=== PATIENT | male | born 1965 | race Caucasian/White ===

== ENCOUNTER 2017-03-22 14:29 | Emergency (ER) | payer BC ==
[2017-03-22 14:53] VITALS: RESP 20
[2017-03-22] MEDS ORDERED: MORPHINE SULFATE 4 MG/ML SYRINGE IV STA (15:51)
[2017-03-22] MEDS ORDERED: SODIUM CHLORIDE 0.9% 1,000 ML IV STA (15:51)
[2017-03-22] MEDS ORDERED: KETOROLAC 30 MG/ML 1 ML VIAL IVP STA (15:52)
--- NOTE | 2017-03-22 15:52 | ED ---
General Adult HPI - General Chief complaint: Extremity Injury, Lower Stated complaint: Fall/sent by [employer] Time Seen by Provider: 03/22/17 15:42 Source: patient, RN notes reviewed, old records reviewed Mode of arrival: ambulatory Limitations: no limitations - History of Present Illness Initial comments: This is a 51-year-old male is presented here today for evaluation of right leg pain and swelling. Patient denies any significant medical history, takes no medications. Patient recently seen in urgent care earlier today for evaluation of her lower extremity edema and pain, severe x-ray pain swallowing, swelling worse and he wakes up in the morning better through the day, symptoms all started after a fall off a ladder 3 days 4 days ago. Patient sustained some abrasions to his anterior germain which now have erythema and pain. As well as increased swelling and bruising of his right leg more so than his left but also some bruising on his left leg as well. Patient bilateral lower extremity edema much worse on the right with no prior history of leg edema - Related Data Home Medications Medication Instructions Recorded Confirmed Omeprazole [PriLOSEC] 20 mg PO BID 06/30/15 03/22/17 Naproxen [Naprosyn] 500 mg PO BID 03/22/17 03/22/17 Testosterone [Androgel 1.62% Gel 2 applic TOPICAL DAILY 03/22/17 03/22/17 Pump] Previous Rx's Medication Instructions Recorded Cephalexin [Keflex] 500 mg PO Q6HR #28 cap 03/22/17 HYDROcodone/APAP 5-325MG [[place] 1 tab PO Q6HR PRN #30 tab 03/22/17 5-325] Allergies Allergy/AdvReac Type Severity Reaction Status Date / Time Iodinated Contrast Media - Allergy Anaphylaxis Verified 03/22/17 14:53 Oral and [Iodinated Contrast Media - IV Dye] General Anesthesia AdvReac Severe Malignant Uncoded 03/22/17 16:06 Hyperthermia Review of Systems ROS Statement: Those systems with pertinent positive or pertinent negative responses have been documented in the HPI. ROS Other: All systems not noted in ROS Statement are negative. Past Medical History Past Medical History: No Reported History History of Any Multi-Drug Resistant Organisms: None Reported Past Surgical History: Appendectomy, Joint Replacement, Orthopedic Surgery Past Psychological History: No Psychological Hx Reported Smoking Status: Former smoker Past Alcohol Use History: Occasional Past Drug Use History: None Reported General Exam Limitations: no limitations General appearance: alert, in no apparent distress Head exam: Present: atraumatic, normocephalic, normal inspection Eye exam: Present: normal appearance, PERRL, EOMI. Absent: scleral icterus, conjunctival injection, periorbital swelling ENT exam: Present: normal exam, mucous membranes moist Neck exam: Present: normal inspection. Absent: tenderness, meningismus, lymphadenopathy Respiratory exam: Present: normal lung sounds bilaterally. Absent: respiratory distress, wheezes, rales, rhonchi, stridor Cardiovascular Exam: Present: regular rate, normal rhythm, normal heart sounds. Absent: systolic murmur, diastolic murmur, rubs, gallop, clicks GI/Abdominal exam: Present: soft, normal bowel sounds. Absent: distended, tenderness, guarding, rebound, rigid Extremities exam: Present: normal inspection, full ROM, normal capillary refill , other (Right LE edema, ecchymosis through thigs, 2 abrasions with ulceration and healing w surrounding edema, erythema and warmth, mild decrease in sensation ). Absent: tenderness, pedal edema, joint swelling, calf tenderness Back exam: Present: normal inspection Neurological exam: Present: alert, oriented X3, CN II-XII intact Psychiatric exam: Present: normal affect, normal mood Skin exam: Present: warm, dry, intact, normal color. Absent: rash Course Vital Signs 03/22/17 03/22/17 14:51 18:53 Temperature 98.1 F 98.2 F Pulse Rate 78 66 Respiratory 20 20 Rate Blood Pressure 133/74 122/57 O2 Sat by Pulse 99 99 Oximetry - Reevaluation(s) Reevaluation #1: 03/22/17 19:53 Patient still complaining of severe pain, Dr. Verdugo was called to evaluate patient regarding possible compartment syndrome versus cause of pain. Patient will be given pain control Medical Decision Making - Medical Decision Making 54 male to the ER for evaluation of right lower extremity pain. Patient has severe pain in the hematoma right leg. Patient was given pain control, and - Lab Data Result diagrams: 03/22/17 16:20 03/22/17 16:20 Lab Results 03/22/17 03/22/17 03/22/17 Range/Units 16:20 16:20 16:20 WBC 7.4 (3.8-10.6) k/uL RBC 4.39 (4.30-5.90) m/uL Hgb 15.1 (13.0-17.5) gm/dL Hct 41.5 (39.0-53.0) % MCV 94.7 (80.0-100.0) fL MCH 34.5 (25.0-35.0) pg MCHC 36.4 (31.0-37.0) g/dL RDW 13.0 (11.5-15.5) % Plt Count 224 (150-450) k/uL Neutrophils % 68 % Lymphocytes % 20 % Monocytes % 6 % Eosinophils % 3 % Basophils % 0 % Neutrophils # 5.0 (1.3-7.7) k/uL Lymphocytes # 1.5 (1.0-4.8) k/uL Monocytes # 0.4 (0-1.0) k/uL Eosinophils # 0.2 (0-0.7) k/uL Basophils # 0.0 (0-0.2) k/uL PT (9.0-12.0) sec INR (<1.1) APTT (22.0-30.0) sec D-Dimer (<0.60) mg/L FEU Sodium 141 (137-145) mmol/L Potassium 4.4 (3.5-5.1) mmol/L Chloride 105 (98-107) mmol/L Carbon Dioxide 25 (22-30) mmol/L Anion Gap 11 mmol/L BUN 22 H (9-20) mg/dL Creatinine 0.80 (0.66-1.25) mg/dL Est GFR (MDRD) Af Amer >60 (>60 ml/min/1.73 sqM) Est GFR (MDRD) Non-Af >60 (>60 ml/min/1.73 sqM) Glucose 110 H (74-99) mg/dL Calcium 9.1 (8.4-10.2) mg/dL Phosphorus 3.0 (2.5-4.5) mg/dL Magnesium 1.9 (1.6-2.3) mg/dL Total Bilirubin 0.6 (0.2-1.3) mg/dL AST 35 (17-59) U/L ALT 44 (21-72) U/L Alkaline Phosphatase 66 (38-126) U/L Total Creatine Kinase 351 H (55-170) U/L CK-MB (CK-2) 1.7 (0.0-2.4) ng/mL CK-MB (CK-2) Rel Index 0.5 C-Reactive Protein 9.3 (<10.0) mg/L Total Protein 6.8 (6.3-8.2) g/dL Albumin 3.9 (3.5-5.0) g/dL 03/22/17 Range/Units 16:20 WBC (3.8-10.6) k/uL RBC (4.30-5.90) m/uL Hgb (13.0-17.5) gm/dL Hct (39.0-53.0) % MCV (80.0-100.0) fL MCH (25.0-35.0) pg MCHC (31.0-37.0) g/dL RDW (11.5-15.5) % Plt Count (150-450) k/uL Neutrophils % % Lymphocytes % % Monocytes % % Eosinophils % % Basophils % % Neutrophils # (1.3-7.7) k/uL Lymphocytes # (1.0-4.8) k/uL Monocytes # (0-1.0) k/uL Eosinophils # (0-0.7) k/uL Basophils # (0-0.2) k/uL PT 9.9 (9.0-12.0) sec INR 1.0 (<1.1) APTT 23.2 (22.0-30.0) sec D-Dimer 0.42 (<0.60) mg/L FEU Sodium (137-145) mmol/L Potassium (3.5-5.1) mmol/L Chloride (98-107) mmol/L Carbon Dioxide (22-30) mmol/L Anion Gap mmol/L BUN (9-20) mg/dL Creatinine (0.66-1.25) mg/dL Est GFR (MDRD) Af Amer (>60 ml/min/1.73 sqM) Est GFR (MDRD) Non-Af (>60 ml/min/1.73 sqM) Glucose (74-99) mg/dL Calcium (8.4-10.2) mg/dL Phosphorus (2.5-4.5) mg/dL Magnesium (1.6-2.3) mg/dL Total Bilirubin (0.2-1.3) mg/dL AST (17-59) U/L ALT (21-72) U/L Alkaline Phosphatase (38-126) U/L Total Creatine Kinase (55-170) U/L CK-MB (CK-2) (0.0-2.4) ng/mL CK-MB (CK-2) Rel Index C-Reactive Protein (<10.0) mg/L Total Protein (6.3-8.2) g/dL Albumin (3.5-5.0) g/dL - Radiology Data Radiology results: report reviewed (US negative for DVT, XR tib fib,/ femur negative for fracture), image reviewed Disposition Clinical Impression: Leg edema, right, Cellulitis, leg Disposition: HOME SELF-CARE Condition: Good Instructions: Cellulitis (ED), Leg Edema (ED), Hematoma (ED) Prescriptions: Cephalexin [Keflex] 500 mg PO Q6HR #28 cap HYDROcodone/APAP 5-325MG [[place] 5-325] 1 tab PO Q6HR PRN #30 tab PRN Reason: Pain Referrals: Juwan Verdugo DO [Doctor of Osteopathic Medicine] - 1-2 days
[2017-03-22] MEDS ORDERED: ACETAMINOPHEN IV (For NPO) 1,000 MG in EMPTY BAG 1 BAG IVPB STA (15:54)
[2017-03-22 16:50] LABS: Basophils % (A) 0 %; CH 33.8; CHCM 35.9; Eosinophils # (A) 0.2 k/uL (0-0.7); Eosinophils % (A) 3 %; HCT 41.5 % (39.0-53.0); HDW 2.79; HGB 15.1 gm/dL (13.0-17.5); Luc # (Auto) 0.23; Luc % (Auto) 3; Lymphocytes # (A) 1.5 k/uL (1.0-4.8); Lymphocytes % (A) 20 %; MCH 34.5 pg (25.0-35.0); MCHC 36.4 g/dL (31.0-37.0); MCV 94.7 fL (80.0-100.0); Mean Platelet Volume 6.8; Monocytes # (A) 0.4 k/uL (0-1.0); Monocytes % (A) 6 %; Neutrophils % (A) 68 %; RBC 4.39 m/uL (4.30-5.90); WBC 7.4 k/uL (3.8-10.6); WBC (Perox) 7.47
[2017-03-22 16:55] LABS: ALT 44 U/L (21-72); AST 35 U/L (17-59); Alkaline Phosphatase 66 U/L (38-126); Anion Gap 11 mmol/L; Blood Urea Nitrogen 22 mg/dL (9-20); C Reactive Protein 9.3 mg/L (<10.0); Calcium 9.1 mg/dL (8.4-10.2); Carbon Dioxide 25 mmol/L (22-30); Chloride 105 mmol/L (98-107); Glucose 110 mg/dL (74-99); Magnesium 1.9 mg/dL (1.6-2.3); Non-African American GFR(MDRD) >60 (>60 ml/min/1.73 sqM); Potassium 4.4 mmol/L (3.5-5.1); Sodium 141 mmol/L (137-145); Total Bilirubin 0.6 mg/dL (0.2-1.3); Total Protein 6.8 g/dL (6.3-8.2)
[2017-03-22 16:59] LABS: Partial Thromboplastin Time 23.2 sec (22.0-30.0); Prothrombin Time 9.9 sec (9.0-12.0)
[2017-03-22 17:18] LABS: Creatine Kinase MB 1.7 ng/mL (0.0-2.4)
--- NOTE | 2017-03-22 17:38 | US ---
EXAMINATION TYPE: US venous doppler duplex LE RT DATE OF EXAM: 03/22/2017 3:52 PM COMPARISON: NONE CLINICAL HISTORY: Pain, injury. SIDE PERFORMED: Right TECHNIQUE: The lower extremity deep venous system is examined utilizing real time linear array sonog jonathan with graded compression, doppler sonography and color-flow sonography. VESSELS IMAGED: External Iliac Vein (EIV) Common Femoral Vein Deep Femoral Vein Greater Saphenous Vein * Femoral Vein Popliteal Vein Small Saphenous Vein * Proximal Calf Veins (* superficial vessels) Right Leg: Negative for DVT IMPRESSION: Normal exam. No evidence of deep venous thrombosis in the right leg.
--- NOTE | 2017-03-22 20:06 | P.HPOR ---
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 He had significant pain in his right leg he thought that he broke his leg at the time of the injury. He was able to get up and starts moving around with significant pain over his thigh. He decided that point that he would wait and see how things went with the injury and chose not to present to the hospital at that point. The patient says her significant swelling over his thigh which is traveling down his leg into his lower leg and calf. He was able to bear weight he is able to bend his knee but his ankle and toes and try to work this week. He says he has been up and down at work doing stairs and has not been able to elevate his leg at work. He has significant swelling through the day which resolved to some degree overnight and into the morning when he has his leg elevated. He says the pain has been persistent but is worse with the swelling. The pain is mainly over his right inner thigh towards the medial aspect of his knee and now is down and his anterior lower leg and calf. He says he is feeling numbness over his anterior leg over his tibia and is not having pain in his foot and toes. He denies other injury. He denies any chest pain shortness of breath. He denies any history of injury similar to this at his leg before. He says he has had knee surgeries on his right knee in the past but has not been having problems with his right knee. He denies any pain in the left lower extremity. Denies pain in his neck or upper extremity. Denies any chest pain or shortness of breath. Review of Systems As stated in HPI. He admits to some numbness in his anterior tibia. He says is worse with swelling. He says he has been having significant swelling in his right lower leg. He has no numbness tingling in his toes and foot. No back pain. Past Medical History Past Medical History: No Reported History, Musculoskeletal Disorder (History of prior arthroscopic surgeries in his knee on the right. Some history of left lateral epicondylitis) History of Any Multi-Drug Resistant Organisms: None Reported Past Surgical History: Appendectomy, Joint Replacement, Orthopedic Surgery Past Psychological History: No Psychological Hx Reported Smoking Status: Former smoker Past Alcohol Use History: Occasional Past Drug Use History: None Reported Medications and Allergies Home Medications Medication Instructions Recorded Confirmed Type Omeprazole [PriLOSEC] 20 mg PO BID 06/30/15 03/22/17 History Naproxen [Naprosyn] 500 mg PO BID 03/22/17 03/22/17 History Testosterone [Androgel 1.62% Gel 2 applic TOPICAL DAILY 03/22/17 03/22/17 History Pump] Allergies Allergy/AdvReac Type Severity Reaction Status Date / Time Iodinated Contrast Media - Allergy Anaphylaxis Verified 03/22/17 14:53 Oral and [Iodinated Contrast Media - IV Dye] General Anesthesia AdvReac Severe Malignant Uncoded 03/22/17 16:06 Hyperthermia Physical Examination Osteopathic Statement: *. No significant issues noted on an osteopathic structural exam other than those noted in the History and Physical/Consult. - Knee left Appearance: ecchymosis (At the patient's right lower extremity there is significant ecchymosis over his right inner thigh. His thigh is tender but has some swelling. He has some point tenderness over his medial proximal tibia. There is no specific effusion in his knee but he has diffuse swelling in his knee. There is some superficial abrasion 2 had his anterior tibia there is no purulence there is no erythema. He has diffuse swelling at his right lower leg. His calf has some diffuse tenderness as does his anterior tibialis. He is able to flex and extend his knee he flexes knee to approximately 110 and extends it fully. He is able to lift his leg up off the bed he has no pain with internal or external rotation at his hip. He has sustained dorsal flexion plantarflexion and EHL intact. Pulses are 2 out of 4 capillary refill less than 2 seconds he does not have pain with passive range of motion at his ankle foot and toes. His compartments have some swelling but they're still relatively soft.) Results - Labs Labs: Abnormal Lab Results - Last 24 Hours (Table) 03/22/17 03/22/17 Range/Units 16:20 16:20 BUN 22 H (9-20) mg/dL Glucose 110 H (74-99) mg/dL Total Creatine Kinase 351 H (55-170) U/L H & H 03/22/17 Range/Units 16:20 Hgb 15.1 (13.0-17.5) gm/dL Hct 41.5 (39.0-53.0) % Coagulation 03/22/17 Range/Units 16:20 INR 1.0 (<1.1) Result Diagrams: 03/22/17 16:20 03/22/17 16:20 - Diagnostic results Hip x-ray: report reviewed, image reviewed (X-rays of his right femur do not show evidence of any fracture. There is no evidence of dislocation or bony erosion.) Assessment and Plan Plan: Status post fall from approximately 4 feet approximately 4 days ago Right lower extremity pain and swelling with ecchymosis Significant soft tissue injury right lower extremity Possible soft tissue shearing at his right medial thigh with hematoma accumulation The patient has significant soft tissue injury to his right leg. I think that the primary issue is the shearing type hematoma that is developed his right proximal thigh which is acute due to his fall. He seems to have had some bleeding which traveled down around his knee and right lower leg causing severe pain and swelling in his right lower leg. His compartments remain soft and he is not having pain with passive range of motion. He still has active in intact range of motion at his knee ankle foot and toes I do not think that he has an acute compartment syndrome. 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 He is remain off work tomorrow and should follow up with me as an outpatient on March 24. He may weight-bear but should avoid any significant upright position and should try to remain horizontal with his leg elevated.. He should ice over his right proximal thigh. He has been taking regular anti-inflammatories chronically and this may have caused some thinning of his blood. I think that he may do well with some acute pain medication to help control his pain in the short-term. I discussed this with him and his . They're agreeable. If he has worsening she returned back to the emergency room but she is maintaining or improving I think I can follow him up on an outpatient basis in the next 2 days. He should remain off work at least until he is seen in the office. I answered his questions best my ability G understand he is agreeable. I discussed case with Dr. Soares In the emergency room and he is agreeable as well. They'll plan for his discharge from the emergency room for follow-up in just 2 days. Time with Patient: Greater than 30
[2017-03-22 20:31] VITALS: BP 124/60; PULSE 85; TEMP 98.5
== END 2017-03-22 20:31 | disposition home or self-care (01) ==
LOC: EC 14:29
DX: L03.115 Cellulitis of right lower limb (principal); S80.11XA Contusion of right lower leg, initial encounter; S80.12XA Contusion of left lower leg, initial encounter; W11.XXXA Fall on and from ladder, initial encounter; Z91.041 Radiographic dye allergy status; Z87.891 Personal history of nicotine dependence; Z88.4 Allergy status to anesthetic agent; Z79.899 Other long term (current) drug therapy
CPT/HCPCS: 99284; 96374; 96361; 36415; 85379; 80053; 82550; 82553; 83735; 84100; 85025; 85610; 85730; 86140; 87040; 93971; J1885; J0131

== ENCOUNTER 2017-03-27 19:25 | Inpatient (IN) | payer BC ==
--- NOTE | 2017-03-27 20:05 | ED ---
Lower Extremity Injury HPI - General Chief Complaint: Extremity Injury, Lower Stated Complaint: Leg Infection Time Seen by Provider: 03/27/17 19:43 Source: patient Mode of arrival: ambulatory Limitations: no limitations - History of Present Illness Initial Comments: Patient is a 51-year-old male who presents with a chief complaint of cellulitis of the right lower extremity. The patient states that this has been going on for 3 days secondary to an injury he sustained. Patient fell onto his right leg , in a freshwater environment. Patient states that it was a contaminated area as there was animal (duck) fecal material present where he fell. Patient was seen at urgent care, and by orthopedic surgery. Orthopedics is concerned that there may be a stress fracture, urgent care diagnosed him with cellulitis, placed him on Keflex, and discharged him. Over the last day, the affected area has been getting larger. There are 2 areas of abrasion, both of which are weeping purulent material. Patient describes his pain as sharp and aching, mostly throbbing. His pain is aggravated by bearing weight, and flexing and extending the ankle. MD Complaint: leg injury Onset/Timin -: days(s) Injury: Leg: Right (Right lower extremity between the knee and ankle. Affected area is not circumferential however it is rapidly growing.) Type of Injury: blunt Place: street/outdoors Severity: moderate Improves With: NSAID Worsens With: weight bearing, movement Context: fall Associated Symptoms: swelling Treatments Prior to Arrival: other (Keflex) - Related Data Home Medications Medication Instructions Recorded Confirmed Omeprazole [PriLOSEC] 20 mg PO BID 06/30/15 03/27/17 Testosterone [Androgel 1.62% Gel 2 applic TOPICAL DAILY 03/22/17 03/27/17 Pump] Ibuprofen [Motrin] 800 mg PO TID PRN 03/27/17 03/27/17 Previous Rx's Medication Instructions Recorded Cephalexin [Keflex] 500 mg PO Q6HR #28 cap 03/22/17 Allergies Allergy/AdvReac Type Severity Reaction Status Date / Time Iodinated Contrast Media - Allergy Anaphylaxis Verified 03/27/17 21:57 Oral and [Iodinated Contrast Media - IV Dye] General Anesthesia AdvReac Severe Malignant Uncoded 03/27/17 19:37 Hyperthermia Review of Systems ROS Statement: Those systems with pertinent positive or pertinent negative responses have been documented in the HPI. ROS Other: All systems not noted in ROS Statement are negative. Skin: Reports: lesions Past Medical History Past Medical History: No Reported History History of Any Multi-Drug Resistant Organisms: None Reported Past Surgical History: Appendectomy, Joint Replacement, Orthopedic Surgery Additional Past Surgical History / Comment(s): bilat knee x 6, c5-6 fusion 1999 , right rotator cup, deviated septum rx Past Psychological History: No Psychological Hx Reported Smoking Status: Former smoker Past Alcohol Use History: Occasional Past Drug Use History: None Reported General Exam Limitations: no limitations General appearance: alert, in no apparent distress Head exam: Present: atraumatic, normocephalic Eye exam: Present: normal appearance, PERRL ENT exam: Present: mucous membranes moist Neck exam: Present: normal inspection Respiratory exam: Present: normal lung sounds bilaterally Cardiovascular Exam: Present: regular rate, normal rhythm GI/Abdominal exam: Present: soft Extremities exam: Present: tenderness (He has tenderness to palpation of the right lower extremity. The skin is erythematous, with 2 areas of abrasion there is purulent drainage from both sites anteriorly.) Neurological exam: Present: alert, oriented X3 Psychiatric exam: Present: normal affect, normal mood Skin exam: Present: erythema, abrasion, other (Abrasions and erythema as described in the musculoskeletal exam) Course Vital Signs 03/27/17 03/27/17 03/27/17 19:30 21:26 22:01 Temperature 97.8 F 97.9 F Pulse Rate 85 71 63 Respiratory 18 18 16 Rate Blood Pressure 138/72 140/62 141/74 O2 Sat by Pulse 97 98 98 Oximetry Medical Decision Making - Medical Decision Making 8:07 PM Patient presents with cellulitis of the right lower extremity, refractory to outpatient antibiotic therapy. Given the duration, and rapid spreading of the erythematous area, it would be best to admit the patient for IV antibiotics. The patient was started on vancomycin and cefepime for broad coverage given the patient was in a freshwater, contaminated environment. Patient has seen Dr. Verdugo on an outpatient basis and he will be consult at this time. Wound cultures will be sent. 10:05 PM Lab evaluation of this patient is unremarkable except for an elevated CRP of 14.5. X-ray of the right tib-fib does not show any acute process, or air within the subcu tissue. Patient was started on vancomycin, and cefepime. This case was discussed with Dr. Knox's nurse practitioner, Swathi Vicente who accepts admission of this patient for IV antibiotics. Dr. Verdugo has been consult as the patient was supposed to see him in his office tomorrow. Patient remained stable in the emergency department. He is stable for transfer to the floor. - Lab Data Result diagrams: 03/27/17 20:15 03/27/17 19:55 Lab Results 03/27/17 03/27/17 Range/Units 19:55 20:15 WBC 7.6 (3.8-10.6) k/uL RBC 4.43 (4.30-5.90) m/uL Hgb 15.0 (13.0-17.5) gm/dL Hct 41.5 (39.0-53.0) % MCV 93.6 (80.0-100.0) fL MCH 33.9 (25.0-35.0) pg MCHC 36.2 (31.0-37.0) g/dL RDW 12.8 (11.5-15.5) % Plt Count 241 (150-450) k/uL Neutrophils % 62 % Lymphocytes % 23 % Monocytes % 7 % Eosinophils % 4 % Basophils % 1 % Neutrophils # 4.7 (1.3-7.7) k/uL Lymphocytes # 1.7 (1.0-4.8) k/uL Monocytes # 0.6 (0-1.0) k/uL Eosinophils # 0.3 (0-0.7) k/uL Basophils # 0.1 (0-0.2) k/uL ESR 13 (0-15) mm/hr Sodium 142 (137-145) mmol/L Potassium 4.1 (3.5-5.1) mmol/L Chloride 107 (98-107) mmol/L Carbon Dioxide 25 (22-30) mmol/L Anion Gap 10 mmol/L BUN 21 H (9-20) mg/dL Creatinine 0.90 (0.66-1.25) mg/dL Est GFR (MDRD) Af Amer >60 (>60 ml/min/1.73 sqM) Est GFR (MDRD) Non-Af >60 (>60 ml/min/1.73 sqM) Glucose 96 (74-99) mg/dL Calcium 9.7 (8.4-10.2) mg/dL C-Reactive Protein 14.5 H (<10.0) mg/L Disposition Clinical Impression: Cellulitis, Failure of outpatient treatment, Cellulitis, leg Disposition: ADMITTED IP TO THIS HOSP Referrals: Jewell August MD [Primary Care Provider] - 1-2 days Decision to Admit Reason: Admit from [facility] - Out of Hospital Transfer - Req. Specs Out of Hospital Transfer - Requested Specifics: Other Non-Acute
[2017-03-27] MEDS ORDERED: CEFEPIME 1 GM in SODIUM CHLORIDE 0.9% 50 ML IVPB STA (20:06)
[2017-03-27] MEDS ORDERED: IV VANCOMYCIN PER PHARMACY 1 EACH MISC MISCELLANE PRN (20:12)
[2017-03-27] MEDS ORDERED: VANCOMYCIN 2,250 MG in SODIUM CHLORIDE 0.9% 500 ML IVPB STA (20:13)
[2017-03-27 20:38] LABS: Basophils # (A) 0.1 k/uL (0-0.2); Basophils % (A) 1 %; CH 33.7; CHCM 36.1; Eosinophils # (A) 0.3 k/uL (0-0.7); Eosinophils % (A) 4 %; HCT 41.5 % (39.0-53.0); HDW 2.92; Luc # (Auto) 0.22; Luc % (Auto) 3; Lymphocytes # (A) 1.7 k/uL (1.0-4.8); Lymphocytes % (A) 23 %; MCH 33.9 pg (25.0-35.0); MCHC 36.2 g/dL (31.0-37.0); MCV 93.6 fL (80.0-100.0); Mean Platelet Volume 6.8; Monocytes # (A) 0.6 k/uL (0-1.0); Monocytes % (A) 7 %; Neutrophils # (A) 4.7 k/uL (1.3-7.7); Neutrophils % (A) 62 %; RBC 4.43 m/uL (4.30-5.90); RDW 12.8 % (11.5-15.5); WBC 7.6 k/uL (3.8-10.6); WBC (Perox) 7.93
[2017-03-27 20:50] LABS: Anion Gap 10 mmol/L; Blood Urea Nitrogen 21 mg/dL (9-20); C Reactive Protein 14.5 mg/L (<10.0); Calcium 9.7 mg/dL (8.4-10.2); Carbon Dioxide 25 mmol/L (22-30); Chloride 107 mmol/L (98-107); Glucose 96 mg/dL (74-99); Non-African American GFR(MDRD) >60 (>60 ml/min/1.73 sqM); Potassium 4.1 mmol/L (3.5-5.1); Sodium 142 mmol/L (137-145)
--- NOTE | 2017-03-27 21:16 | XR ---
EXAMINATION TYPE: XR tibia fibula RT DATE OF EXAM: 03/27/2017 COMPARISON: NONE HISTORY: Pain after trauma TECHNIQUE: 4 orthogonal views from the knee to the ankle FINDINGS: Bones and joints and soft tissues are unremarkable. No radiopaque foreign bodies. No soft t issue emphysema. IMPRESSION: Negative examination.
[2017-03-27 21:54] LABS: Erythrocyte Sedimentation Rate 13 mm/hr (0-15)
[2017-03-27] MEDS ORDERED: ACETAMINOPHEN TAB 325 MG TAB PO PRN (21:59)
[2017-03-27] MEDS ORDERED: NALOXONE 0.4 MG/ML 1 ML VIAL IV PRN (21:59)
[2017-03-27] MEDS ORDERED: ONDANSETRON 4 MG/2 ML VIAL IVP STA (22:28)
[2017-03-27] MEDS ORDERED: MORPHINE SULFATE 4 MG/ML SYRINGE IVP STA (22:28)
[2017-03-27] MEDS ORDERED: MORPHINE SULFATE 4 MG/ML SYRINGE IVP PRN (22:29)
[2017-03-27] MEDS ORDERED: ONDANSETRON 4 MG/2 ML VIAL IVP PRN (22:29)
[2017-03-28] MEDS: oxyCODONE-APAP 5-325MG 1 EACH TAB PO PRN ×2 (02:28→08:49)
[2017-03-28] MEDS: VANCOMYCIN 2,000 MG in SODIUM CHLORIDE 0.9% 500 ML IVPB SCH ×3 (03:36→19:42)
[2017-03-28 05:51] VITALS: BMI 34.3
[2017-03-28 08:45] LABS: Anion Gap 7 mmol/L; Blood Urea Nitrogen 19 mg/dL (9-20); Calcium 8.5 mg/dL (8.4-10.2); Carbon Dioxide 28 mmol/L (22-30); Chloride 106 mmol/L (98-107); Glucose 94 mg/dL (74-99); Non-African American GFR(MDRD) >60 (>60 ml/min/1.73 sqM); Potassium 4.5 mmol/L (3.5-5.1); Sodium 141 mmol/L (137-145)
[2017-03-28] MEDS ORDERED: IBUPROFEN 200 MG TAB PO PRN (11:21)
[2017-03-28] MEDS ORDERED: HYDROmorphone 1 MG/ML 1 ML SYRINGE IVP PRN (11:22)
[2017-03-28] MEDS: HEPARIN SODIUM,PORCINE 5,000 UNIT/ML 1 ML VIAL SQ SCH ×2 (12:42→20:17)
[2017-03-28] MEDS: PANTOPRAZOLE 40 MG TABLET PO SCH ×2 (12:45→18:18)
--- NOTE | 2017-03-28 14:00 | P.CNOR ---
History of Present Illness - HPI Consult date: 03/28/17 History of present illness: This is a pleasant 51-year-old male who is admitted for failure of outpatient treatment of right lower extremity cellulitis. Patient states on March 18 he was washing his boat and slipped hitting his right leg on the wooden stairs of a dock. Patient states the mooney water surrounding the dock appeared contaminated. Patient states he had significant pain to the right lower extremity at this time and noticed two small open wounds on the right germain that were white. Patient states he was unable to put a lot of weight on the right lower extremity the first day of injury but has since been able to ambulate. Patient states he also had pain and bruising to the right thigh but this has improved. Two days after this incident patient noticed redness around the open wounds of the right lower extremity. Patient also noticed increased swelling and redness. Patient was treated at an urgent care and the emergency room with 2 doses of Rocephin and oral Keflex. Patient reports at this time a Doppler was done and was negative for DVT and compartment syndrome. Patient was also seen at [facility] for follow up as an outpatient and had an MRI done. Patient is unsure of the results of the MRI at this time. X-rays have been taken of the right lower extremity and patient states they were negative for any fracture. Patient reports that the erythema continued to worsen so he presented to the on 03/27/17 and was admitted for IV antibiotics. Today the patient states the erythema and swelling have started to improve after antibiotic therapy. Patient still has significant pain to the right lower extremity from the knee down. Patient states he has been able to ambulate. Patient denies any numbness, tingling or weakness today but states on the first day of injury his right lower extremity was numb. Patient denies any fever/ chills. Review of Systems See HPI. Past Medical History Past Medical History: No Reported History History of Any Multi-Drug Resistant Organisms: None Reported Past Surgical History: Appendectomy, Joint Replacement, Orthopedic Surgery Additional Past Surgical History / Comment(s): bilat knee x 6, c5-6 fusion 1999 , right rotator cup, deviated septum rx Past Anesthesia/Blood Transfusion Reactions: Family Hisory of Malignant Hyperthermia Past Psychological History: No Psychological Hx Reported Smoking Status: Former smoker Past Alcohol Use History: Occasional Past Drug Use History: None Reported - Past Family History Mother Family Medical History: No Reported History Father Family Medical History: No Reported History Medications and Allergies Home Medications Medication Instructions Recorded Confirmed Type Omeprazole [PriLOSEC] 20 mg PO BID 06/30/15 03/27/17 History Testosterone [Androgel 1.62% Gel 2 applic TOPICAL DAILY 03/22/17 03/27/17 History Pump] Ibuprofen [Motrin] 800 mg PO TID PRN 03/27/17 03/27/17 History Allergies Allergy/AdvReac Type Severity Reaction Status Date / Time Iodinated Contrast Media - Allergy Anaphylaxis Verified 03/27/17 21:57 Oral and [Iodinated Contrast Media - IV Dye] General Anesthesia AdvReac Severe Malignant Uncoded 03/27/17 19:37 Hyperthermia Physical Examination An exam of the right lower extremity there is generalized tenderness to palpation from the knee down. Patient has swelling of the right lower extremity especially in the area from the knee to the foot. There are 2 wounds located on the right germain with surrounding erythema. This area is warm to touch. No active drainage. Dorsalis pedis pulses are 2+. Patient has full foot and ankle motion. Patient has good range of motion of the knee. Patient has some ecchymosis to the medial aspect of the right thigh but the patient states this is improving. Neurovascular status is intact. Results X-rays of the right tibia/fibula were reviewed showing no acute fracture or dislocation. An MRI of the right lower extremity was done on March 24, 2017 at [facility] showing #1 subcutaneous hematoma within the anteromedial aspect of the proximal right calf. #2 diffuse right calf edema. Report by Dr. Yolanda BELTRAN - Labs Labs: Abnormal Lab Results - Last 24 Hours (Table) 03/27/17 Range/Units 19:55 BUN 21 H (9-20) mg/dL C-Reactive Protein 14.5 H (<10.0) mg/L Microbiology - Last 24 Hours (Table) 03/27/17 20:50 Gram Stain - Preliminary Leg - Right Wound Culture - Preliminary 03/27/17 20:50 Anaerobic Culture - Preliminary Leg - Right H & H 03/27/17 Range/Units 20:15 Hgb 15.0 (13.0-17.5) gm/dL Hct 41.5 (39.0-53.0) % Result Diagrams: 03/27/17 20:15 03/28/17 07:11 Assessment and Plan (1) Hematoma Status: Acute (2) Right leg pain Status: Acute (3) Cellulitis Status: Acute (4) Leg edema, right Status: Acute Plan: #1. Continue pain control #2. Continue IV antibiotics per infectious disease #3. Continue elevation of right lower extremity #4. Will follow the patient closely.
[2017-03-29] MEDS: oxyCODONE-APAP 5-325MG 1 EACH TAB PO PRN ×2 (01:42→23:33)
[2017-03-29] MEDS: VANCOMYCIN 2,000 MG in SODIUM CHLORIDE 0.9% 500 ML IVPB SCH ×2 (03:31→12:48)
[2017-03-29] MEDS: PANTOPRAZOLE 40 MG TABLET PO SCH ×2 (07:28→20:06)
[2017-03-29] MEDS: HEPARIN SODIUM,PORCINE 5,000 UNIT/ML 1 ML VIAL SQ SCH ×2 (07:28→20:09)
--- NOTE | 2017-03-29 09:18 | HP ---
The chief complaints are pain and swelling of the right leg. HISTORY OF PRESENT ILLNESS: This is a 51-year-old gentleman with the past medical history of appendectomy, DJD, otherwise, no other past medical history, being followed by Dr. August in the outpatient setting, apparently fell on the dog previously about on March 18. The patient had some erythema. Patient took some Keflex and the patient also noticed some increasing erythema and swelling and pain in the right leg and because of concern, the patient came to [facility] for further evaluation and treatment. The patient also has seen Dr. Verdugo for evaluation to rule out hairline fracture also. There is no history of any fever, chills or rigors. PAST MEDICAL HISTORY: History of DJD, history of appendectomy. Medications prior to admission: 1. Testosterone gel daily. 2. Prilosec 20 b.i.d. 3. Motrin 800 mg t.i.d. p.r.n. 4. Keflex 500 mg q.6. Allergies are IODINATED CONTRAST DYE and GENERAL ANESTHESIA. FAMILY HISTORY: No history of heart disease or strokes in the family. SOCIAL HISTORY: Previous history of smoking. No history of current smoke, alcohol intake. REVIEW OF SYSTEMS: HEENT: No diminished hearing or vision. CARDIOVASCULAR SYSTEM: No angina or palpitations. RESPIRATORY: No cough. GI: No nausea. : No dysuria. NERVOUS SYSTEM: No numbness or weakness. ALLERGY/IMMUNOLOGY: No asthma or hayfever. MUSCULOSKELETAL: As mentioned earlier. HEMATOLOGY: No history of anemia. ENDOCRINE: No history of diabetes or hypothyroidism. CONSTITUTIONAL: As mentioned earlier. DERMATOLOGY: Negative. RHEUMATOLOGY: As mentioned earlier. PHYSICAL EXAM: Patient is alert and oriented x3. Pulse is 60, blood pressure 100/60, respirations 18, temperature is 97.4, pulse ox 99% on room air. HEENT: Conjunctivae normal. NECK: No jugular venous distension. CARDIOVASCULAR SYSTEM: S1, S2, muffled. RESPIRATORY: Breath sounds diminished at the bases, a few rhonchi, no crackles. ABDOMEN: Soft, nontender. LEGS: Right leg significant cellulitis and erythema present. Pain also present. NERVOUS SYSTEM: No focal deficits. The lab investigations are CBC and BMP within normal limits. ASSESSMENT: 1. Acute cellulitis of the right leg with failure of outpatient treatment. 2. Recent trauma. 3. Degenerative joint disease. 4. History of C5-6 fusion. 5. History of leg edema, right. RECOMMENDATION: Recommend to continue with the current medication. Continue with the symptomatic treatment. Otherwise, Orthopedic Surgery evaluation noted. On broad spectrum IV antibiotics, Infectious Disease evaluation. X- rays are negative at this time. Patient also had venous Doppler done last week which showed no evidence of DVT. Will continue to monitor. Prognosis guarded. DVT prophylaxis. Further recommendations to follow. A copy of this will be forwarded to Dr. August who is the primary physician. SARA
--- NOTE | 2017-03-29 10:53 | P.CONS ---
History of Present Illness - Reason for Consult Consult date: 03/28/17 Right electrolytes Requesting physician: Marcy Knox - Chief Complaint Right leg pain and swelling redness - History of Present Illness Patient is a 51 year old male who did sustain an injury while cleaning his boat slipped hitting his right leg to the wooden stairs of the dock the patient did mention that he did have a abrasion 2 to the right leg area over the next 2 days the right leg become more swollen and red and painful for which the patient was evaluated at urgent care patient did received a dose of Rocephin in each of his gluteal area and he was started on oral Keflex 500 mg every 6 hours pending the patient did have right leg Doppler that was negative for DVT or compartment syndrome subsequent the [facility] with the patient did have x-rays which were negative for any fracture the patient also have an MRI of the right leg done with report showing hematoma and edema of the right leg but no fracture with worsening swelling and redness and pain to the right area pain described to be throbbing almost 7-8/10 and no radiation worse on walking , pt denies any high-grade fever patient to presented to the emergency room with the patient has been evaluated by the ER physician the patient was started on vancomycin and admitted hospital and ID was consulted for further recommendation regarding antibiotic therapy. As of this morning the patient is afebrile he did mention that the redness is slightly improved compared to yesterday after the patient was started on vancomycin patient denies any chest pain shortness of breath or cough no abdominal pain and there is no significant drainage from those 2 laceration that the patient has Review of Systems Review of system Constitutional: The patient denies any fever or rigors or chills, the patient does complain of weakness. Eyes: No complaint ENT: No complaint Respiratory: No complaint Cardiovascular: No complaint Gastrointestinal: No complaint Genitourinary: No complaint Musculoskeletal: As per history of present illness Integumentary: As per history of present illness Endocrine : No complaint Psycologial : No complaint Neurological: No complaint. Past Medical History Past Medical History: No Reported History History of Any Multi-Drug Resistant Organisms: None Reported Past Surgical History: Appendectomy, Joint Replacement, Orthopedic Surgery Additional Past Surgical History / Comment(s): bilat knee x 6, c5-6 fusion 1999 , right rotator cup, deviated septum rx Past Anesthesia/Blood Transfusion Reactions: Family Hisory of Malignant Hyperthermia Past Psychological History: No Psychological Hx Reported Smoking Status: Former smoker Past Alcohol Use History: Occasional Past Drug Use History: None Reported - Past Family History Mother Family Medical History: No Reported History Father Family Medical History: No Reported History Medications and Allergies Home Medications Medication Instructions Recorded Confirmed Type Omeprazole [PriLOSEC] 20 mg PO BID 06/30/15 03/27/17 History Testosterone [Androgel 1.62% Gel 2 applic TOPICAL DAILY 03/22/17 03/27/17 History Pump] Ibuprofen [Motrin] 800 mg PO TID PRN 03/27/17 03/27/17 History Allergies Allergy/AdvReac Type Severity Reaction Status Date / Time Iodinated Contrast Media - Allergy Anaphylaxis Verified 03/27/17 21:57 Oral and [Iodinated Contrast Media - IV Dye] General Anesthesia AdvReac Severe Malignant Uncoded 03/27/17 19:37 Hyperthermia Physical Exam Vitals: Vital Signs Temp Pulse Pulse Resp BP BP Pulse Ox 03/28/17 08:00 68 16 03/28/17 07:00 97.5 F L 60 18 100/63 99 03/28/17 00:00 68 16 03/27/17 23:00 97.7 F 68 16 141/79 96 03/27/17 22:01 63 16 141/74 98 03/27/17 21:26 97.9 F 71 18 140/62 98 03/27/17 19:30 97.8 F 85 18 138/72 97 Intake and Output 03/27/17 03/28/17 03/28/17 22:59 06:59 14:59 Intake Total 1240 Balance 1240 Intake: Intake, IV Titration 1000 Amount Vancomycin 2,000 mg In 1000 Sodium Chloride 0.9% 500 ml @ 167 mls/hr IVPB Q8H [facility] Rx#:[id number] Oral 240 Other: # Voids 1 Weight 124.738 kg General: The patient is awake and alert, in no distress. Skin: no rashes or lesions are noted no masses palpable. Eye: Pupils are equal, round and reactive to light, there is normal conjunctiva bilaterally. Ears, nose, mouth and throat: There are moist mucous membranes and no oral lesions. Neck: The neck is supple, there is no thyromegaly. Cardiovascular: S1-S2 regular rate and rhythm. No murmur. Respiratory: Unlabored breathing clear to auscultation bilaterally Gastrointestinal: Soft, non-distended, non-tender abdomen without masses or organomegaly noted. Musculoskeletal: Right leg with significant swelling and redness with 2 wounds/ laceration with overlying dry scab slightly warm to touch and tender no drainage was noticed. Psychiatric: Patient is awake and alert and oriented 3, appropriate mood & affect, normal judgment. Results CBC & Chem 7: 03/27/17 20:15 03/28/17 07:11 Labs: Abnormal Lab Results - Last 24 Hours (Table) 03/27/17 Range/Units 19:55 BUN 21 H (9-20) mg/dL C-Reactive Protein 14.5 H (<10.0) mg/L Microbiology - Last 24 Hours (Table) 03/27/17 20:50 Gram Stain - Preliminary Leg - Right Wound Culture - Preliminary 03/27/17 20:50 Anaerobic Culture - Preliminary Leg - Right Assessment and Plan (1) Cellulitis of right leg Status: Acute (2) Failure of outpatient treatment Status: Acute Plan: 1-patient with right leg cellulitis sustained as a result of abrasion to the right leg from the wooden deck failing outpatient Rocephin and Keflex therapy with some improvement on the vancomycin likely pointing towards an MRSA infection 2-patient did have an outpatient MRI that was negative for any fracture or compartment syndrome or abscess 3-patient will continue vancomycin pharmacy to dose with target trough of 15 4-we will follow-up on his clinical condition and culture to further adjust his medication if needed thank you for this consultation will follow this patient along with you Time with Patient: Greater than 30
[2017-03-29] MEDS ORDERED: VANCOMYCIN TROUGH DUE 1 EACH MISC MISCELLANE ONE (11:00)
[2017-03-29 11:53] LABS: Basophils % (A) 0 %; CH 33.7; CHCM 35.3; Eosinophils # (A) 0.2 k/uL (0-0.7); Eosinophils % (A) 3 %; HCT 45.2 % (39.0-53.0); HDW 2.89; HGB 15.6 gm/dL (13.0-17.5); Luc # (Auto) 0.22; Luc % (Auto) 3; Lymphocytes # (A) 1.3 k/uL (1.0-4.8); Lymphocytes % (A) 18 %; MCH 33.1 pg (25.0-35.0); MCHC 34.6 g/dL (31.0-37.0); MCV 95.8 fL (80.0-100.0); Mean Platelet Volume 6.5; Monocytes # (A) 0.6 k/uL (0-1.0); Monocytes % (A) 8 %; Neutrophils % (A) 68 %; RBC 4.71 m/uL (4.30-5.90); RDW 12.8 % (11.5-15.5); WBC 7.4 k/uL (3.8-10.6); WBC (Perox) 7.62
--- NOTE | 2017-03-29 12:05 | P.PN ---
<Maria De Jesus Prabhakar - Last Filed: 03/29/17 12:04> Subjective Principal diagnosis: Cellulitis, Hematoma This is a well-appearing 51 year old male admitted for cellulitis of the right lower extremity. Patient continues to report improvement in pain and erythema of the right lower extremity. Patient states he is able to bear weight to the right lower extremity with some pain. Patient denies any numbness, weakness, tingling, fever/chills. Patient has no new complaints today. Objective - Vital Signs Vital signs: Vital Signs Temp 97.2 F L 03/29/17 07:00 Pulse 72 03/29/17 07:33 Resp 16 03/29/17 07:33 BP 115/66 03/29/17 07:00 Pulse Ox 96 03/29/17 07:00 Intake & Output 03/28/17 03/29/17 03/29/17 18:59 06:59 18:59 Intake Total 480 500 440 Balance 480 500 440 Weight 124.738 kg Intake: Intake, IV Titration 500 Amount Vancomycin 2,000 mg In 500 Sodium Chloride 0.9% 500 ml @ 167 mls/hr IVPB Q8H [facility] Rx#:[id number] Oral 480 440 Other: # Voids 4 1 - Exam Patient is in no acute distress and is alert and oriented x3. There is surrounding erythema and swelling to the wounds of the right lower extremity. This has not increased. There is still generalized tenderness to palpation of the right lower extremity. Calf is soft. Neurovascular status intact. Patient has full foot and ankle motion. - Labs CBC & Chem 7: 03/29/17 11:06 03/28/17 07:11 Labs: Microbiology - Last 24 Hours (Table) 03/27/17 20:50 Gram Stain - Preliminary Leg - Right Wound Culture - Preliminary Assessment and Plan (1) Hematoma Status: Acute (2) Right leg pain Status: Acute (3) Cellulitis Status: Acute (4) Leg edema, right Status: Acute Plan: #1. Continue pain control #2. Continue IV antibiotics per infectious disease #3. Continue rest, ice, elevation of right lower extremity #4. Will follow the patient closely. <Juwan Verdugo - Last Filed: 03/29/17 15:04> Objective - Vital Signs Vital signs: Vital Signs Temp 97.2 F L 03/29/17 07:00 Pulse 72 03/29/17 07:33 Resp 16 03/29/17 07:33 BP 115/66 03/29/17 07:00 Pulse Ox 96 03/29/17 07:00 Intake & Output 03/28/17 03/29/17 03/29/17 18:59 06:59 18:59 Intake Total 480 500 440 Balance 480 500 440 Weight 124.738 kg Intake: Intake, IV Titration 500 Amount Vancomycin 2,000 mg In 500 Sodium Chloride 0.9% 500 ml @ 167 mls/hr IVPB Q8H [facility] Rx#:[id number] Oral 480 440 Other: # Voids 4 1 - Labs CBC & Chem 7: 03/29/17 11:06 03/29/17 11:06 Labs: Abnormal Lab Results - Last 24 Hours (Table) 03/29/17 Range/Units 11:06 Carbon Dioxide 31 H (22-30) mmol/L Microbiology - Last 24 Hours (Table) 03/27/17 20:50 Gram Stain - Preliminary Leg - Right Wound Culture - Preliminary Assessment and Plan Plan: Patient is seen and examined at bedside today. He is well known to me. He feels that his leg is improving. His swelling is decreasing and the erythema is improving as well. He denies any fevers chills night sweats. He has been mobile and is doing well with his mobility. He has not lost strength in his leg. On exam he has sustained dorsal flexion bladder flexion and EHL. Casting thighs soft nontender. Compartments soft. The abrasions at his anterior tibia are improving appropriately but the erythema is still present inferiorly. It seems to be improving and it is not as irritated in appearance. It seems be settling and proceeding. His antibiotics are still running with IV vancomycin as per Dr. Salter. Assessment and plan Status post significant soft tissue injury status post fall. Cellulitis right lower extremity, acute and improving The patient has some soft tissue injuries and has developed cellulitis at his right lower leg. He does not appear to have any compartment issues. He still needs to continue his antibiotics. He was on oral antibiotics as an outpatient but was feeling oral antibiotic treatment and seems to be improving well with IV antibiotic treatment. We will continue advance as per Dr. Salter. Hopefully he'll be able to convert oral medications and be able to be discharged home tomorrow. He may weight-bear as tolerated but should essentially rest and keep his leg elevated as much as possible.
[2017-03-29 12:20] LABS: Anion Gap 8 mmol/L; Blood Urea Nitrogen 17 mg/dL (9-20); Calcium 9.2 mg/dL (8.4-10.2); Carbon Dioxide 31 mmol/L (22-30); Chloride 102 mmol/L (98-107); Glucose 85 mg/dL (74-99); Non-African American GFR(MDRD) >60 (>60 ml/min/1.73 sqM); Potassium 4.2 mmol/L (3.5-5.1); Sodium 141 mmol/L (137-145)
--- NOTE | 2017-03-29 15:46 | P.PN ---
Subjective Principal diagnosis: Right lower extremity cellulitis failing outpatient oral Keflex Patient is afebrile this morning, he is breathing comfortably denies significant chest pain shortness of breath or cough pain swelling redness to the right leg has improved there is no skin breakdown is no drainage, patient has been complaining of did not get any sleep last night and wanted to be checked out Objective - Vital Signs Vital signs: Vital Signs Temp 97.2 F L 03/29/17 07:00 Pulse 72 03/29/17 07:33 Resp 16 03/29/17 07:33 BP 115/66 03/29/17 07:00 Pulse Ox 96 03/29/17 07:00 Intake & Output 03/28/17 03/29/17 03/29/17 18:59 06:59 18:59 Intake Total 480 500 440 Balance 480 500 440 Weight 124.738 kg Intake: Intake, IV Titration 500 Amount Vancomycin 2,000 mg In 500 Sodium Chloride 0.9% 500 ml @ 167 mls/hr IVPB Q8H [facility] Rx#:[id number] Oral 480 440 Other: # Voids 4 1 - Exam GENERAL DESCRIPTION:[ Patient is awake and alert in no distress] HEENT: [Oral mucosa is dry and no pharyngeal erythema] EYES : [No pallor or scleral icterus] RESPIRATORY SYSTEM: [Unlabored breathing clear to auscultation] CARDIA VASCULAR SYSTEM: [S1-S2 regular rate and rhythm no murmur] GI: [Abdominal soft there's no tenderness no organomegaly] EXTREMITIES: [Right leg swelling redness has improved no skin breakdown or drainage] - Labs CBC & Chem 7: 03/29/17 11:06 03/29/17 11:06 Labs: Microbiology - Last 24 Hours (Table) 03/27/17 20:50 Gram Stain - Preliminary Leg - Right Wound Culture - Preliminary Assessment and Plan (1) Cellulitis of right leg Status: Acute (2) Failure of outpatient treatment Status: Acute Plan: 1-patient with right leg cellulitis sustained as a result of abrasion to the right leg from the wooden deck failing outpatient Rocephin and Keflex therapy with some improvement on the vancomycin likely pointing towards an MRSA infection, patient has been advised to stay in the hospital for at least another 24 hour as he still has significant cellulitis of the leg and risk of failure of oral antibiotic if by tomorrow the patient did have overall improvement he may be able to go home on oral Bactrim DS one twice a day for another 2 weeks
--- NOTE | 2017-03-29 19:31 | P.PN ---
Subjective Date of service 03/29/2017. Progress note being dictated for Dr. Ann. Interval history: This a 51-year-old gentleman admitted with acute cellulitis of the right leg secondary to recent trauma, failure of outpatient treatment and multiple other medical issues. Maintained on IV antibiotics as per infectious disease. Afebrile. Pain controlled. Denies chest pain, palpitations or increasing shortness of breath. Objective - Vital Signs Vital signs: Vital Signs Temp 97.9 F 03/29/17 15:00 Pulse 72 03/29/17 16:00 Resp 16 03/29/17 16:00 BP 132/69 03/29/17 15:00 Pulse Ox 96 03/29/17 15:00 Intake & Output 03/29/17 03/29/17 03/30/17 06:59 18:59 06:59 Intake Total 500 1380 Balance 500 1380 Weight 124.738 kg Intake: Intake, IV Titration 500 500 Amount Vancomycin 2,000 mg In 500 500 Sodium Chloride 0.9% 500 ml @ 167 mls/hr IVPB Q8H [facility] Rx#:[id number] Oral 880 Other: # Voids 1 1 - Exam PHYSICAL EXAM: VITAL SIGNS: [As above] GENERAL: [Sitting up in bed, no acute distress] HEENT: [Pupils equal conjunctiva normal.] NECK: [Supple, no JVD] RESPIRATORY EFFORT:[ Normal] LUNGS: [Clear to auscultation, no wheezes rhonchi or crackles] CARDIOVASCULAR[ regular S1 and S2] GI: [Abdomen soft, nontender, positive bowel sounds.] PSYCH: [Alert and oriented -3, mood and affect normal.] SKIN: Right lower leg with significant cellulitis,erythema, dry scabs NEURO: No focal deficits Microbiology 03/27/17 20:50 Leg - Right Gram Stain - Preliminary 03/27/17 20:50 Leg - Right Wound Culture - Preliminary 03/27/17 20:50 Leg - Right Anaerobic Culture - Preliminary - Labs CBC & Chem 7: 03/29/17 11:06 03/29/17 11:06 Labs: Abnormal Lab Results - Last 24 Hours (Table) 03/29/17 Range/Units 11:06 Carbon Dioxide 31 H (22-30) mmol/L Microbiology - Last 24 Hours (Table) 03/27/17 20:50 Gram Stain - Preliminary Leg - Right Wound Culture - Preliminary Assessment and Plan Plan: 1. Acute cellulitis of the right leg secondary to recent trauma with failure of outpatient treatment. 2. [ Degenerative joint disease]. Plan: Continue on current medication regime ,monitoring and symptomatic treatment. Continue on vancomycin for another 24 hours as recommended per infectious disease. Cultures pending. Further recommendations to follow. The impression and plan of care has been dictated as directed. : I performed a H&P examination of this patient and discussed the same with the dictator. I agree with the dictator's note. Any additional findings/opinions/ etc. will be noted.
[2017-03-30] MEDS: VANCOMYCIN 1,750 MG in SODIUM CHLORIDE 0.9% 250 ML IVPB SCH ×3 (00:26→16:51)
[2017-03-30 08:00] LABS: Basophils % (A) 0 %; CH 33.7; CHCM 36.1; Eosinophils # (A) 0.3 k/uL (0-0.7); Eosinophils % (A) 4 %; HCT 43.3 % (39.0-53.0); HDW 2.92; HGB 15.4 gm/dL (13.0-17.5); Luc # (Auto) 0.25; Luc % (Auto) 3; Lymphocytes # (A) 1.7 k/uL (1.0-4.8); Lymphocytes % (A) 22 %; MCH 33.4 pg (25.0-35.0); MCHC 35.6 g/dL (31.0-37.0); MCV 93.8 fL (80.0-100.0); Monocytes # (A) 0.6 k/uL (0-1.0); Monocytes % (A) 8 %; Neutrophils # (A) 4.8 k/uL (1.3-7.7); Neutrophils % (A) 63 %; RBC 4.62 m/uL (4.30-5.90); RDW 13.1 % (11.5-15.5); WBC 7.6 k/uL (3.8-10.6); WBC (Perox) 7.53
[2017-03-30 08:19] LABS: Anion Gap 8 mmol/L; Blood Urea Nitrogen 19 mg/dL (9-20); Calcium 8.9 mg/dL (8.4-10.2); Carbon Dioxide 28 mmol/L (22-30); Chloride 104 mmol/L (98-107); Glucose 92 mg/dL (74-99); Non-African American GFR(MDRD) >60 (>60 ml/min/1.73 sqM); Potassium 4.2 mmol/L (3.5-5.1); Sodium 140 mmol/L (137-145)
[2017-03-30] MEDS: PANTOPRAZOLE 40 MG TABLET PO SCH ×2 (08:21→16:51)
[2017-03-30] MEDS: HEPARIN SODIUM,PORCINE 5,000 UNIT/ML 1 ML VIAL SQ SCH ×2 (08:21→20:40)
--- NOTE | 2017-03-30 08:55 | P.PN ---
<Maria De Jesus Prabhakar Estela - Last Filed: 03/30/17 08:49> Subjective Principal diagnosis: Cellulitis, Hematoma This is a well-appearing 51 year old male admitted for cellulitis of the right lower extremity. Patient states overnight his pain became worse and he has noticed some mild increasing erythema. Patient states he also has noticed some increase in right knee and ankle pain. Patient states he has been getting up to walk several times throughout the day. Patient denies any numbness, weakness , tingling, fever/chills. Objective - Vital Signs Vital signs: Vital Signs Temp 98.0 F 03/30/17 07:00 Pulse 58 L 03/30/17 07:00 Resp 16 03/30/17 07:00 BP 110/69 03/30/17 07:00 Pulse Ox 96 03/30/17 07:00 Intake & Output 03/29/17 03/30/17 03/30/17 18:59 06:59 18:59 Intake Total 1380 250 Balance 1380 250 Weight 124.738 kg Intake: IV 250 Vancomycin 1,750 mg In 250 Sodium Chloride 0.9% 250 ml @ 125 mls/hr IVPB Q8HR MONICA Rx#:[id number] Intake, IV Titration 500 Amount Vancomycin 2,000 mg In 500 Sodium Chloride 0.9% 500 ml @ 167 mls/hr IVPB Q8H MONICA Rx#:[id number] Oral 880 Other: # Voids 1 2 - Exam Patient is in no acute distress and is alert and oriented x3. There is surrounding erythema and swelling to the wounds of the right lower extremity. Erythema does not extend beyond the original borders drawn on the patient's skin. There is still generalized tenderness to palpation of the right lower extremity especially at the right knee, right ankle and around the patient's leg wounds. Patient is able to flex the right knee but has limited range of motion due to pain in the lower leg. Patient has full foot and ankle motion with mild pain. Calf is soft and nontender. Sensation intact. Dorsalis pedis pulses 2+. - Labs CBC & Chem 7: 03/30/17 07:40 03/30/17 07:40 Labs: Abnormal Lab Results - Last 24 Hours (Table) 03/29/17 Range/Units 11:06 Carbon Dioxide 31 H (22-30) mmol/L Microbiology - Last 24 Hours (Table) 03/27/17 20:50 Gram Stain - Final Leg - Right Wound Culture - Final Assessment and Plan (1) Hematoma Status: Acute (2) Right leg pain Status: Acute (3) Cellulitis Status: Acute (4) Leg edema, right Status: Acute Plan: #1. Continue pain control #2. Continue antibiotics per infectious disease #3. Continue rest, ice, elevation of right lower extremity #4. Will follow the patient closely. Patient is to follow up in one week in the office after discharge. <Juwan Verdugo - Last Filed: 03/30/17 09:19> Objective - Vital Signs Vital signs: Vital Signs Temp 98.0 F 03/30/17 07:00 Pulse 58 L 03/30/17 07:00 Resp 16 03/30/17 07:00 BP 110/69 03/30/17 07:00 Pulse Ox 96 03/30/17 07:00 Intake & Output 03/29/17 03/30/17 03/30/17 18:59 06:59 18:59 Intake Total 1380 250 Balance 1380 250 Weight 124.738 kg Intake: IV 250 Vancomycin 1,750 mg In 250 Sodium Chloride 0.9% 250 ml @ 125 mls/hr IVPB Q8HR MONICA Rx#:[id number] Intake, IV Titration 500 Amount Vancomycin 2,000 mg In 500 Sodium Chloride 0.9% 500 ml @ 167 mls/hr IVPB Q8H MONICA Rx#:[id number] Oral 880 Other: # Voids 1 2 - Labs CBC & Chem 7: 03/30/17 07:40 03/30/17 07:40 Labs: Abnormal Lab Results - Last 24 Hours (Table) 03/29/17 Range/Units 11:06 Carbon Dioxide 31 H (22-30) mmol/L Microbiology - Last 24 Hours (Table) 03/27/17 20:50 Gram Stain - Final Leg - Right Wound Culture - Final Assessment and Plan Plan: I was able to see the patient this morning is well. He says that overnight it seemed to get worse and but it seems to be resending again this morning. We will await to see what infectious disease with Dr. Salter determines is the best course in terms of continuing IV antibiotics or converting him over to orals. From an orthopedic standpoint it'll be okay for him to be discharged when he has his antibiotic regimen established.
[2017-03-30] MEDS ORDERED: RX INFO: IV CONTRAST WAS GIVEN 1 EACH MISC MISCELLANE PRN (09:27)
--- NOTE | 2017-03-30 11:40 | CT ---
EXAMINATION TYPE: CT lower extremity RT wo con DATE OF EXAM: 03/30/2017 COMPARISON: Radiographs 03/27/2017 HISTORY: 51-year-old male Rt lower leg cellulitis. Patient with fall and redness along the anterior a spect of the upper and mid leg. TECHNIQUE: Contiguous axial scanning of the right tibia/fibula without IV contrast. Coronal and sagit rika reconstructions performed. CT DLP: 815.5 mGycm Automated exposure control for dose reduction was used. FINDINGS: No acute fracture. No periostitis or osteolysis. Mild diffuse soft tissue swelling of the leg especially anteriorly. Along the upper leg located anteromedially, there are soft tissue density nodules located within the subcutaneous fat measuring 1.8, 1.3, and 0.8 cm. The more patchy areas of soft tissue density is also present just adjacent. Confluent edema tracking along the superficial fascia at this level. No obvio us low-density well formed fluid collection to suggest abscess. There is no edema seen along the deeper fascial planes or soft tissue gas. IMPRESSION: 1. MULTIPLE SOFT TISSUE DENSITY NODULES MEASURING UP TO 1.8 CM WITHIN THE SUBCUTANEOUS FAT OF THE ANT EROMEDIAL UPPER LEG WITH SURROUNDING CONFLUENT SOFT TISSUE EDEMA. FINDINGS SUSPECTED TO REPRESENT COM BINATION OF CONTUSIONS AND SUBCUTANEOUS HEMATOMAS. THESE NODULES CAN BE FOLLOWED CLINICALLY TO ENSURE GRADUAL INVOLUTION. IF ANY GROWTH IS NOTED, THE AREA CAN BE REIMAGED. 2. ADDITIONAL EXTENSIVE SOFT TISSUE SWELLING OF THE SUPERFICIAL TISSUES OF THE ANTERIOR LEG. NONSPECI FIC EDEMA THAT COULD REPRESENT CELLULITIS. 3. NO SUSPICIOUS CHANGES WITHIN THE DEEPER SOFT TISSUES OR THE UNDERLYING BONE.
--- NOTE | 2017-03-30 13:04 | P.PN ---
Subjective Date of service 03/30/2017. Progress note being dictated for Dr. Ann. Interval history: This a 51-year-old gentleman admitted with acute cellulitis of the right leg secondary to recent trauma, failure of outpatient treatment and multiple other medical issues. Maintained on IV vancomycin as per infectious disease. Patient reports during the night developed significantly increased right leg pain, specifically in the ankle and knee as well as increased edema. Afebrile. Denies chest pain, palpitations or increasing shortness of breath Objective - Vital Signs Vital signs: Vital Signs Temp 98.0 F 03/30/17 07:00 Pulse 58 L 03/30/17 07:00 Resp 16 03/30/17 07:00 BP 110/69 03/30/17 07:00 Pulse Ox 96 03/30/17 07:00 Intake & Output 03/29/17 03/30/17 03/30/17 18:59 06:59 18:59 Intake Total 1380 250 Balance 1380 250 Weight 124.738 kg Intake: IV 250 Vancomycin 1,750 mg In 250 Sodium Chloride 0.9% 250 ml @ 125 mls/hr IVPB Q8HR [facility] Rx#:[id number] Intake, IV Titration 500 Amount Vancomycin 2,000 mg In 500 Sodium Chloride 0.9% 500 ml @ 167 mls/hr IVPB Q8H [facility] Rx#:[id number] Oral 880 Other: # Voids 1 2 - Exam PHYSICAL EXAM: VITAL SIGNS: [As above] GENERAL: [Sitting up in bed, tired appearing, no acute distress HEENT: [Pupils equal conjunctiva normal.] NECK: [Supple, no JVD] RESPIRATORY EFFORT:[ Normal] LUNGS: [Clear to auscultation, no wheezes rhonchi or crackles] CARDIOVASCULAR[ regular S1 and S2] GI: [Abdomen soft, nontender, positive bowel sounds.] PSYCH: [Alert and oriented -3, mood and affect normal.] SKIN: Right lower leg with significant cellulitis,erythema, dry scabs, increased tenderness NEURO: No focal deficits 0 Microbiology 03/27/17 20:50 Leg - Right Gram Stain - Final 03/27/17 20:50 Leg - Right Wound Culture - Final 03/27/17 20:50 Leg - Right Anaerobic Culture - Preliminary - Labs CBC & Chem 7: 03/30/17 07:40 03/30/17 07:40 Labs: Microbiology - Last 24 Hours (Table) 03/27/17 20:50 Gram Stain - Final Leg - Right Wound Culture - Final Assessment and Plan Plan: 1. Acute cellulitis of the right leg secondary to recent trauma with failure of outpatient treatment. 2. [ Degenerative joint disease]. 3. Acute hematoma Plan: Continue on current medication regime ,monitoring and symptomatic treatment. CT ordered. Follow cultures closely, antibiotics as per infectious disease. Further recommendations to follow. The impression and plan of care has been dictated as directed. : I performed a H&P examination of this patient and discussed the same with the dictator. I agree with the dictator's note. Any additional findings/opinions/ etc. will be noted.
--- NOTE | 2017-03-30 23:18 | P.PN ---
Subjective Principal diagnosis: Right lower extremity cellulitis failing outpatient oral Keflex Patient is afebrile this morning, he is breathing comfortably denies significant chest pain shortness of breath or cough pain , pt was c/o more swelling and redness to right leg for which a CT was done , there is no skin breakdown is no drainage, Objective - Vital Signs Vital signs: Vital Signs Temp 98.2 F 03/30/17 22:29 Pulse 69 03/30/17 22:29 Resp 16 03/30/17 22:29 BP 120/66 03/30/17 22:29 Pulse Ox 96 03/30/17 22:29 Intake & Output 03/30/17 03/30/17 03/31/17 06:59 18:59 06:59 Intake Total 250 250 850 Balance 250 250 850 Intake: IV 250 250 250 Vancomycin 1,750 mg In 250 250 250 Sodium Chloride 0.9% 250 ml @ 125 mls/hr IVPB Q8HR [facility] Rx#:[id number] Oral 600 Other: # Voids 2 3 2 - Exam GENERAL DESCRIPTION:[ Patient is awake and alert in no distress] HEENT: [Oral mucosa is dry and no pharyngeal erythema] EYES : [No pallor or scleral icterus] RESPIRATORY SYSTEM: [Unlabored breathing clear to auscultation] CARDIA VASCULAR SYSTEM: [S1-S2 regular rate and rhythm no murmur] GI: [Abdominal soft there's no tenderness no organomegaly] EXTREMITIES: [Right leg swelling redness has improved from yesterday with no skin breakdown or drainage] - Labs CBC & Chem 7: 03/30/17 07:40 03/30/17 07:40 Labs: Microbiology - Last 24 Hours (Table) 03/27/17 20:50 Gram Stain - Final Leg - Right Wound Culture - Final Assessment and Plan (1) Cellulitis of right leg Status: Acute (2) Failure of outpatient treatment Status: Acute Plan: 1-patient with right leg cellulitis sustained as a result of abrasion to the right leg from the wooden deck failing outpatient Rocephin and Keflex therapy , pt seems to have clinical improvment and i didnot see any worsening clinically , pt was reassued , will continue with vancomycin , apply RICHARDSON wrap and if by tomorrow the patient continue to improve , he may be able to go home on oral Bactrim DS one twice a day for another 2 weeks Time with Patient: Less than 30
[2017-03-30] MEDS: oxyCODONE-APAP 5-325MG 1 EACH TAB PO PRN (23:52)
[2017-03-31] MEDS: VANCOMYCIN 1,750 MG in SODIUM CHLORIDE 0.9% 250 ML IVPB SCH (00:43)
[2017-03-31] MEDS ORDERED: VANCOMYCIN TROUGH DUE 1 EACH MISC MISCELLANE ONE (07:00)
[2017-03-31 07:35] LABS: Basophils % (A) 1 %; CH 33.8; CHCM 35.8; Eosinophils # (A) 0.3 k/uL (0-0.7); Eosinophils % (A) 3 %; HCT 43.7 % (39.0-53.0); HDW 2.85; HGB 15.5 gm/dL (13.0-17.5); Luc # (Auto) 0.26; Luc % (Auto) 3; Lymphocytes # (A) 2.1 k/uL (1.0-4.8); Lymphocytes % (A) 23 %; MCH 33.6 pg (25.0-35.0); MCHC 35.4 g/dL (31.0-37.0); MCV 94.8 fL (80.0-100.0); Monocytes # (A) 0.7 k/uL (0-1.0); Monocytes % (A) 8 %; Neutrophils # (A) 5.8 k/uL (1.3-7.7); Neutrophils % (A) 63 %; RDW 13.1 % (11.5-15.5); WBC 9.2 k/uL (3.8-10.6); WBC (Perox) 8.66
[2017-03-31 07:45] VITALS: BP 107/69; PULSE 65; RESP 18; TEMP 97.6
[2017-03-31 07:49] LABS: Anion Gap 6 mmol/L; Blood Urea Nitrogen 18 mg/dL (9-20); Calcium 8.9 mg/dL (8.4-10.2); Carbon Dioxide 29 mmol/L (22-30); Chloride 105 mmol/L (98-107); Glucose 101 mg/dL (74-99); Non-African American GFR(MDRD) >60 (>60 ml/min/1.73 sqM); Potassium 4.3 mmol/L (3.5-5.1); Sodium 140 mmol/L (137-145)
[2017-03-31] MEDS: PANTOPRAZOLE 40 MG TABLET PO SCH (07:56)
[2017-03-31] MEDS: HEPARIN SODIUM,PORCINE 5,000 UNIT/ML 1 ML VIAL SQ SCH (07:57)
--- NOTE | 2017-03-31 08:48 | P.PN ---
Subjective Principal diagnosis: Cellulitis, Hematoma This is a well-appearing 51 year old male admitted for cellulitis of the right lower extremity. Patient reports improvement in symptoms today. 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 Patient states he is ready for discharge today. Patient denies any numbness, weakness, tingling, fever/chills. Objective - Vital Signs Vital signs: Vital Signs Temp 97.6 F 03/31/17 07:00 Pulse 65 03/31/17 07:00 Resp 18 03/31/17 07:00 BP 107/69 03/31/17 07:00 Pulse Ox 97 03/31/17 07:00 Intake & Output 03/30/17 03/31/17 03/31/17 18:59 06:59 18:59 Intake Total 250 1390 Balance 250 1390 Intake: IV 250 250 Vancomycin 1,750 mg In 250 250 Sodium Chloride 0.9% 250 ml @ 125 mls/hr IVPB Q8HR [facility] Rx#:[id number] Oral 1140 Other: # Voids 3 3 - Exam Patient is in no acute distress and is alert and oriented x3. There is surrounding erythema and swelling to the wounds of the right lower extremity that appears improved since yesterday. There is continued tenderness to palpation around the anteromedial lower right leg. Patient is able to flex at the right knee with some mild pain. Patient has full extension of the knee. Patient has full foot and ankle motion. Calf is soft and nontender. Sensation intact. Circulatory status intact. - Labs CBC & Chem 7: 03/31/17 07:00 03/31/17 07:00 Labs: Abnormal Lab Results - Last 24 Hours (Table) 03/31/17 Range/Units 07:00 Glucose 101 H (74-99) mg/dL Assessment and Plan (1) Hematoma Status: Acute (2) Right leg pain Status: Acute (3) Cellulitis Status: Acute (4) Leg edema, right Status: Acute Plan: #1. Continue pain control #2. Continue antibiotics per infectious disease #3. Continue rest, ice, elevation and jillian wrap of right lower extremity #4. Patient is to follow up in one week in the office after discharge.
[2017-03-31] MEDS: oxyCODONE-APAP 5-325MG 1 EACH TAB PO PRN (11:32)
[2017-03-31] MEDS ORDERED: VANCOMYCIN 2,000 MG in SODIUM CHLORIDE 0.9% 500 ML IVPB SCH (12:00)
--- NOTE | 2017-03-31 16:54 | P.DS ---
Providers Date of admission: 03/27/17 22:04 Expected date of discharge: 03/31/17 Attending physician: Marcy Ann Consults: 03/27/17 22:01 Consult Physician Routine Consulting Provider: Juwan Verdugo Consult Reason/Comments: possible stress fracture Do you want consulting provider notified?: Yes 03/28/17 11:20 Consult Physician Routine Consulting Provider: Tonia Salter Consult Reason/Comments: cellulitis Do you want consulting provider notified?: Yes Primary care physician: Jewell August Hospital Course: Final Diagnoses: 1. Acute cellulitis of the right leg secondary to recent trauma with failure of outpatient treatment. 2. [ Degenerative joint disease]. 3. Acute hematoma Hospital course: This is a 51-year-old gentleman admitted with acute cellulitis of the right leg secondary to recent trauma, failure of outpatient treatment and multiple other medical issues. Evaluated by infectious disease. Maintained on IV vancomycin as per infectious disease. Gram stain and aerobic cultures no organisms seen at 48 hours. Preliminary anaerobic pending .Significant clinical improvement. Patient has been cleared by infectious disease for discharge. Recent is being discharged home in a stable condition with guarded prognosis. Microbiology 03/27/17 20:50 Leg - Right Gram Stain - Final 03/27/17 20:50 Leg - Right Wound Culture - Final 03/27/17 20:50 Leg - Right Anaerobic Culture - Preliminary The impression and plan of care has been dictated as directed as a scribe. : I performed a H&P examination of this patient and discussed the same with the dictator. I agree with the dictator's note. Any additional findings/opinions/ etc. will be noted. Patient Condition at Discharge: Stable Plan - Discharge Summary New Discharge Prescriptions: New Sulfamethox-Tmp 800-160Mg [Bactrim DS 800-160 mg] 1 tab PO Q12HR #28 tab Ibuprofen [Advil] 200 mg PO TID PRN tab PRN Reason: Inflammation/Pain oxyCODONE-APAP 5-325MG [Percocet 5-325 mg] 1 each PO Q4HR PRN #30 tab PRN Reason: Pain Continue Omeprazole [PriLOSEC] 20 mg PO BID Discontinued Cephalexin [Keflex] 500 mg PO Q6HR #28 cap Ibuprofen [Motrin] 800 mg PO TID PRN PRN Reason: Inflammation/Pain No Action Testosterone [Androgel 1.62% Gel Pump] 2 applic TOPICAL DAILY Discharge Medication List Omeprazole [PriLOSEC] 20 mg PO BID 06/30/15 [History] Testosterone [Androgel 1.62% Gel Pump] 2 applic TOPICAL DAILY 03/22/17 [History] Ibuprofen [Advil] 200 mg PO TID PRN tab 03/31/17 [Rx] Sulfamethox-Tmp 800-160Mg [Bactrim DS 800-160 mg] 1 tab PO Q12HR #28 tab [Rx] oxyCODONE-APAP 5-325MG [Percocet 5-325 mg] 1 each PO Q4HR PRN #30 tab 03/31/17 [ Rx] Follow up Appointment(s)/Referral(s): Juwan Verdugo DO [Doctor of Osteopathic Medicine] - 04/18/17 8:45 am () Jewell August MD [Primary Care Provider] - 3 Days (Patient to call Dr. August's office Monday morning to schedule follow up appointment. The office is closed at time of discharge. ) Tonia Salter MD [STAFF PHYSICIAN] - 1 Week (April 06, 2017 at 11:15 at [facility] location) Ambulatory/Diagnostic Orders: Complete Blood Count w/diff [LAB.AMB] Time Frame: 3 Days, Location: Determined By Patient Patient Instructions/Handouts: Sulfamethoxazole/Trimethoprim (By mouth), Oxycodone/Acetaminophen (By mouth), Cellulitis (DC) Activity/Diet/Wound Care/Special Instructions: Continue rest, ice, elevation and jillian wrap to right lower extremity. 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 Discharge/Stand Alone Forms: Work/School Release / Restrict Discharge Disposition: HOME SELF-CARE
--- NOTE | 2017-04-03 20:00 | P.PN ---
Subjective Principal diagnosis: Right lower extremity cellulitis failing outpatient oral Keflex Patient is afebrile this morning, he is breathing comfortably, the pt denies significant chest pain shortness of breath or cough pain , pt swelling and redness to right leg has improved comparing to yesterday, there is no skin breakdown is no drainage, Objective - Vital Signs Vital signs: Vital Signs Temp 97.6 F 03/31/17 07:00 Pulse 65 03/31/17 08:00 Resp 18 03/31/17 08:00 BP 107/69 03/31/17 07:00 Pulse Ox 97 03/31/17 07:00 Intake & Output 03/30/17 03/31/17 03/31/17 18:59 06:59 18:59 Intake Total 250 1390 Balance 250 1390 Weight 124.738 kg Intake: IV 250 250 Vancomycin 1,750 mg In 250 250 Sodium Chloride 0.9% 250 ml @ 125 mls/hr IVPB Q8HR [facility] Rx#:[id number] Oral 1140 Other: # Voids 3 3 1 - Exam GENERAL DESCRIPTION:[ Patient is awake and alert in no distress] HEENT: [Oral mucosa is dry and no pharyngeal erythema] EYES : [No pallor or scleral icterus] RESPIRATORY SYSTEM: [Unlabored breathing clear to auscultation] CARDIA VASCULAR SYSTEM: [S1-S2 regular rate and rhythm no murmur] GI: [Abdominal soft there's no tenderness no organomegaly] EXTREMITIES: [Right leg swelling redness has improved with no skin breakdown or drainage] - Labs CBC & Chem 7: 03/31/17 07:00 03/31/17 07:00 Labs: Abnormal Lab Results - Last 24 Hours (Table) 03/31/17 Range/Units 07:00 Glucose 101 H (74-99) mg/dL Assessment and Plan (1) Cellulitis of right leg Status: Acute (2) Failure of outpatient treatment Status: Acute Plan: 1-patient with right leg cellulitis sustained as a result of abrasion to the right leg from the wooden deck failing outpatient Rocephin and Keflex therapy , pt seems to have clinical improvment with vancomycin , the pt will be able to go home on Bactrim DS one twice a day for another 2 weeks Time with Patient: Less than 30
== END 2017-03-31 14:15 | disposition home or self-care (01) | DRG 603 ==
LOC: EC 19:25 → 5MS5E 22:04
PROVIDERS: ADMIT Hospitalist; ATTEND Hospitalist
DX: L03.115 Cellulitis of right lower limb (principal); M19.90 Unspecified osteoarthritis, unspecified site; R60.0 Localized edema; S80.11XA Contusion of right lower leg, initial encounter; Z87.891 Personal history of nicotine dependence; Z98.1 Arthrodesis status; Z96.60 Presence of unspecified orthopedic joint implant; Z88.8 Allergy status to other drugs, medicaments and biological substances; Z91.041 Radiographic dye allergy status; W19.XXXA Unspecified fall, initial encounter; Y92.9 Unspecified place or not applicable
CPT/HCPCS: 36415; 80048; 80202; 85025; 85652; 86140; 87070; 87075; 87077; 87186; 87205

== ENCOUNTER → 2020-01-15 | Outpatient (CLI) | payer BC ==
--- NOTE | 2020-01-15 12:29 | XR ---
EXAMINATION TYPE: XR chest 2V DATE OF EXAM: 01/15/2020 COMPARISON: 10/02/2013 HISTORY: 54-year-old male with cough TECHNIQUE: Frontal and lateral views FINDINGS: The cardiomediastinal silhouette, aorta, and pulmonary vasculature are within normal limits. Lungs an d pleural spaces are clear. IMPRESSION: No acute cardiopulmonary process.
== END | disposition home or self-care (01) ==
LOC: RADXRYALE 11:59
PROVIDERS: ATTEND Internal Medicine
DX: R05 Cough (principal)
CPT/HCPCS: 71046

== ENCOUNTER 2021-12-02 06:46 | Day surgery (SDC) | payer BC ==
[2021-11-29 15:24] VITALS: BMI 35.6
[~2021-12-02 06:46] MED LIST: Pre Op ABX Message 1 EACH MISC MISCELLANE ONE
[2021-12-02] MEDS ORDERED: LACTATED RINGERS 1,000 ML IV SCH (06:58)
[2021-12-02] MEDS ORDERED: DEXAMETHASONE SOD PHOSPHATE 4 MG/ML 1 ML VIAL IV ONE (06:58)
[2021-12-02] MEDS ORDERED: LIDOCAINE 1% (10MG/ML) FOR IV START INTRADERMA PRN (06:58)
[2021-12-02] MEDS ORDERED: ONDANSETRON 4 MG/2 ML VIAL IVP ONE (06:58)
[2021-12-02] MEDS ORDERED: HYDROmorphone 0.5 MG/0.5 ML SYRINGE IVP PRN (07:00)
[2021-12-02] MEDS ORDERED: CHLOROPROCAINE 3% 30 MG/ML 20 ML VIAL ONE (08:04)
[2021-12-02] MEDS ORDERED: KETAMINE 10 MG/ML 20 ML VIAL ONE (08:04)
[2021-12-02] MEDS ORDERED: MIDAZOLAM 2 MG/2 ML VIAL ONE (08:04)
[2021-12-02] MEDS ORDERED: GLYCOPYRROLATE 0.2 MG/ML 2 ML VIAL ONE (08:04)
[2021-12-02] MEDS ORDERED: PROPOFOL 10 MG/ML 20 ML VIAL IV ONE (08:04)
[2021-12-02] MEDS ORDERED: BUPIVACAIN-EPI 0.25%-1:200,000 30 ML VIAL INTRAARTIC ONE (08:06)
[2021-12-02 09:09] VITALS: TEMP 97.1
[2021-12-02] MEDS ORDERED: HYDROcodone/APAP 7.5-325MG 1 EACH TAB PO PRN (10:04)
[2021-12-02 10:15] VITALS: RESP 20
[2021-12-02] MEDS ORDERED: HYDROcodone/APAP 7.5-325MG 1 EACH TAB ONE (10:17)
[2021-12-02] MEDS ORDERED: HYDROcodone/APAP 7.5-325MG 1 EACH TAB PO ONE (10:20)
--- NOTE | 2021-12-02 10:37 | OP ---
OPERATIVE REPORT DATE OF PROCEDURE: 12/02/2021 PREOPERATIVE DIAGNOSIS: Right knee medial meniscus tear. POSTOPERATIVE DIAGNOSIS: 1. Right knee medial meniscus tear. 2. Right knee thickened infrapatellar and medial shelf plica. 3. Right knee multiple intra-articular cartilaginous loose bodies. PROCEDURES PERFORMED: 1. Right knee arthroscopic partial medial meniscectomy. 2. Right knee arthroscopic lysis of adhesions. 3. Right knee arthroscopic removal of loose bodies. SURGEON: Ahsan Parks M.D. ANESTHESIA: Spinal with sedation. ESTIMATED BLOOD LOSS: Minimal. TOURNIQUET: None. DRAINS: None. COMPLICATIONS: None apparent. DISPOSITION: Post-Anesthesia Care Unit. INDICATIONS: Jorden is a 56-year-old male with left knee pain. Physical examination and MRI are consistent with tearing of the posterior horn of the medial meniscus. He also has early chondromalacia. I had a long discussion with him with regard to treatment options. At this point he does wish to proceed with operative intervention. The risks were explained to the patient, which include but are not limited to risk of infection, nerve damage, bleeding, pain, and a small risk of deep vein thrombosis which could lead to fatal pulmonary embolism. The patient understands these risks and wishes to proceed with the surgical procedure. EXAMINATION UNDER ANESTHESIA: Range of motion right full, left full. Effusion right moderate, left none. Carlene right normal with good end point, left normal with good end point. Pivot shift right grade 0, left grade 0. Posterior drawer right normal with good end point, left normal with good end point. Varus laxity right none, left none. Valgus laxity right none, left none. External rotation right normal, left normal. ARTHROSCOPIC FINDINGS: Suprapatellar pouch was normal. Medial gutter thickened medial shelf plica. Lateral gutter small cartilaginous loose bodies. Patella grade 2 change. Trochlea grade 2 change. Patellar tracking normal. Medial femoral condyle diffuse grade 3 change with punctate areas of grade 4 change on the most medial aspect of the weightbearing surface of the medial femoral condyle. Medial tibial plateau grade 1 change. Medial meniscus complex tear at the white-white zone of the junction of the posterior horn and middle body of the medial meniscus. Lateral femoral condyle normal chondral surfaces. Lateral tibial plateau mild grade 1 change. Lateral meniscus normal. Anterior cruciate ligament normal. Posterior cruciate ligament normal. Infrapatellar notch thickened inferior plica and multiple small cartilaginous loose bodies. DETAILS OF THE PROCEDURE: The patient was identified in the preoperative holding area. Surgical site was marked by both the patient and myself. He was given 2 grams of Ancef IV for prophylactic purposes. He was then transported to the operative suite. He was placed supine on the operating room table. A spinal anesthetic was then administered and dosed per the anesthesia department without apparent complication. Examination under anesthesia was then performed of both knees. The findings are noted above. Tourniquet was then placed high on the right upper thigh, well padded in preparation for surgery. The tourniquet was not inflated throughout the entire procedure. The patient's right lower extremity was then prepped and draped in the usual sterile fashion. A standard surgical pause was undertaken to ensure that we were operating on the correct site and that appropriate preoperative antibiotics had been given. All staff in the room were in agreement and we proceeded. The knee was then inflated with approximately 90 mL of sterile saline solution. This was done to gradually distend the joint. A standard inferolateral portal was then made. A 30-degree arthroscope was introduced into the suprapatellar pouch. The arthroscopic pump pressure was set at 60 mmHg and maintained at that level throughout the entire case. Next, utilizing an 18-gauge spinal needle to topically localize the placement, an inferomedial portal was made under direct visualization. A standard diagnostic arthroscopy of the knee was then performed. The findings are noted as above. Attention then drawn to the infrapatellar notch. There was very thickened infrapatellar plica as well as thickened medial shelf plica. These were released with a biter and debrided back to stable tissue using a synovial shaver. He also had multiple cartilaginous loose bodies in the anterior compartment. These were removed with both the shaver and with a pituitary grasper. The largest of these was approximately 5 mm in diameter. Attention was then drawn to the medial compartment. There was a complex tear at the junction of the posterior horn and the middle body of the medial meniscus. It was a radial type tear, but it was quite macerated. This tear was deemed irreparable. The meniscus tear was then debrided with a combination of biter and synovial shaver back to stable tissue. Approximately 75% of the posterior horn and the middle body of the medial meniscus remained intact after debridement. The arthroscope was then placed medial to the posterior cruciate ligament through the notch in the posteromedial compartment of the knee. There were no residual flap tears or loose bodies noted. The posterior root attachment was carefully inspected and found to be intact. At this point in time no further work was deemed necessary. The knee was thoroughly irrigated and then drained with an outflow cannula. The arthroscopic equipment was removed from the knee. The arthroscopic portals were then closed with 3-0 nylon interrupted suture. Sterile compressive dressing was then applied. All sponge and needle counts were deemed correct prior to closure. The patient tolerated the procedure without apparent complication. The tourniquet was not inflated throughout the entire procedure. He was transferred to the recovery room in stable condition. MMODL / IJN: [id number] /
[2021-12-02 10:56] VITALS: BP 142/69; PULSE 50
== END 2021-12-02 11:15 | disposition home or self-care (01) ==
LOC: OR 06:46
PROVIDERS: ATTEND Orthopaedic Surgery Sports Medicine
DX: S83.242A Other tear of medial meniscus, current injury, left knee, initial encounter (principal); M67.51 Plica syndrome, right knee
CPT/HCPCS: 29881; 29884; J2400; J2250; J1100; J2405; J2704

== ENCOUNTER → 2022-10-13 | Outpatient (CLI) | payer BC ==
--- NOTE | 2022-10-13 16:22 | US ---
EXAMINATION TYPE: US scrotum with doppler. DATE OF EXAM: 10/13/2022 COMPARISON: NONE CLINICAL HISTORY: 56-year-old male N50.89 SCROTAL SWELLING. Patient states left scrotal swelling that comes and goes since July. Patient states having small right testicle since he was a little boy with hx of undescended testicle with surgery. TECHNIQUE: Grayscale and color Doppler Duplex imaging performed of the scrotum. FINDINGS: EXAM MEASUREMENTS: TESTICLES: Right Testicle: 3.5 x 2.7 x 1.8 cm, smaller in size, slightly heterogeneous. Left Testicle: 4.5 x 4.3 x 2.8 cm, normal homogeneous appearance. Doppler performed to assess for testicular vascularity; good bilateral color flow and waveforms are s een. There is no evidence of testicular torsion. EPIDIDYMIS HEAD: Right Epididymis: 0.7 x 0.8 x 0.6 cm epididymal head cyst. The remainder of the epididymal tissue is not well seen. Left Epididymis: 0.9 x 0.8 x 0.8 cm Presence of hydroceles: Small on the left. Presence of varicoceles: Prominent vessels superior to the right testicle that augment with Valsalva . Additionally, on the left, varicoceles are seen throughout. IMPRESSION: 1. Small, slightly heterogeneous right testicle compatible with patient's reported history above. 2. No sonographic evidence for testicular torsion on either side. 3. Small left-sided hydrocele. 4. Prominent varicoceles in the left hemiscrotum. Smaller varicoceles on the right.
== END | disposition home or self-care (01) ==
LOC: RADUSWWP 12:45
PROVIDERS: ATTEND Urology
DX: N43.3 Hydrocele, unspecified (principal); I86.1 Scrotal varices; N50.89 Other specified disorders of the male genital organs
CPT/HCPCS: 76870; 93975

== ENCOUNTER → 2022-12-12 | Outpatient (CLI) | payer OTHER ==
--- NOTE | 2022-12-12 22:10 | US ---
EXAMINATION TYPE: US kidneys/renal and bladder DATE OF EXAM: 12/12/2022 COMPARISON: CT abdomen and pelvis 2010 CLINICAL HISTORY: N39.9 disord of urinary sys unsp. UTI, urinary frequency EXAM MEASUREMENTS: Right Kidney: 12.1 x 6.2 x 5.1 cm Left Kidney: 12.9 x 6.7 x 5.1 cm Right Kidney: no evidence of hydronephrosis Left Kidney: prominent collecting system Bladder: wnl Bilateral Jets seen: yes Cortical medullary differentiation is maintained. No right-sided hydronephrosis. Mild to minimal left -sided pyelocaliectasis. No nephrolithiasis is seen. No masses are identified. The urinary bladder is adequately distended. Bilateral ureteral jets are seen. IMPRESSION: Mild to minimal left-sided hydronephrosis.
== END | disposition home or self-care (01) ==
LOC: RADUSWWP 16:03
PROVIDERS: ATTEND Urology
DX: N39.0 Urinary tract infection, site not specified (principal); N13.30 Unspecified hydronephrosis
CPT/HCPCS: 76770

== ENCOUNTER 2023-06-26 12:17 | Emergency (ER) | payer OTHER ==
--- NOTE | 2023-06-26 13:06 | ED ---
Wound/Laceration HPI - General Source: patient, RN notes reviewed Mode of arrival: ambulatory Limitations: no limitations <Kirti Kraft - Last Filed: 06/26/23 13:07> <Frankie Allen - Last Filed: 06/26/23 14:52> - General Chief Complaint: Wound/Laceration Stated Complaint: Left Finger Lac Time Seen by Provider: 06/26/23 13:02 - History of Present Illness Initial Comments: This is a 57 year old male who presents to the emergency department for a left hand injury. States that he got his fingers caught in the hydraulic press of a wood splitter, and sustained a laceration to the left index finger. He has pain in the middle three fingers and to the hand. Not taking any blood thinners. Unsure when his last tetanus vaccine was. (Kirti Kraft) 57-year-old male presents to the ED with a chief complaint of left hand injury. Patient states that he got his left hand caught in the hydraulic press portion of a wood splitter. States that he was able to free his left hand but now notes a laceration to his left second finger and pain of the hand. No other injuries at this time. Tetanus status unknown. No other complaints. (Frankie Allen) - Related Data Home Medications Medication Instructions Recorded Confirmed Omeprazole [PriLOSEC] 20 mg PO DAILY 06/30/15 12/02/21 Testosterone [Androgel 1.62% Gel 2 applic TOPICAL DAILY 03/22/17 12/02/21 Pump] Cetirizine HCl 10 mg PO DAILY 11/29/21 12/02/21 Echinacea-Dose [facility] 11/29/21 Elderberry Dose [facility] 11/29/21 Fluticasone Nasal [place] [Flonase 2 spray EA NOSTRIL BID 11/29/21 12/02/21 Nasal [place]] Multivitamins, Thera [Multivitamin 1 tab PO DAILY 11/29/21 12/02/21 (formulary)] Simvastatin [Zocor] 20 mg PO DAILY 11/29/21 12/02/21 Vit C-Dose Unk 11/29/21 11/29/21 Vit D3-Dose Unknown 11/29/21 Zinc-Dose [facility] 11/29/21 Previous Rx's Medication Instructions Recorded Docusate [Colace] 100 mg PO BID #60 capsule 12/02/21 HYDROcodone/APAP 7.5-325MG [[place] 1 - 2 each PO Q6HR PRN #24 tab 12/02/21 7.5-325] HYDROcodone/APAP 7.5-325MG [[place] 1 tab PO Q6HR PRN 3 Days #12 tab 06/26/23 7.5-325] Allergies Allergy/AdvReac Type Severity Reaction Status Date / Time Iodinated Contrast Media Allergy Anaphylaxis Verified 12/02/21 07:16 [Iodinated Contrast Media - IV Dye] codeine AdvReac Nausea & Verified 06/26/23 13:10 Vomiting FAMILY HX MALIGNANT AdvReac Unknown Uncoded 12/02/21 07:16 HYPERTHERMIA Review of Systems ROS Other: All systems not noted in ROS Statement are negative. <Kirti Kraft - Last Filed: 06/26/23 13:07> ROS Other: All systems not noted in ROS Statement are negative. <Frankie Allen - Last Filed: 06/26/23 14:52> ROS Statement: Those systems with pertinent positive or pertinent negative responses have been documented in the HPI. Past Medical History Past Medical History: No Reported History Additional Past Medical History / Comment(s): SEASONAL ALLERGIES. PT HAD RLE INJURY WITH STAPH INFECTION (SUSPECTED MRSA) IN 2017-WAS ON VANCOMYCIN FOR 5 DAYS. History of Any Multi-Drug Resistant Organisms: None Reported Past Surgical History: Appendectomy, Back Surgery, Orthopedic Surgery Additional Past Surgical History / Comment(s): bilat knee x 6, c5-6 fusion 2000, right rotator cup, deviated septum rx, Past Anesthesia/Blood Transfusion Reactions: Family Hisory of Malignant Hyperthermia, Postoperative Nausea & Vomiting (PONV) Additional Past Anesthesia/Blood Transfusion Reaction / Comment(s): PT HAS HAD ANESTHESIA WITH NO PROBLEMS Smoking Status: Former smoker - Past Family History Mother Family Medical History: No Reported History Father Family Medical History: Cancer <Kirti Kraft - Last Filed: 06/26/23 13:07> General Exam <Kirti Kraft - Last Filed: 06/26/23 13:07> Limitations: no limitations General appearance: alert, in no apparent distress Eye exam: Present: normal appearance Neck exam: Present: normal inspection Respiratory exam: Present: normal lung sounds bilaterally Cardiovascular Exam: Present: regular rate, normal rhythm GI/Abdominal exam: Present: soft Extremities exam: Present: other (AG motion of the fingers of left hand limited secondary to pain. Patient does have diffuse bony tenderness of the hand however most tender at the second phalanx with overlying laceration.) Neurological exam: Present: alert, oriented X3 Skin exam: Present: warm, dry <Frankie Allen - Last Filed: 06/26/23 14:52> - General Exam Comments Initial Comments: Visual Physical Exam Vital signs reviewed General: Well-appearing, nontoxic, no acute distress. Head: Normocephalic, atraumatic Eyes: PERRLA, EOMI ENT: Airway patent Chest: Nonlabored breathing Skin: No visual rash, normal skin tone Neuro: Alert and oriented 3 Musculoskeletal: No gross abnormalities I performed the QuickNote portion of this chart. Signed Kirti Kraft PA-C. (Kirti Kraft) Course Vital Signs 06/26/23 13:03 Temperature 98.2 F Pulse Rate 70 Respiratory 18 Rate Blood Pressure 143/87 O2 Sat by Pulse 97 Oximetry Procedures - Orthopedic Splinting/Casting Injury #1 Upper Extremity Immobilizer: kostas tape, finger (other) <Frankie Allen - Last Filed: 06/26/23 14:52> Medical Decision Making <Frankie Allen - Last Filed: 06/26/23 14:52> - Medical Decision Making Was pt. sent in by a medical professional or institution (MARIANNA Judge, TANNING SOLUTION [employer]KER, urgent ca re, hospital, or halfway...) When possible be specific @ -No Did you speak to anyone other than the patient for history (EMS, parent, family, police, friend...)? What history was obtained from this source @ -No Did you review nursing and triage notes (agree or disagree)? Why? @ -I reviewed and agree with nursing and triage notes Were old charts reviewed (outside hosp., previous admission, EMS record, old EKG, old radiological studies, urgent care reports/EKG's, halfway records)? Report findings @ -No old charts were reviewed Differential Diagnosis (chest pain, altered mental status, abdominal pain women, abdominal pain men, vaginal bleeding, weakness, fever, dyspnea, syncope, headache, dizziness, GI bleed, back pain, seizure, CVA, palpatations, mental health, musculoskeletal)? @ -Differential Musculoskeletal Muscular strain, contusion, ligament sprain, fracture, arthritis, septic arthritis, bursitis, cellulitis, muscle spasm, nerve compression, DVT, arterial occlusion, herpes zoster, electrolyte abnormality, tumor.... This is not meant to be in all inclusive list EKG interpreted by me (3pts min.). @ -As above X-rays interpreted by me (1pt min.). @ -X-ray of the left hand interpreted by me showing nondisplaced midshaft fracture of the second proximal phalanx. CT interpreted by me (1pt min.). @ -None done U/S interpreted by me (1pt. min.). @ -None done What testing was considered but not performed or refused? (CT, X-rays, U/S, labs)? Why? @ -None What meds were considered but not given or refused? Why? @ -None Did you discuss the management of the patient with other professionals (professionals i.e. , PA, T[employer]ING [employer]UTION [employer]KER, lab, RT, psych nurse, high school social studies teacher, stock counter, teacher, chief customer officer, case consultant)? Give summary @ -Spoke to Carlie of orthopedics. After speaking to attending, recommend no IV antibiotics and outpatient follow up. Was smoking cessation discussed for >3mins.? @ -No Was critical care preformed (if so, how long)? @ -No Were there social determinants of health that impacted care today? How? (Homelessness, low income, unemployed, alcoholism, drug addiction, transportation, low edu. Level, literacy, decrease access to med. care, shelter, rehab)? @ -No Was there de-escalation of care discussed even if they declined (Discuss DNR or withdrawal of care, Hospice)? DNR status @ -No What co-morbidities impacted this encounter? (DM, HTN, Smoking, COPD, CAD, Cancer, CVA, ARF, Chemo, Hep., AIDS, mental health diagnosis, sleep apnea, morbid obesity)? @ -None Was patient admitted / discharged? Hospital course, mention meds given and route, prescriptions, significant lab abnormalities, going to OR and other pertinent info. @ -Discharge 57-year-old male presenting to the ED with a chief complaint of left hand injury occurring at approximately 11 PM today. X-ray did show nondisplaced midshaft fracture of the second proximal phalanx. Patient did have overlying skin tear. Did contact or so due to concerns of open fracture. At this time admitted no IV antibiotics and recommended outpatient follow-up. Patient had wound cleansed and covered with bacitracin and bandaged. Finger splint applied and kostas taped to third finger. Discharged home in stable condition. Provided prescription for [place]. Discussed return precautions with patient who verbalizes agreement. Undiagnosed new problem with uncertain prognosis? @ -No Drug Therapy requiring intensive monitoring for toxicity (Heparin, Nitro, Insulin, Cardizem)? @ -No Were any procedures done? @ -Yes Diagnosis/symptom? @ -2nd proximal midshaft phalanx fracture Acute, or Chronic, or Acute on Chronic? @ -Acute Uncomplicated (without systemic symptoms) or Complicated (systemic symptoms)? @ -Uncomplicated Side effects of treatment? @ -No Exacerbation, Progression, or Severe Exacerbation? @ -No Poses a threat to life or bodily function? How? (Chest pain, [place], [place], pneumonia, PE, COPD, DKA, ARF, appy, cholecystitis, CVA, Diverticulitis, Homicidal, Suicidal, threat to staff... and all critical care pts) @ -No (Frankie Allen) Disposition <Kirti Kraft - Last Filed: 06/26/23 13:07> Is patient prescribed a controlled substance at d/c from ED?: Yes When asked, does pt state using other controlled substances?: No If prescribed controlled substance>3 days was MAPS reviewed?: Prescribed <3 Days If opioid is for acute pain is fill amount 7 days or less?: Yes If Rx opioid, was Start Talking consent form obtained?: Yes Time of Disposition: 14:48 <Frankie Allen - Last Filed: 06/26/23 14:52> Clinical Impression: Finger fracture, left Disposition: HOME SELF-CARE Condition: Good Additional Instructions: Please return to the Emergency Department if symptoms worsen or any other concerns. Please follow-up with orthopedics. Monitor for signs of infection. Prescriptions: HYDROcodone/APAP 7.5-325MG [[place] 7.5-325] 1 tab PO Q6HR PRN 3 Days #12 tab PRN Reason: Pain Referrals: Jewell August MD [Primary Care Provider] - 1-2 days Richard Delong DO [Doctor of Osteopathic Medicine] - 1-2 days
[2023-06-26] MEDS ORDERED: DIPH,PERTUS(ACELL)TETVAC-LF 0.5 ML VIAL IM ONE (13:07)
[2023-06-26 13:23] VITALS: BP 143/87; PULSE 70; RESP 18; TEMP 98.2
[2023-06-26] MEDS ORDERED: KETOROLAC 15 MG/ML 1 ML VIAL IM STA (13:38)
--- NOTE | 2023-06-26 14:11 | XR ---
EXAMINATION TYPE: XR hand complete LT DATE OF EXAM: 06/26/2023 2:06 PM INDICATION: Patient age:Male; 57 years old; Reason for study: Injury; PHH. COMPARISON: None TECHNIQUE: Frontal, lateral and oblique views of the left hand were obtained. FINDINGS: Acute nondisplaced transverse fracture of the midshaft of the second proximal phalanx. Ther e is surrounding soft tissue edema. No radiopaque foreign body. IMPRESSION: Acute nondisplaced fracture of the midshaft of the second proximal phalanx.
[2023-06-26] MEDS ORDERED: BACITRACIN OINT 1 EACH PACKET TOPICAL ONE (14:28)
== END 2023-06-26 15:02 | disposition home or self-care (01) ==
LOC: EC 12:17
DX: S62.617A Displaced fracture of proximal phalanx of left little finger, initial encounter for closed fracture (principal); Z87.891 Personal history of nicotine dependence; Z88.5 Allergy status to narcotic agent; Z91.041 Radiographic dye allergy status; Z88.8 Allergy status to other drugs, medicaments and biological substances; Z23 Encounter for immunization; W23.1XXA Caught, crushed, jammed, or pinched between stationary objects, initial encounter
CPT/HCPCS: 73130; 90715; 99283; 90471; 96372; J1885

== ENCOUNTER 2023-11-29 20:48 | Observation (INO) | payer OTHER ==
--- NOTE | 2023-11-29 21:07 | ED ---
Chest Pain HPI - General Chief Complaint: Chest Pain Stated Complaint: AFib, Chest Pressure Time Seen by Provider: 11/29/23 21:05 Source: patient, family, RN notes reviewed, old records reviewed Mode of arrival: ambulatory Limitations: no limitations - History of Present Illness Initial Comments: This is a 58-year-old male to ER for evaluation today. [facility] of chest pain and shortness of breath significant chest pain or shortness of breath on arrival to the ER with severely elevated heart rate which she was able to capture at home into the 160s as well as persistently here in the ER. He has no recent travel history or sick contacts he had a clean heart catheterization within the last 2 years and was a smoker quit years ago. Patient denies any current drugs or alcohol MD Complaint: chest pain -: days(s) Onset: during rest, during exertion Pain Location: substernal Pain Radiation: none Severity: moderate, severe Severity scale (1-10): 10 Quality: tightness Consistency: constant Improves With: nothing Worsens With: nothing Context: recent illness Anginal Symptoms: nausea, dyspnea, sense of impending doom Other Symptoms: palpitations Treatments Prior to Arrival: none - Related Data Home Medications Medication Instructions Recorded Confirmed Cetirizine HCl 10 mg PO DAILY PRN 11/29/21 11/29/23 Azelastine HCl [Astelin Nasal 1 spray EA NOSTRIL DAILY 11/29/23 11/29/23 [place]] Pantoprazole [Protonix] 40 mg PO BID 11/29/23 11/29/23 Pravastatin Sodium [Pravachol] 20 mg PO DAILY 11/29/23 11/29/23 Tamsulosin [Flomax] 0.4 mg PO DAILY 11/29/23 11/29/23 Testosterone [Androgel 1.62%] 2 pump TRANSDERM DAILY 11/29/23 11/29/23 Previous Rx's Medication Instructions Recorded Rivaroxaban [Xarelto] 20 mg PO W/SUPPER #30 tab 12/01/23 Allergies Allergy/AdvReac Type Severity Reaction Status Date / Time Iodinated Contrast Media Allergy Anaphylaxis Verified 12/05/23 19:31 [Iodinated Contrast Media - IV Dye] codeine AdvReac Nausea & Verified 12/05/23 19:31 Vomiting FAMILY HX MALIGNANT AdvReac Unknown Uncoded 12/05/23 19:31 HYPERTHERMIA Review of Systems ROS Statement: Those systems with pertinent positive or pertinent negative responses have been documented in the HPI. ROS Other: All systems not noted in ROS Statement are negative. EKG Findings - EKG Comments: EKG Findings:: EKG is A-fib 90 QRS 81 QTc 385 - EKG Results: EKG: interpreted by MARÍA ELENA Past Medical History Past Medical History: No Reported History Additional Past Medical History / Comment(s): SEASONAL ALLERGIES. PT HAD RLE INJURY WITH STAPH INFECTION (SUSPECTED MRSA) IN 2017-WAS ON VANCOMYCIN FOR 5 DAYS. History of Any Multi-Drug Resistant Organisms: None Reported Past Surgical History: Appendectomy, Back Surgery, Orthopedic Surgery Additional Past Surgical History / Comment(s): bilat knee x 6, c5-6 fusion 1999, right rotator cup, deviated septum rx, Past Anesthesia/Blood Transfusion Reactions: Family Hisory of Malignant Hyperthermia, Postoperative Nausea & Vomiting (PONV) Additional Past Anesthesia/Blood Transfusion Reaction / Comment(s): PT HAS HAD ANESTHESIA WITH NO PROBLEMS Past Psychological History: No Psychological Hx Reported Smoking Status: Former smoker - Past Family History Mother Family Medical History: No Reported History Father Family Medical History: Cancer General Exam Limitations: no limitations General appearance: alert, anxious, in distress Head exam: Present: atraumatic, normocephalic, normal inspection Eye exam: Present: normal appearance, PERRL, EOMI. Absent: scleral icterus, conjunctival injection, periorbital swelling ENT exam: Present: normal exam, mucous membranes moist Neck exam: Present: normal inspection. Absent: tenderness, meningismus, lymphadenopathy Respiratory exam: Present: normal lung sounds bilaterally. Absent: respiratory distress, wheezes, rales, rhonchi, stridor Cardiovascular Exam: Present: tachycardia, irregular rhythm, normal heart sounds. Absent: systolic murmur, diastolic murmur, rubs, gallop, clicks GI/Abdominal exam: Present: soft, normal bowel sounds. Absent: distended, tenderness, guarding, rebound, rigid Extremities exam: Present: normal inspection, full ROM, normal capillary refill. Absent: tenderness, pedal edema, joint swelling, calf tenderness Back exam: Present: normal inspection Neurological exam: Present: alert, oriented X3, CN II-XII intact Psychiatric exam: Present: normal affect, normal mood Skin exam: Present: warm, dry, intact, normal color. Absent: rash Course Vital Signs 11/29/23 11/29/23 11/29/23 20:51 21:09 22:51 Temperature 97.3 F L Pulse Rate 70 110 H 68 Respiratory 20 16 18 Rate Blood Pressure 116/81 143/93 149/82 O2 Sat by Pulse 96 96 98 Oximetry 11/29/23 23:26 Temperature Pulse Rate 75 Respiratory 18 Rate Blood Pressure 140/88 O2 Sat by Pulse 98 Oximetry - Reevaluation(s) Reevaluation #1: 11/29/23 22:09 Records reviewed Reevaluation #2: 11/29/23 22:09 Patient symptoms unchanged Reevaluation #3: 11/29/23 22:09 Patient informed of results and questions answered Reevaluation #4: Was pt. sent in by a medical professional or institution (MARIANNA Judge, EQUINE INTERN, urgent care, hospital, or residential...) When possible be specific @ -no Did you speak to anyone other than the patient for history (EMS, parent, family, police, friend...)? What history was obtained from this source @ -no Did you review nursing and triage notes (agree or disagree)? Why? @ -agree Are old charts reviewed (outside hosp., previous admission, EMS record, old EKG, old radiological studies, urgent care reports/EKG's, residential records)? Report findings @ -yes Differential Diagnosis (chest pain, altered mental status, abdominal pain women, abdominal pain men, vaginal bleeding, weakness, fever, dyspnea, syncope, headache, dizziness, GI bleed, back pain, seizure, CVA, palpatations, mental health, musculoskeletal)? @ -prior EKG interpreted by me (3pts min.). @ -yes X-rays interpreted by me (1pt min.). @ -yes negative for acute disease CT interpreted by me (1pt min.). @ -no U/S interpreted by me (1pt. min.). @ -no What testing was considered but not performed or refused? (CT, X-rays, U/S, labs)? Why? @ -none What meds were considered but not given or refused? Why? @ -none Did you discuss the management of the patient with other professionals (professionals i.e. MARIANNA Judge, EQUINE INTERN, lab, RT, psych nurse, vp digital marketing social media and crm, sensory scientist, teacher, safety instruction police officer, keycase assembler)? Give summary @ -no Was smoking cessation discussed for >3mins.? @ -no Was critical care preformed (if so, how long)? @ -yes31 Were there social determinants of health that impacted care today? How? (Homelessness, low income, unemployed, alcoholism, drug addiction, transportation, low edu. Level, literacy, decrease access to med. care, nursing home, rehab)? @ -none Was there de-escalation of care discussed even if they declined (Discuss DNR or withdrawal of care, Hospice)? DNR status @ -no What co-morbidities impacted this encounter? (DM, HTN, Smoking, COPD, CAD, Cancer, CVA, ARF, Chemo, Hep., AIDS, mental health diagnosis, sleep apnea, morbid obesity)? @ -none Was patient admitted / discharged? Hospital course, mention meds given and route, prescriptions, significant lab abnormalities, going to OR and other pertinent info. @ - 58-year-old male to the ER for evaluation today. Patient returns today for evaluation regards to atrial fibrillation with RVR. Patient will be admitted for cardiology evaluation and management with persistent shortness of breath and chest pain Admitted Undiagnosed new problem with uncertain prognosis? @ -no Drug Therapy requiring intensive monitoring for toxicity (Heparin, Nitro, Insulin, Cardizem)? @ -no Were any procedures done? @ -no Diagnosis/symptom? @ -Atrial fibrillation with RVR Acute, or Chronic, or Acute on Chronic? @ -Acute Uncomplicated (without systemic symptoms) or Complicated (systemic symptoms)? @ -Complicated Side effects of treatment? @ -no Exacerbation, Progression, or Severe Exacerbation? @ -exacerbation Poses a threat to life or bodily function? How? (Chest pain, [place], [place], pneumonia, PE, COPD, DKA, ARF, appy, cholecystitis, CVA, Diverticulitis, Homicidal, Suicidal, threat to staff... and all critical care pts) @ -yes with significant arrhythmia Reevaluation #5: Differential Chest Pain: Stable Angina, Unstable Angina, STEMI, NSTEMI Aortic Dissection, Pneumothorax, Musculoskeletal, Esophageal Spasm GERD, Cholecystitis, Pancreatitis, Zoster, this is not meant to be an all-inclusive list. - Consultations Consultation #1: Spoke with [facility] who agrees to admit this patient Chest Pain MDM - [facility] 58-year-old male to the ER for evaluation today. Patient returns today for evaluation regards to atrial fibrillation with RVR. Patient will be admitted for cardiology evaluation and management with persistent shortness of breath and chest pain Critical Care Time Critical Care Time: Yes Total Critical Care Time: 31 Disposition Clinical Impression: Chest pain, Atrial fibrillation with rapid ventricular response Disposition: ADMITTED IP TO THIS HOSP Condition: Good Is patient prescribed a controlled substance at d/c from ED?: No Time of Disposition: 22:00
[2023-11-29 21:43] LABS: Basophils # (A) 0.1 k/uL (0-0.2); Basophils % (A) 1 %; Eosinophils # (A) 0.3 k/uL (0-0.7); Eosinophils % (A) 3 %; HCT 48.8 % (39.0-53.0); HGB 16.8 gm/dL (13.0-17.5); Lymphocytes # (A) 2.1 k/uL (1.0-4.8); Lymphocytes % (A) 20 %; MCH 33.1 pg (25.0-35.0); MCHC 34.4 g/dL (31.0-37.0); Monocytes # (A) 0.7 k/uL (0-1.0); Monocytes % (A) 6 %; Neutrophils % (A) 68 %; Platelet Count 252 k/uL (150-450); RBC 5.08 m/uL (4.30-5.90); RDW 12.8 % (11.5-15.5); WBC 10.4 k/uL (3.8-10.6)
[2023-11-29 21:51] LABS: INR 0.9 (<1.2); Prothrombin Time 9.7 sec (10.0-12.5)
[2023-11-29 21:52] LABS: Partial Thromboplastin Time 24.1 sec (22.0-30.0)
[2023-11-29 21:58] LABS: ALT 39 U/L (4-49); AST 37 U/L (17-59); African American GFR (CKD) 86 (>60 ml/min/1.73 sqM); Albumin 4.2 g/dL (3.5-5.0); Alkaline Phosphatase 79 U/L (38-126); Anion Gap 10 mmol/L; Blood Urea Nitrogen 21 mg/dL (9-20); Calcium 9.5 mg/dL (8.4-10.2); Carbon Dioxide 24 mmol/L (22-30); Chloride 108 mmol/L (98-107); Glucose 107 mg/dL (74-99); Lipase 159 U/L (23-300); Magnesium 2.2 mg/dL (1.6-2.3); Non-African American GFR(CKD) 74 (>60 ml/min/1.73 sqM); Potassium 3.9 mmol/L (3.5-5.1); Sodium 142 mmol/L (137-145); Total Bilirubin 0.5 mg/dL (0.2-1.3); Total Protein 7.5 g/dL (6.3-8.2)
[2023-11-29 22:06] LABS: NT-Pro-B-Type Natriuretic Pept 78 pg/mL
[2023-11-29] MEDS ORDERED: ONDANSETRON 4 MG/2 ML VIAL IVP PRN (22:06)
[2023-11-29] MEDS ORDERED: NALOXONE 0.4 MG/ML 1 ML VIAL IV PRN (22:06)
[2023-11-29] MEDS: DILTIAZEM 125 MG in SODIUM CHLORIDE 0.9% 100 ML IV SCH (22:24)
[2023-11-29] MEDS: DILTIAZEM DRIP BOLUS FROM BAG 1 MG SOLN IV ONE (22:29)
[2023-11-29] MEDS: HEPARIN SOD,PORK IN 0.45% NACL 25,000 UNIT in 0.45% NACL 1 250ML.BAG IV SCH (22:42)
[2023-11-29] MEDS: HEPARIN SODIUM 1,000 UN/ML (10ML VL) IV ONE (22:43)
[2023-11-29] MEDS: SODIUM CHLORIDE 0.9% 1,000 ML IV SCH (22:48)
[2023-11-29] MEDS: MORPHINE SULFATE 4 MG/ML SYRINGE IV PRN (22:51)
--- NOTE | 2023-11-29 22:57 | XR ---
EXAMINATION TYPE: XR chest 2V DATE OF EXAM: 11/29/2023 9:32 PM CLINICAL INDICATION:Male, 58 years old with history of Chest Pain; [facility] COMPARISON: 01/15/2020 TECHNIQUE: XR chest 2V. Frontal and lateral views of the chest.. FINDINGS: Lines/Tubes/Devices: EKG leads overlie the chest. No indwelling lines are seen. Heart/mediastinum: Stable cardiomediastinal silhouette. Heart size appears within normal limits with mildly prominent pericardial fat. Unremarkable mediastinum. Pulmonary vascularity: Not increased, Lungs/Pleura: There is no evidence of pleural effusion, focal consolidation, or pneumothorax. Musculoskeletal: No acute osseous abnormality demonstrated in the limits of the exam. Mild degenerat nazario changes of the shoulders and spine with mild apex right curvature in the thoracic region and slig htly exaggerated kyphosis. Partially seen ACDF hardware over the lower cervical spine. Other findings: None. IMPRESSION: No acute cardiopulmonary abnormality.
[2023-11-30 04:29] LABS: Basophils # (A) 0.1 k/uL (0-0.2); Basophils % (A) 1 %; Eosinophils # (A) 0.3 k/uL (0-0.7); Eosinophils % (A) 4 %; HCT 46.9 % (39.0-53.0); HGB 15.8 gm/dL (13.0-17.5); Lymphocytes # (A) 2.3 k/uL (1.0-4.8); Lymphocytes % (A) 27 %; MCH 32.5 pg (25.0-35.0); MCHC 33.8 g/dL (31.0-37.0); MCV 96.3 fL (80.0-100.0); Mean Platelet Volume 7.3; Monocytes # (A) 0.6 k/uL (0-1.0); Monocytes % (A) 7 %; Neutrophils % (A) 59 %; Platelet Count 244 k/uL (150-450); RBC 4.87 m/uL (4.30-5.90); RDW 13.2 % (11.5-15.5); WBC 8.4 k/uL (3.8-10.6)
[2023-11-30 04:45] LABS: INR 0.9 (<1.2); Partial Thromboplastin Time 30.9 sec (22.0-30.0); Prothrombin Time 10.1 sec (10.0-12.5)
[2023-11-30 04:52] LABS: ALT 33 U/L (4-49); African American GFR (CKD) >90 (>60 ml/min/1.73 sqM); Albumin 3.5 g/dL (3.5-5.0); Anion Gap 8 mmol/L; Blood Urea Nitrogen 22 mg/dL (9-20); Calcium 8.5 mg/dL (8.4-10.2); Carbon Dioxide 22 mmol/L (22-30); Chloride 109 mmol/L (98-107); Glucose 125 mg/dL (74-99); Non-African American GFR(CKD) >90 (>60 ml/min/1.73 sqM); Sodium 139 mmol/L (137-145); Total Bilirubin 0.7 mg/dL (0.2-1.3); Total Protein 6.4 g/dL (6.3-8.2)
[2023-11-30] MEDS: HEPARIN SODIUM 1,000 UN/ML (10ML VL) IV PRN (05:16)
[2023-11-30 05:27] LABS: AST 36 U/L (17-59); Alkaline Phosphatase 66 U/L (38-126); Magnesium 2.1 mg/dL (1.6-2.3); Phosphorus 3.9 mg/dL (2.5-4.5); Potassium 4.3 mmol/L (3.5-5.1)
[2023-11-30] MEDS: PRAVASTATIN SODIUM 20 MG TAB PO SCH (08:56)
[2023-11-30] MEDS: TAMSULOSIN 0.4 MG CAP.ER.24H PO SCH (08:56)
[2023-11-30] MEDS: RIVAROXABAN 20 MG TAB PO SCH (08:56)
[2023-11-30] MEDS: AZELASTINE 137MCG/SPRAY EA NOSTRIL SCH (08:57)
[2023-11-30] MEDS: PANTOPRAZOLE 40 MG TABLET PO SCH (08:57)
[2023-11-30] MEDS ORDERED: NAPROXEN 250 MG TAB PO PRN (09:00)
[2023-11-30] MEDS ORDERED: APIXABAN 5 MG TAB PO SCH (09:00)
[2023-11-30] MEDS ORDERED: LORATADINE 10 MG TAB PO PRN (09:00)
--- NOTE | 2023-11-30 09:31 | P.CRDCN ---
History of Present Illness Consult date: 11/30/23 Reason for Consult (text): "known" History of present illness: History of present illness: This is a 58-year-old male with past medical history of seasonal allergies, KALIA on CPAP, remote history of tobacco use and dependence. Patient states that yesterday in the afternoon he was not feeling very well had some pressure in his chest and his heart felt like it was fast and irregular. He had some dizziness felt tired and sweaty and then he developed some indigestion. He had some nausea without vomiting. No syncopal episode. He contacted a friend who is a mental health assistant and he checked his blood pressure which was a systolic of 164 and the mental health assistant thought he was in atrial fibrillation. He has never had this in the past. He came in to [facility] to be evaluated and was found to be in A-fib and started on heparin drip and Cardizem drip. Cardizem drip has been placed on hold due to bradycardia. He subsequently converted to sinus rhythm after our evaluation. He states he still has some shortness of breath. He complains of sinus problems. Patient was a smoker and quit 10 years ago. He drinks 2 cups of coffee per day. Rare alcohol use. EKG atrial fibrillation with ventricular rate of 90 bpm Chest x-ray: No acute process CBC INR normal. Sodium 139, potassium 4.3, chloride 109, CO2 22, BUN 22 creatinine 0.8. Blood sugar 125. Calcium phosphorus normal. Magnesium 2.1. Liver function tests are within normal limits. Troponin negative x 3. Lipase 159. Home cardiac medications: Pravastatin 20 mg daily. Cardiac catheterization performed by Dr. Masterson on 06/25/2019 at [facility] revealed normal coronary arteries, elevated LVEDP. Echocardiogram performed in the office on 09/22/2020 revealed EF 55%, mild left ventricular hypertrophy, mild mitral digitation, mild tricuspid regurgitation. Review Of Systems: At the time of my exam: CONSTITUTIONAL: Denies fever or chills. HEENT: Denies blurred vision, vision changes, or eye pain. Denies hemoptysis CARDIOVASCULAR: Denies chest pain. Denies orthopnea. Denies PND. Denies palpitations RESPIRATORY: Reports mild shortness of breath. GASTROINTESTINAL: Denies abdominal pain. Denies nausea or vomiting. HEMATOLOGIC: Denies bleeding disorders. GENITOURINARY: Denies any blood in urine. SKIN: Denies pruitis. Denies rash. Physical examination: Gen: This is a 58-year-old male in no acute distress. VS: reviewed blood pressure 118/71, heart rate 54, pulse ox 98% on CPAP. HEENT: Head is atraumatic, normocephalic. Pupils equal, round. Sclerae is anicteric. NECK: Supple. No JVD. LUNGS: Clear to auscultation. No wheezes or rhonchi. No intercostal retractions. HEART: Irregular rate and rhythm. No murmur. ABDOMEN: Soft No tenderness. EXTREMITIES: No pedal edema. No calf tenderness. NEUROLOGICAL: Patient is awake, alert and oriented x3. Assessment: Chest pain, acute coronary syndrome ruled out New onset paroxysmal atrial fibrillation Obstructive sleep apnea on CPAP Seasonal allergies Remote history of tobacco use and dependence Plan: Resume patient's home cardiac medications Discontinue heparin drip and start patient on Xarelto 20 mg daily Obtain TSH Obtain 2-D echocardiogram and Doppler study to assess cardiac structure and f unction If echocardiogram is unremarkable, patient is cleared for discharge from cardiology and may follow-up in the office with Dr. Masterson in 1 to 2 weeks. Thank you kindly for this consultation. Nurse practitioner note has been reviewed, I agree with documented findings and plan of care. Patient was seen and examined. Past Medical History Past Medical History: No Reported History Additional Past Medical History / Comment(s): SEASONAL ALLERGIES. PT HAD RLE INJURY WITH STAPH INFECTION (SUSPECTED MRSA) IN 2017-WAS ON VANCOMYCIN FOR 5 DAYS. History of Any Multi-Drug Resistant Organisms: None Reported Past Surgical History: Appendectomy, Back Surgery, Orthopedic Surgery Additional Past Surgical History / Comment(s): bilat knee x 6, c5-6 fusion 1999, right rotator cup, deviated septum rx, Past Anesthesia/Blood Transfusion Reactions: Family Hisory of Malignant Hyperthermia, Postoperative Nausea & Vomiting (PONV) Additional Past Anesthesia/Blood Transfusion Reaction / Comment(s): PT HAS HAD ANESTHESIA WITH NO PROBLEMS Past Psychological History: No Psychological Hx Reported Smoking Status: Former smoker Past Alcohol Use History: Rare Additional Past Alcohol Use History / Comment(s): QUIT SMOKING 17 YEARS AGO Past Drug Use History: None Reported - Past Family History Mother Family Medical History: No Reported History Father Family Medical History: Cancer Medications and Allergies Home Medications Medication Instructions Recorded Confirmed Type Cetirizine HCl 10 mg PO DAILY PRN 11/29/21 11/29/23 History Azelastine HCl [Astelin Nasal 1 spray EA NOSTRIL DAILY 11/29/23 11/29/23 History [place]] Naproxen [EC-Naprosyn] 500 mg PO BID PRN 11/29/23 11/29/23 History Pantoprazole [Protonix] 40 mg PO BID 11/29/23 11/29/23 History Pravastatin Sodium [Pravachol] 20 mg PO DAILY 11/29/23 11/29/23 History Tamsulosin [Flomax] 0.4 mg PO DAILY 11/29/23 11/29/23 History Testosterone [Androgel 1.62%] 2 pump TRANSDERM DAILY 11/29/23 11/29/23 History Allergies Allergy/AdvReac Type Severity Reaction Status Date / Time Iodinated Contrast Media Allergy Anaphylaxis Verified 11/29/23 22:48 [Iodinated Contrast Media - IV Dye] codeine AdvReac Nausea & Verified 11/29/23 22:48 Vomiting FAMILY HX MALIGNANT AdvReac Unknown Uncoded 11/29/23 20:53 HYPERTHERMIA Physical Exam Vitals: Vital Signs Temp Pulse Pulse Resp BP BP Pulse Ox 11/30/23 04:00 54 L 18 118/71 98 11/29/23 23:49 98 F 70 18 131/81 98 11/29/23 23:26 75 18 140/88 98 11/29/23 22:51 68 18 149/82 98 11/29/23 21:09 110 H 16 143/93 96 11/29/23 20:51 97.3 F L 70 20 116/81 96 Intake and Output 11/29/23 11/30/23 11/30/23 22:59 06:59 14:59 Intake Total 90.526 Balance 90.526 Intake: Intake, IV Titration 90.526 Amount Diltiazem 125 mg In 25.5 Sodium Chloride 0.9% 100 ml @ 5 MG/HR 5 mls/hr IV .Q24H MONICA Rx#:[id number] Heparin Sod,Pork in 0.45% 65.026 NaCl 25,000 unit In 0.45 % NaCl 1 250ml.bag @ 8.02 UNITS/KG/HR 10.004 mls/ hr IV .Q24H MONICA Rx#: [id number] Other: # Voids 1 Weight 124.738 kg 124.738 kg Results 11/30/23 04:17 11/30/23 04:17 Cardiac Enzymes 11/29/23 11/29/23 11/29/23 Range/Units 21:09 21:09 23:47 AST 37 (17-59) U/L Troponin I 0.017 0.016 (0.000-0.034) ng/mL 11/30/23 11/30/23 Range/Units 04:17 04:17 AST 36 (17-59) U/L Troponin I 0.014 (0.000-0.034) ng/mL Coagulation 11/29/23 11/30/23 Range/Units 21:09 04:17 PT 9.7 L 10.1 (10.0-12.5) sec APTT 24.1 30.9 H (22.0-30.0) sec CBC 11/29/23 11/30/23 Range/Units 21:09 04:17 WBC 10.4 8.4 (3.8-10.6) k/uL RBC 5.08 4.87 (4.30-5.90) m/uL Hgb 16.8 15.8 (13.0-17.5) gm/dL Hct 48.8 46.9 (39.0-53.0) % Plt Count 252 244 (150-450) k/uL Comprehensive Metabolic Panel 11/29/23 11/30/23 Range/Units 21:09 04:17 Sodium 142 139 (137-145) mmol/L Potassium 3.9 4.3 (3.5-5.1) mmol/L Chloride 108 H 109 H (98-107) mmol/L Carbon Dioxide 24 22 (22-30) mmol/L BUN 21 H 22 H (9-20) mg/dL Creatinine 1.10 0.80 (0.66-1.25) mg/dL Glucose 107 H 125 H (74-99) mg/dL Calcium 9.5 8.5 (8.4-10.2) mg/dL AST 37 36 (17-59) U/L ALT 39 33 (4-49) U/L Alkaline Phosphatase 79 66 (38-126) U/L Total Protein 7.5 6.4 (6.3-8.2) g/dL Albumin 4.2 3.5 (3.5-5.0) g/dL Current Medications Generic Name Dose Route Start Last Admin Trade Name Asher PRN Reason Stop Dose Admin Azelastine HCl 1 spray 11/30/23 09:00 Azelastine 137mcg/Palmer EA NOSTRIL DAILY [facility] Heparin Sodium (Porcine) 0 unit 11/29/23 22:06 11/30/23 05:16 Heparin Sodium 1,000 Un/Ml (10ml Vl) IV 4,000 unit PER PROTOCOL PRN Administration Low PTT Protocol Diltiazem HCl 125 mg/ Sodium 125 mls @ 5 mls/hr 11/29/23 22:15 11/30/23 03:30 Chloride IV 0 mg/hr .Q24H MONICA 0 mls/hr Infusion 5 MG/HR Heparin Sodium/Sodium Chloride 250 mls @ 10.004 mls/hr 11/29/23 22:15 11/30/23 05:12 25,000 unit/ Sodium Chloride IV 11.02 units/kg/hr .Q24H MONICA 13.746 mls/hr Titration Protocol 8.02 UNITS/KG/HR Sodium Chloride 1,000 mls @ 75 mls/hr 11/29/23 22:15 11/29/23 22:48 Saline 0.9% IV 75 mls/hr .[id number] MONICA Administration Loratadine 10 mg 11/30/23 09:00 Loratadine 10 Mg Tab PO DAILY PRN Allergy Symptoms Morphine Sulfate 4 mg 11/29/23 22:06 11/30/23 04:09 Morphine Sulfate 4 Mg/Ml Syringe IV 4 mg Q4HR PRN Administration Severe Pain (Scale 7 to 10) Naloxone HCl 0.2 mg 11/29/23 22:06 Naloxone 0.4 Mg/Ml 1 Ml Vial IV Q2M PRN Opioid Reversal Naproxen 500 mg 11/30/23 09:00 Naproxen 250 Mg Tab PO BID PRN Pain Ondansetron HCl 4 mg 11/29/23 22:06 Ondansetron 4 Mg/2 Ml Vial IVP Q8HR PRN Nausea And Vomiting Pantoprazole Sodium 40 mg 11/30/23 09:00 Pantoprazole 40 Mg Tablet PO BID [facility] Pravastatin Sodium 20 mg 11/30/23 09:00 Pravastatin Sodium 20 Mg Tab PO DAILY [facility] Tamsulosin HCl 0.4 mg 11/30/23 09:00 Tamsulosin 0.4 Mg Cap.Er.24h PO DAILY [facility] Intake and Output 11/29/23 11/30/23 11/30/23 22:59 06:59 14:59 Intake Total 90.526 Balance 90.526 Intake: Intake, IV Titration 90.526 Amount Diltiazem 125 mg In 25.5 Sodium Chloride 0.9% 100 ml @ 5 MG/HR 5 mls/hr IV .Q24H MONICA Rx#:[id number] Heparin Sod,Pork in 0.45% 65.026 NaCl 25,000 unit In 0.45 % NaCl 1 250ml.bag @ 8.02 UNITS/KG/HR 10.004 mls/ hr IV .Q24H MONICA Rx#: [id number] Other: # Voids 1 Weight 124.738 kg 124.738 kg 11/30/23 04:17 11/30/23 04:17
--- NOTE | 2023-11-30 13:07 | P.HPIM ---
History of Present Illness H&P Date: 11/30/23 History of present illness; patient 58-year-old gentleman past medical history significant for hyperlipidemia presented to ER for complaint of chest pain and palpitation. Patient stated that he was all right yesterday when he started noticing that he was having chest pressure central location, nonradiating, no aggravating or relieving factors associated with this chest pain pressure. Patient also complaining of palpitation at that time and was feeling dizzy and lightheaded. There was no complaint of shortness of breath. Patient was going on nausea but no vomiting. Patient called one of his friends was a terrazzo mechanic helper and he came and checked his heart rate and found it to be irregular and told him to come to the ER. Initial lab work done in the ER showed WBC 10.4, hemoglobin 16.8, platelet count 252 sodium 142, potassium 3.9, BUN 21, creatinine 1.10, glucose 107, troponin 0.017 lipase 159 EKG done in the ER showed heart rate of 90, irregular in rate and rhythm, no ST segment elevation or depression seen, no T-wave inversions seen. Chest x-ray done in the ER showed no acute cardiopulmonary abnormal Patient admitted to internal medicine service REVIEW OF SYSTEMS: CONSTITUTIONAL: No fever, no malaise, no fatigue. HEENT: No recent visual problems or hearing problems. Denied any sore throat. CARDIOVASCULAR: As mentioned HPI PULMONARY: As mentioned HPI GASTROINTESTINAL: No diarrhea, no abdominal pain. NEUROLOGICAL: No headaches, no weakness, no numbness. HEMATOLOGICAL: Denies any bleeding or petechiae. GENITOURINARY: Denies any burning micturition, frequency, or urgency. MUSCULOSKELETAL/RHEUMATOLOGICAL: Denies any joint pain, swelling, or any muscle pain. ENDOCRINE: Denies any polyuria or polydipsia. The rest of the 14-point review of systems is negative. PHYSICAL EXAMINATION: GENERAL: The patient is alert and oriented x3, not in any acute distress. Well developed, well nourished. HEENT: Pupils are round and equally reacting to light. EOMI. No scleral icterus. No conjunctival pallor. Normocephalic, atraumatic. No pharyngeal erythema. No thyromegaly. CARDIOVASCULAR: S1 and S2 present. No murmurs, rubs, or gallops. Irregular rhythm and rate PULMONARY: Chest is clear to auscultation, no wheezing or crackles. ABDOMEN: Soft, nontender, nondistended, normoactive bowel sounds. No palpable organomegaly. MUSCULOSKELETAL: No joint swelling or deformity. EXTREMITIES: No cyanosis, clubbing, or pedal edema. NEUROLOGICAL: Gross neurological examination did not reveal any focal deficits. SKIN: No rashes. Assessment and plan Chest pain, acute coronary syndrome ruled out New onset paroxysmal atrial fibrillation Obstructive sleep apnea on CPAP Seasonal allergies Remote history of tobacco use and dependence Monitor vital signs Monitor CBC Monitor CMP Continue telemetry monitoring 2D echo ordered Patient was initially on heparin drip but later transitioned to Xarelto. Patient was on Cardizem drip later was discontinued as patient converted to no rmal sinus rhythm Cardiology consulted Labs and medication were reviewed.. Continue same treatment. Continue with symptomatic treatment. Resume home medication. Monitor labs and vitals. DVT and GI prophylaxis. Further recommendations as per clinical course of the patient Dictation was produced using [employer] dictation software. please excuse any grammatical, word or spelling errors. Past Medical History Past Medical History: No Reported History Additional Past Medical History / Comment(s): SEASONAL ALLERGIES. PT HAD RLE I NJURY WITH STAPH INFECTION (SUSPECTED MRSA) IN 2017-WAS ON VANCOMYCIN FOR 5 DAYS. History of Any Multi-Drug Resistant Organisms: None Reported Past Surgical History: Appendectomy, Back Surgery, Orthopedic Surgery Additional Past Surgical History / Comment(s): bilat knee x 6, c5-6 fusion 1999, right rotator cup, deviated septum rx, Past Anesthesia/Blood Transfusion Reactions: Family Hisory of Malignant Hyperthermia, Postoperative Nausea & Vomiting (PONV) Additional Past Anesthesia/Blood Transfusion Reaction / Comment(s): PT HAS HAD ANESTHESIA WITH NO PROBLEMS Past Psychological History: No Psychological Hx Reported Smoking Status: Former smoker Past Alcohol Use History: Rare Additional Past Alcohol Use History / Comment(s): QUIT SMOKING 17 YEARS AGO Past Drug Use History: None Reported - Past Family History Mother Family Medical History: No Reported History Father Family Medical History: Cancer Medications and Allergies Home Medications Medication Instructions Recorded Confirmed Type Cetirizine HCl 10 mg PO DAILY PRN 11/29/21 11/29/23 History Azelastine HCl [Astelin Nasal 1 spray EA NOSTRIL DAILY 11/29/23 11/29/23 History [place]] Naproxen [EC-Naprosyn] 500 mg PO BID PRN 11/29/23 11/29/23 History Pantoprazole [Protonix] 40 mg PO BID 11/29/23 11/29/23 History Pravastatin Sodium [Pravachol] 20 mg PO DAILY 11/29/23 11/29/23 History Tamsulosin [Flomax] 0.4 mg PO DAILY 11/29/23 11/29/23 History Testosterone [Androgel 1.62%] 2 pump TRANSDERM DAILY 11/29/23 11/29/23 History Allergies Allergy/AdvReac Type Severity Reaction Status Date / Time Iodinated Contrast Media Allergy Anaphylaxis Verified 11/29/23 22:48 [Iodinated Contrast Media - IV Dye] codeine AdvReac Nausea & Verified 11/29/23 22:48 Vomiting FAMILY HX MALIGNANT AdvReac Unknown Uncoded 11/29/23 20:53 HYPERTHERMIA Physical Exam Vitals: Vital Signs Temp Pulse Pulse Resp BP BP Pulse Ox 11/30/23 04:00 54 L 18 118/71 98 11/29/23 23:49 98 F 70 18 131/81 98 11/29/23 23:26 75 18 140/88 98 11/29/23 22:51 68 18 149/82 98 11/29/23 21:09 110 H 16 143/93 96 11/29/23 20:51 97.3 F L 70 20 116/81 96 Intake and Output 11/29/23 11/30/23 11/30/23 22:59 06:59 14:59 Intake Total 90.526 420 Balance 90.526 420 Intake: Intake, IV Titration 90.526 Amount Diltiazem 125 mg In 25.5 Sodium Chloride 0.9% 100 ml @ 5 MG/HR 5 mls/hr IV .Q24H [facility] Rx#:[id number] Heparin Sod,Pork in 0.45% 65.026 NaCl 25,000 unit In 0.45 % NaCl 1 250ml.bag @ 8.02 UNITS/KG/HR 10.004 mls/ hr IV .Q24H MONICA Rx#: [id number] Oral 420 Other: # Voids 1 1 Weight 124.738 kg 124.738 kg Results CBC & Chem 7: 11/30/23 04:17 11/30/23 04:17 Labs: Abnormal Lab Results - Last 24 Hours (Table) 11/29/23 11/29/2311/29/24 Range/Units 21:09 21:09 04:17 PT 9.7 L (10.0-12.5) sec APTT 30.9 H (22.0-30.0) sec Chloride 108 H (98-107) mmol/L BUN 21 H (9-20) mg/dL Glucose 107 H (74-99) mg/dL 11/30/23 Range/Units 04:17 PT (10.0-12.5) sec APTT (22.0-30.0) sec Chloride 109 H (98-107) mmol/L BUN 22 H (9-20) mg/dL Glucose 125 H (74-99) mg/dL Thrombosis Risk Factor Assmnt - Choose All That Apply Any of the Below Risk Factors Present?: Yes Each Factor Represents 1 point: Age 41-60 years Thrombosis Risk Factor Assessment Total Risk Factor Score: 1 Thrombosis Risk Factor Assessment Level: Low Risk
--- NOTE | 2023-12-01 10:32 | P.PN ---
Subjective Progress Note Date: 12/01/23 History of present illness: This is a 58-year-old male with past medical history of seasonal allergies, KALIA on CPAP, remote history of tobacco use and dependence. Patient states that yesterday in the afternoon he was not feeling very well had some pressure in his chest and his heart felt like it was fast and irregular. He had some dizziness felt tired and sweaty and then he developed some indigestion. He had some nausea without vomiting. No syncopal episode. He contacted a friend who is a certified ski patroller and he checked his blood pressure which was a systolic of 164 and the certified ski patroller thought he was in atrial fibrillation. He has never had this in the past. He came in to [facility] to be evaluated and was found to be in A-fib and started on heparin drip and Cardizem drip. Cardizem drip has been placed on hold due to bradycardia. He subsequently converted to sinus rhythm after our evaluation. He states he still has some shortness of breath. He complains of sinus problems. Patient was a smoker and quit 10 years ago. He drinks 2 cups of coffee per day. Rare alcohol use. EKG atrial fibrillation with ventricular rate of 90 bpm Chest x-ray: No acute process CBC INR normal. Sodium 139, potassium 4.3, chloride 109, CO2 22, BUN 22 creatinine 0.8. Blood sugar 125. Calcium phosphorus normal. Magnesium 2.1. Liver function tests are within normal limits. Troponin negative x 3. Lipase 159. Home cardiac medications: Pravastatin 20 mg daily. Cardiac catheterization performed by Dr. Masterson on 06/25/2019 at [facility] revealed normal coronary arteries, elevated LVEDP. Echocardiogram performed in the office on 09/22/2020 revealed EF 55%, mild left ventricular hypertrophy, mild mitral digitation, mild tricuspid regurgitation. 11/30 TSH 3.36. Patient has converted as of yesterday morning to sinus rhythm and was cleared for discharge pending echocardiogram. Echocardiogram has been obtained and report is pending. Patient is noted drop in the 30s when he sleeping. He feels a little faint this morning. No palpitations no chest pain. Blood pressure 149/83, heart rate 67, pulse ox 90% on room air. Telemetry is sinus rhythm. Physical examination: Gen: This is a 58-year-old male in no acute distress. VS: reviewed HEENT: Head is atraumatic, normocephalic. Pupils equal, round. Sclerae is anicteric. NECK: Supple. No JVD. LUNGS: Clear to auscultation. No wheezes or rhonchi. No intercostal retractions. HEART: Regular rate and rhythm. No murmur. ABDOMEN: Soft No tenderness. EXTREMITIES: No pedal edema. No calf tenderness. NEUROLOGICAL: Patient is awake, alert and oriented x3. Assessment: Chest pain, acute coronary syndrome ruled out New onset paroxysmal atrial fibrillation, currently in sinus rhythm Obstructive sleep apnea on CPAP Seasonal allergies Remote history of tobacco use and dependence Plan: Continue patient's home cardiac medications Continue patient on Xarelto 20 mg daily If echocardiogram is unremarkable, patient is cleared for discharge from cardiology and may follow-up in the office with Dr. Masterson in 1 to 2 weeks. Thank you kindly for this consultation. Nurse practitioner note has been reviewed, I agree with documented findings and plan of care. Patient was seen and examined. Objective - Vital Signs Vital signs: Vital Signs Temp 98.2 F 12/01/23 03:27 Pulse 52 L 12/01/23 03:27 Resp 19 12/01/23 03:27 BP 123/71 12/01/23 03:27 Pulse Ox 95 12/01/23 03:27 FiO2 Intake & Output 11/30/23 12/01/23 12/01/23 18:59 06:59 18:59 Intake Total 1200 120 240 Balance 1200 120 240 Intake: Oral 1200 120 240 Other: # Voids 1 1 - Labs CBC & Chem 7: 11/30/23 04:17 11/30/23 04:17
--- NOTE | 2023-12-01 10:43 | CA ---
Transthoracic Echo Report Name: Jorden Guillen Age: 58 Gender: M : 1965 Exam Date: 11/30/2023 09:17 Exam Location: [facility] Ht (in): 73 Wt (lb): 275 Ordering Physician: Sherice Ma Attending/Referring Phys: [id number], Francesca Water Treatment Specialist Shaun García RDCS Procedure CPT: Indications: LVF Cardiac Hx: Technical Quality: Contrast 1: Definity Total Dose (mL): 2 Contrast 2: Total Dose (mL): MEASUREMENTS (Male / Female) Normal Values 2D ECHO LV Diastolic Diameter PLAX 5.4 cm 4.2 - 5.9 / 3.9 - 5.3 cm LV Systolic Diameter PLAX 4.1 cm IVS Diastolic Thickness 1.1 cm 0.6 - 1.0 / 0.6 - 0.9 cm LVPW Diastolic Thickness 1.2 cm 0.6 - 1.0 / 0.6 - 0.9 cm LV Relative Wall Thickness 0.4 LVOT Diameter 2.5 cm Aortic Root Diameter 3.8 cm LA Systolic Diameter LX 5.2 cm 3.0 - 4.0 / 2.7 - 3.8 cm DOPPLER AV Peak Velocity 136.2 cm/s AV Peak Gradient 7.4 mmHg AV Mean Velocity 92.4 cm/s AV Mean Gradient 3.8 mmHg AV Velocity Time Integral 27.7 cm LVOT Peak Velocity 115.9 cm/s LVOT Peak Gradient 5.4 mmHg LVOT Velocity Time Integral 26.0 cm LVOT Stroke Volume 122.6 cm??? LVOT Stroke Volume Index 49.8 ml/m??? LVOT Cardiac Index 3044.4 cm???/min???m??? AV Area Cont Eq vti 4.4 cm??? AV Area Cont Eq pk 4.0 cm??? MV Area PHT 3.6 cm??? Mitral E Point Velocity 80.6 cm/s Mitral A Point Velocity 57.6 cm/s Mitral E to A Ratio 1.4 MV Deceleration Time 208.2 ms TR Peak Velocity 187.1 cm/s TR Peak Gradient 14.0 mmHg PV Peak Velocity 77.5 cm/s PV Peak Gradient 2.4 mmHg FINDINGS Left Ventricle Left ventricular ejection fraction is estimated at 50-55%. Normal Left ventricular size, wall thickness, systolic function with no obvious regional wall motion abnormalities. Right Ventricle Normal right ventricular size. Right Atrium Normal right atrial size. Left Atrium Mildly increased left atrial diameter. Mitral Valve Trace mitral regurgitation. Aortic Valve Aortic valve not well visualized. Tricuspid Valve Trace to mild tricuspid regurgitation. Pulmonic Valve No pulmonic regurgitation. Pericardium No pericardial effusion. Aorta Normal size aortic root . CONCLUSIONS Technically difficult study for interpretation Normal LV systolic function Previewed by: Dr. Joshua Masterson MD (Electronically Signed) Final Date: 01 December 2023 10:42
--- NOTE | 2023-12-01 10:47 | XR ---
EXAMINATION TYPE: XR chest 2V DATE OF EXAM: 12/01/2023 COMPARISON: NONE HISTORY: Shortness of breath. TECHNIQUE: Frontal and lateral views of the chest are obtained. FINDINGS: There is no focal air space opacity, pleural effusion, or pneumothorax seen. The cardiac silhouette size is within normal limits. The osseous structures are intact. IMPRESSION: No acute cardiopulmonary process.
[2023-12-01] MEDS: ALPRAZolam 0.25 MG TAB PO STA (11:04)
[2023-12-01] MEDS: ACETAMINOPHEN TAB 325 MG TAB PO PRN (11:04)
[2023-12-01] MEDS: polyethylene glycoL 3350 17 GM POWD.PACK PO SCH (11:05)
--- NOTE | 2023-12-01 12:33 | P.DS ---
Providers Date of admission: 11/29/23 22:08 Expected date of discharge: 12/01/23 Attending physician: Marcy Knox Consults: 11/29/23 22:06 Consult Physician Routine Consulting Provider: Joshua Masterson Consult Reason/Comments: known Do you want consulting provider notified?: Yes Primary care physician: Jewell August Hospital Course: Discharge diagnoses; Chest pain, acute coronary syndrome ruled out New onset paroxysmal atrial fibrillation Obstructive sleep apnea on CPAP Seasonal allergies Remote history of tobacco use and dependence Hospital course; patient 58-year-old gentleman past medical history significant for hyperlipidemia presented to ER for complaint of chest pain and palpitation. Patient stated that he was all right yesterday when he started noticing that he was having chest pressure central location, nonradiating, no aggravating or relieving factors associated with this chest pain pressure. Patient also complaining of palpitation at that time and was feeling dizzy and lightheaded. There was no complaint of shortness of breath. Patient was going on nausea but no vomiting. Patient called one of his friends was a code and test clerk and he came and checked his heart rate and found it to be irregular and told him to come to the ER. Initial lab work done in the ER showed WBC 10.4, hemoglobin 16.8, platelet count 252 sodium 142, potassium 3.9, BUN 21, creatinine 1.10, glucose 107, troponin 0.017 lipase 159 EKG done in the ER showed heart rate of 90, irregular in rate and rhythm, no ST segment elevation or depression seen, no T-wave inversions seen. Chest x-ray done in the ER showed no acute cardiopulmonary abnormal Patient admitted to internal medicine service 11/30. Patient seen and examined. Cardiology recommended doing 2D echo and keeping patient on Xarelto. 2D echo done showed normal LV systolic function, no wall motion abnormality. Cardiology recommended keeping patient on Xarelto, no beta-blockers at this time because of patient heart rate being in the 50s to early 60s PHYSICAL EXAMINATION: GENERAL: The patient is alert and oriented x3, not in any acute distress. Well developed, well nourished. HEENT: Pupils are round and equally reacting to light. EOMI. No scleral icterus. No conjunctival pallor. Normocephalic, atraumatic. No pharyngeal erythema. No thyromegaly. CARDIOVASCULAR: S1 and S2 present. No murmurs, rubs, or gallops. PULMONARY: Chest is clear to auscultation, no wheezing or crackles. ABDOMEN: Soft, nontender, nondistended, normoactive bowel sounds. No palpable organomegaly. MUSCULOSKELETAL: No joint swelling or deformity. EXTREMITIES: No cyanosis, clubbing, or pedal edema. NEUROLOGICAL: Gross neurological examination did not reveal any focal deficits. SKIN: No rashes. Dictation was produced using [employer] dictation software. please excuse any grammatical, word or spelling errors. Patient Condition at Discharge: Good Plan - Discharge Summary Discharge Rx Participant: No New Discharge Prescriptions: New Rivaroxaban [Xarelto] 20 mg PO W/SUPPER #30 tab Continue Cetirizine HCl 10 mg PO DAILY PRN PRN Reason: Allergy Symptoms Pantoprazole [Protonix] 40 mg PO BID Testosterone [Androgel 1.62%] 2 pump TRANSDERM DAILY Tamsulosin [Flomax] 0.4 mg PO DAILY Pravastatin Sodium [Pravachol] 20 mg PO DAILY Azelastine HCl [Astelin Nasal [place]] 1 spray EA NOSTRIL DAILY Discontinued Naproxen [EC-Naprosyn] 500 mg PO BID PRN PRN Reason: Pain Discharge Medication List Cetirizine HCl 10 mg PO DAILY PRN 11/29/21 [History] Azelastine HCl [Astelin Nasal [place]] 1 spray EA NOSTRIL DAILY 11/29/23 [History] Pantoprazole [Protonix] 40 mg PO BID 11/29/23 [History] Pravastatin Sodium [Pravachol] 20 mg PO DAILY 11/29/23 [History] Tamsulosin [Flomax] 0.4 mg PO DAILY 11/29/23 [History] Testosterone [Androgel 1.62%] 2 pump TRANSDERM DAILY 11/29/23 [History] Rivaroxaban [Xarelto] 20 mg PO W/SUPPER #30 tab 12/01/23 [Rx] Follow up Appointment(s)/Referral(s): Joshua Masterson MD [STAFF PHYSICIAN] - 2 Weeks Jewell August MD [Primary Care Provider] - 1-2 days
[2023-12-01 13:45] VITALS: BP 124/72; PULSE 55; RESP 20; TEMP 97.9
[2023-12-02] MEDS ORDERED: polyethylene glycoL 3350 17 GM POWD.PACK PO SCH (09:00)
== END 2023-12-01 14:03 | disposition home or self-care (01) ==
LOC: EC 20:48 → 3SCARD 22:08 → INTOOBSV 22:08 → 3SCARD 23:33
PROVIDERS: ADMIT Hospitalist; ATTEND Hospitalist
DX: R07.9 Chest pain, unspecified (principal); I48.0 Paroxysmal atrial fibrillation; J30.2 Other seasonal allergic rhinitis; G47.33 Obstructive sleep apnea (adult) (pediatric); Z87.891 Personal history of nicotine dependence; Z79.01 Long term (current) use of anticoagulants; Z79.899 Other long term (current) drug therapy; Z88.5 Allergy status to narcotic agent
CPT/HCPCS: 96376; 96374; 96375; 99291; 36415; 93005; 93306; 83880; 80053 ×2; 84443; 83690; 83735 ×2; 84100; 84484 ×2; 85025 ×2; 85610 ×2; 85730 ×2; 71046 ×2; G0378 ×3; J2270 ×2; Q9957; J1644 ×3

== ENCOUNTER 2023-12-05 19:17 | Observation (INO) | payer OTHER ==
--- NOTE | 2023-12-05 19:33 | ED ---
Chest Pain HPI - General Chief Complaint: Chest Pain Stated Complaint: chest pain SOB Source: patient Mode of arrival: wheelchair Limitations: no limitations - History of Present Illness Initial Comments: 58-year-old male with a past medical history significant for A-fib on Xarelto 20 mg, KALIA on CPAP, seasonal allergies, presenting to the ED with a chief complaint of chest pain. Patient states approximately an hour ago was walking outside and started to experience chest pain with some associated palpitations, shortness of breath, and lightheadedness. Pain is in the middle of his chest. Describes it as a pressure. Does not radiate. Patient discharged from this facility on 12/01/2023 with similar symptoms. At that time was found to have new onset A- fib. States that he feels like he is back in A-fib. - Related Data Home Medications Medication Instructions Recorded Confirmed Cetirizine HCl 10 mg PO DAILY PRN 11/29/21 11/29/23 Azelastine HCl [Astelin Nasal 1 spray EA NOSTRIL DAILY 11/29/23 11/29/23 [place]] Pantoprazole [Protonix] 40 mg PO BID 11/29/23 11/29/23 Pravastatin Sodium [Pravachol] 20 mg PO DAILY 11/29/23 11/29/23 Tamsulosin [Flomax] 0.4 mg PO DAILY 11/29/23 11/29/23 Testosterone [Androgel 1.62%] 2 pump TRANSDERM DAILY 11/29/23 11/29/23 Previous Rx's Medication Instructions Recorded Rivaroxaban [Xarelto] 20 mg PO W/SUPPER #30 tab 12/01/23 Allergies Allergy/AdvReac Type Severity Reaction Status Date / Time Iodinated Contrast Media Allergy Anaphylaxis Verified 12/05/23 19:31 [Iodinated Contrast Media - IV Dye] codeine AdvReac Nausea & Verified 12/05/23 19:31 Vomiting FAMILY HX MALIGNANT AdvReac Unknown Uncoded 12/05/23 19:31 HYPERTHERMIA Review of Systems ROS Statement: Those systems with pertinent positive or pertinent negative responses have been documented in the HPI. ROS Other: All systems not noted in ROS Statement are negative. Past Medical History Past Medical History: No Reported History Additional Past Medical History / Comment(s): SEASONAL ALLERGIES. PT HAD RLE INJURY WITH STAPH INFECTION (SUSPECTED MRSA) IN 2017-WAS ON VANCOMYCIN FOR 5 DAYS. History of Any Multi-Drug Resistant Organisms: None Reported Past Surgical History: Appendectomy, Back Surgery, Orthopedic Surgery Additional Past Surgical History / Comment(s): bilat knee x 6, c5-6 fusion 1999, right rotator cup, deviated septum rx, Past Anesthesia/Blood Transfusion Reactions: Family Hisory of Malignant Hyperthermia, Postoperative Nausea & Vomiting (PONV) Additional Past Anesthesia/Blood Transfusion Reaction / Comment(s): PT HAS HAD ANESTHESIA WITH NO PROBLEMS Past Psychological History: No Psychological Hx Reported Smoking Status: Former smoker Past Alcohol Use History: Rare Past Drug Use History: None Reported - Past Family History Mother Family Medical History: No Reported History Father Family Medical History: Cancer General Exam - General Exam Comments Initial Comments: Visual Physical Exam Vital signs reviewed General: nontoxic Head: Normocephalic, atraumatic Eyes: PERRLA, EOMI ENT: Airway patent Skin: No visual rash, normal skin tone Neuro: Alert and oriented 3 Musculoskeletal: No gross abnormalities Limitations: no limitations Course Vital Signs 12/05/23 12/05/23 12/05/23 19:28 20:30 21:00 Temperature 97.6 F Pulse Rate 106 H 95 89 Respiratory 24 17 13 Rate Blood Pressure 142/97 146/125 117/77 O2 Sat by Pulse 98 96 93 L Oximetry 12/05/23 12/05/23 12/05/23 21:30 22:00 22:26 Temperature Pulse Rate 87 86 80 Respiratory 16 18 16 Rate Blood Pressure 114/73 109/73 126/83 O2 Sat by Pulse 95 95 96 Oximetry 12/05/23 23:00 Temperature Pulse Rate 75 Respiratory 18 Rate Blood Pressure 128/88 O2 Sat by Pulse 97 Oximetry - Reevaluation(s) Reevaluation #1: 12/05/23 20:27 Patient reevaluated, currently on the monitor in sinus rhythm at a rate of 96 bpm. Chest Pain MDM - MDM Quicknote portion performed. Signed Frankie Allen PA-C Was pt. sent in by a medical professional or institution ([facility] Judge, SALES AND LEASING CONSULTANT, urgent care, hospital, or residential...) When possible be specific @ -No Did you speak to anyone other than the patient for history (EMS, parent, family, police, friend...)? What history was obtained from this source @ -No Did you review nursing and triage notes (agree or disagree)? Why? @ -I reviewed and agree with nursing and triage notes Were old charts reviewed (outside hosp., previous admission, EMS record, old EKG, old radiological studies, urgent care reports/EKG's, residential records)? Report findings @ -I initially performed a quick note while in triage. Reviewed prior notes showing patient recently discharge from this facility with a prescription for Xarelto 20 mg after being found to be in new onset A-fib. Differential Diagnosis (chest pain, altered mental status, abdominal pain women, abdominal pain men, vaginal bleeding, weakness, fever, dyspnea, syncope, headache, dizziness, GI bleed, back pain, seizure, CVA, palpatations, mental health, musculoskeletal)? @ -Not applicable EKG interpreted by me (3pts min.). @ -EKG interpreted by me showing A-fib with RVR 138 bpm. QRS 303/384 X-rays interpreted by me (1pt min.). @ -Chest x-ray interpreted by me which revealed no evidence of acute finding. CT interpreted by me (1pt min.). @ -None done U/S interpreted by me (1pt. min.). @ -None done What testing was considered but not performed or refused? (CT, X-rays, U/S, labs)? Why? @ -None What meds were considered but not given or refused? Why? @ -None Did you discuss the management of the patient with other professionals (professionals i.e. , PA, SALES AND LEASING CONSULTANT, lab, RT, psych nurse, social media campaign manager, rehab department manager, teacher, sea air land officer, medical case manager)? Give summary @ -Case discussed with Darshana who accepts admission to [facility]. Was smoking cessation discussed for >3mins.? @ -No Was critical care preformed (if so, how long)? @ -No Were there social determinants of health that impacted care today? How? (Homelessness, low income, unemployed, alcoholism, drug addiction, transportation, low edu. Level, literacy, decrease access to med. care, custodial, rehab)? @ -No Was there de-escalation of care discussed even if they declined (Discuss DNR or withdrawal of care, Hospice)? DNR status @ -No What co-morbidities impacted this encounter? (DM, HTN, Smoking, COPD, CAD, Cancer, CVA, ARF, Chemo, Hep., AIDS, mental health diagnosis, sleep apnea, morbid obesity)? @ -A-fib, obesity Was patient admitted / discharged? Hospital course, mention meds given and route, prescriptions, significant lab abnormalities, going to OR and other pertinent info. @ -Admission 58-year-old male recently seen at this facility and discharged home on Xarelto 20 mg after being found to have new onset A-fib with RVR presenting to the ED with complaints of chest pain, lightheadedness, palpitations, and headache approximately an hour prior to arrival. Patient states that he felt like he was back in A-fib. Initial EKG did show A-fib with RVR at 138 bpm. Patient monitored here in the ED and he spontaneously flips between A-fib and a sinus rhythm. Rate controlled currently in the 90s. Laboratory studies reviewed. CBC CMP largely unremarkable. Troponin x 2 undetectable. Chest x-ray revealed no evidence of acute finding. Patient will be admitted to observation with consult to cardiology. Undiagnosed new problem with uncertain prognosis? @ -No Drug Therapy requiring intensive monitoring for toxicity (Heparin, Nitro, Insulin, Cardizem)? @ -No Were any procedures done? @ -No Diagnosis/symptom? @ -A-fib, chest pain Acute, or Chronic, or Acute on Chronic? @ -Acute Uncomplicated (without systemic symptoms) or Complicated (systemic symptoms)? @ -Complicated Side effects of treatment? @ -No Exacerbation, Progression, or Severe Exacerbation? @ -No Poses a threat to life or bodily function? How? (Chest pain, [place], [place], pneumonia, PE, COPD, DKA, ARF, appy, cholecystitis, CVA, Diverticulitis, Homicidal, Suicidal, threat to staff... and all critical care pts) @ -Possibly Disposition Clinical Impression: Chest pain, Afib Disposition: ADMITTED IP TO THIS HOSP Condition: Good Referrals: Jewell August MD [Primary Care Provider] - 1-2 days Time of Disposition: 23:00
[2023-12-05 20:16] LABS: Basophils # (A) 0.1 k/uL (0-0.2); Basophils % (A) 1 %; Eosinophils # (A) 0.3 k/uL (0-0.7); Eosinophils % (A) 3 %; HCT 51.6 % (39.0-53.0); HGB 17.6 gm/dL (13.0-17.5); Lymphocytes # (A) 2.1 k/uL (1.0-4.8); Lymphocytes % (A) 19 %; MCH 32.4 pg (25.0-35.0); MCHC 34.1 g/dL (31.0-37.0); MCV 95.1 fL (80.0-100.0); Mean Platelet Volume 6.8; Monocytes # (A) 0.7 k/uL (0-1.0); Monocytes % (A) 6 %; Neutrophils # (A) 8.1 k/uL (1.3-7.7); Neutrophils % (A) 70 %; Platelet Count 272 k/uL (150-450); RBC 5.43 m/uL (4.30-5.90); RDW 12.6 % (11.5-15.5); WBC 11.4 k/uL (3.8-10.6)
[2023-12-05 20:27] LABS: ALT 39 U/L (4-49); AST 33 U/L (17-59); African American GFR (CKD) >90 (>60 ml/min/1.73 sqM); Albumin 4.6 g/dL (3.5-5.0); Alkaline Phosphatase 69 U/L (38-126); Anion Gap 12 mmol/L; Blood Urea Nitrogen 20 mg/dL (9-20); Calcium 9.8 mg/dL (8.4-10.2); Carbon Dioxide 21 mmol/L (22-30); Chloride 107 mmol/L (98-107); Glucose 160 mg/dL (74-99); Magnesium 1.9 mg/dL (1.6-2.3); Non-African American GFR(CKD) >90 (>60 ml/min/1.73 sqM); Potassium 4.1 mmol/L (3.5-5.1); Sodium 140 mmol/L (137-145); Total Bilirubin 0.6 mg/dL (0.2-1.3)
[2023-12-05 20:29] LABS: Partial Thromboplastin Time 29.1 sec (22.0-30.0); Prothrombin Time 11.2 sec (10.0-12.5)
--- NOTE | 2023-12-05 21:29 | XR ---
EXAMINATION TYPE: XR chest 2V DATE OF EXAM: 12/05/2023 8:09 PM CLINICAL INDICATION:Male, 58 years old with history of Chest Pain; [facility] COMPARISON: 12/01/2023 TECHNIQUE: XR chest 2V. Frontal and lateral views of the chest.. FINDINGS: Lines/Tubes/Devices: No indwelling lines are seen. Heart/mediastinum: Heart size is normal. Mediastinum appears normal. Pulmonary vascularity: Not increased, Lungs/Pleura: Lung volumes are diminished, with crowding of lung markings and minor bibasilar opaciti es likely on the basis of atelectasis. Otherwise no definite confluent consolidative process, sizable effusion, or pneumothorax is shown Musculoskeletal: No acute osseous abnormality demonstrated in the limits of the exam. There is ACDF hardware in the lower cervical spine. Other findings: None. IMPRESSION: Low lung volume exam with hypoventilatory changes. Otherwise no acute finding.
[2023-12-05] MEDS: MORPHINE SULFATE 4 MG/ML SYRINGE IVP STA (22:19)
[2023-12-05] MEDS: ACETAMINOPHEN TAB 500 MG TAB PO STA (22:25)
[2023-12-05] MEDS ORDERED: HYDROmorphone 1 MG/ML 1 ML SYRINGE IVP PRN (23:24)
[2023-12-05] MEDS ORDERED: NALOXONE 0.4 MG/ML 1 ML VIAL IV PRN (23:24)
[2023-12-05] MEDS ORDERED: ONDANSETRON 4 MG/2 ML VIAL IVP PRN (23:24)
[2023-12-06] MEDS: HYDROmorphone 0.5 MG/0.5 ML SYRINGE IVP PRN (01:29)
[2023-12-06] MEDS: SODIUM CHLORIDE 0.9% 1,000 ML IV SCH (03:32)
--- NOTE | 2023-12-06 10:22 | P.CRDCN ---
History of Present Illness Consult date: 12/06/23 History of present illness: History of present illness: This is a 58-year-old male with past medical history of seasonal allergies, KALIA on CPAP, remote history of tobacco use and dependence and recently diagnosed with paroxysmal atrial fibrillation. We have been asked to evaluate the patient for chest pain. Patient had a recent hospitalization 11/28-11/30 at which time he was seen by cardiology diagnosed with paroxysmal atrial fibrillation, chest pain and acute coronary syndrome was ruled out. Patient was discharged home on Xarelto, no beta-jenifer due to bradycardia down to the 30s. Patient states that yesterday around 6 or 630 he was walking in the driveway and he developed symptoms like those he had with atrial fibrillation but more severe he was short of breath, tightness in his chest and a pounding. His heart was irregular and running in the 120s. He checked his blood pressure and it was 172/82 and his heart rate by that time was 112. He did have pressure in his chest like someone was sitting on his chest. He states he has been taking all of his medications as directed. Patient was a smoker and quit 10 years ago. He drinks 2 cups of coffee per day. Rare alcohol use. EKG atrial fibrillation with ventricular rate of 138 bpm, telemetry is sinus rhythm Chest x-ray: No acute process WBC 11.4, HGB 17.6, PLT 272. INR 1. Sodium 14, potassium 4.1, chloride 107, CO2 21, BUN 20 creatinine 0.75. Blood sugar 160. Calcium 9.8. Magnesium 1.9. Liver function tests are within normal limits. Troponin negative x 4. TSH obtained on 11/29 was 3.36. Home cardiac medications: Pravastatin 20 mg daily, xarelto 20 mg daily. Cardiac catheterization performed by Dr. Masterson on 06/25/2019 at [facility] revealed normal coronary arteries, elevated LVEDP. Echocardiogram performed on 11/30/2023 revealed EF 50-55%, trace to mild tricuspid regurgitation. Review Of Systems: At the time of my exam: CONSTITUTIONAL: Denies fever or chills. HEENT: Denies blurred vision, vision changes, or eye pain. Denies hemoptysis CARDIOVASCULAR: Denies chest pain. Denies orthopnea. Denies PND. Denies palpitations RESPIRATORY: No cough, no shortness of breath. GASTROINTESTINAL: Denies abdominal pain. Denies nausea or vomiting. HEMATOLOGIC: Denies bleeding disorders. GENITOURINARY: Denies any blood in urine. SKIN: Denies pruitis. Denies rash. Physical examination: Gen: This is a 58-year-old male in no acute distress. VS: reviewed blood pressure HEENT: Head is atraumatic, normocephalic. Pupils equal, round. Sclerae is anicteric. NECK: Supple. No JVD. LUNGS: Clear to auscultation. No wheezes or rhonchi. No intercostal retractions. HEART: Irregular rate and rhythm. No murmur. ABDOMEN: Soft No tenderness. EXTREMITIES: No pedal edema. No calf tenderness. NEUROLOGICAL: Patient is awake, alert and oriented x3. Assessment: Chest pain, acute coronary syndrome ruled out New onset paroxysmal atrial fibrillation Obstructive sleep apnea on CPAP Seasonal allergies Remote history of tobacco use and dependence Plan: Resume patient's home cardiac medications Schedule patient for exercise stress echo today Start patient on flecainide 50 mg twice daily If stress test is unremarkable, patient is cleared for discharge from cardiology and may follow-up in the office with Dr. Masterson in 1 to 2 weeks. Thank you kindly for this consultation. Nurse practitioner note has been reviewed, I agree with documented findings and plan of care. Patient was seen and examined. Past Medical History Past Medical History: No Reported History Additional Past Medical History / Comment(s): SEASONAL ALLERGIES. PT HAD RLE INJURY WITH STAPH INFECTION (SUSPECTED MRSA) IN 2017-WAS ON VANCOMYCIN FOR 5 DAYS. History of Any Multi-Drug Resistant Organisms: None Reported Past Surgical History: Appendectomy, Back Surgery, Orthopedic Surgery Additional Past Surgical History / Comment(s): bilat knee x 6, c5-6 fusion 1999, right rotator cup, deviated septum rx, Past Anesthesia/Blood Transfusion Reactions: Family Hisory of Malignant Hyperthermia, Postoperative Nausea & Vomiting (PONV) Additional Past Anesthesia/Blood Transfusion Reaction / Comment(s): PT HAS HAD ANESTHESIA WITH NO PROBLEMS Past Psychological History: No Psychological Hx Reported Smoking Status: Former smoker Past Alcohol Use History: Rare Past Drug Use History: None Reported - Past Family History Mother Family Medical History: No Reported History Father Family Medical History: Cancer Medications and Allergies Home Medications Medication Instructions Recorded Confirmed Type Cetirizine HCl 10 mg PO DAILY PRN 11/29/21 12/06/23 History Azelastine HCl [Astelin Nasal 1 spray EA NOSTRIL DAILY 11/29/23 12/06/23 History [place]] Pantoprazole [Protonix] 40 mg PO BID 11/29/23 12/06/23 History Pravastatin Sodium [Pravachol] 20 mg PO DAILY 11/29/23 12/06/23 History Tamsulosin [Flomax] 0.4 mg PO DAILY 11/29/23 12/06/23 History Testosterone [Androgel 1.62%] 2 pump TRANSDERM DAILY 11/29/23 12/06/23 History Rivaroxaban [Xarelto] 20 mg PO W/SUPPER #30 tab 12/01/23 12/06/23 Rx Allergies Allergy/AdvReac Type Severity Reaction Status Date / Time Iodinated Contrast Media Allergy Anaphylaxis Verified 12/06/23 08:23 [Iodinated Contrast Media - IV Dye] codeine AdvReac Nausea & Verified 12/06/23 08:23 Vomiting FAMILY HX MALIGNANT AdvReac Unknown Uncoded 12/05/23 19:31 HYPERTHERMIA Physical Exam Vitals: Vital Signs Temp Pulse Pulse Resp BP BP Pulse Ox 12/06/23 02:00 97.2 F L 60 20 118/76 98 12/05/23 23:00 75 18 128/88 97 12/05/23 22:26 80 16 126/83 96 12/05/23 22:00 86 18 109/73 95 12/05/23 21:30 87 16 114/73 95 12/05/23 21:00 89 13 117/77 93 L 12/05/23 20:30 95 17 146/125 96 12/05/23 19:28 97.6 F 106 H 24 142/97 98 Intake and Output 12/05/23 12/06/23 12/06/23 22:59 06:59 14:59 Other: # Voids 1 Weight 127.006 kg Results 12/05/23 19:32 12/05/23 19:32 Cardiac Enzymes 12/05/23 12/05/23 12/05/23 Range/Units 19:32 19:32 22:02 AST 33 (17-59) U/L Troponin I <0.012 <0.012 (0.000-0.034) ng/mL 12/06/23 12/06/23 Range/Units 00:36 03:30 AST (17-59) U/L Troponin I <0.012 <0.012 (0.000-0.034) ng/mL Coagulation 12/05/23 Range/Units 19:32 PT 11.2 (10.0-12.5) sec APTT 29.1 (22.0-30.0) sec CBC 12/05/23 Range/Units 19:32 WBC 11.4 H (3.8-10.6) k/uL RBC 5.43 (4.30-5.90) m/uL Hgb 17.6 H (13.0-17.5) gm/dL Hct 51.6 (39.0-53.0) % Plt Count 272 (150-450) k/uL Comprehensive Metabolic Panel 12/05/23 Range/Units 19:32 Sodium 140 (137-145) mmol/L Potassium 4.1 (3.5-5.1) mmol/L Chloride 107 (98-107) mmol/L Carbon Dioxide 21 L (22-30) mmol/L BUN 20 (9-20) mg/dL Creatinine 0.75 (0.66-1.25) mg/dL Glucose 160 H (74-99) mg/dL Calcium 9.8 (8.4-10.2) mg/dL AST 33 (17-59) U/L ALT 39 (4-49) U/L Alkaline Phosphatase 69 (38-126) U/L Total Protein 8.0 (6.3-8.2) g/dL Albumin 4.6 (3.5-5.0) g/dL Current Medications Generic Name Dose Route Start Last Admin Trade Name Freq PRN Reason Stop Dose Admin Hydromorphone HCl 0.5 mg 12/05/23 23:24 12/06/23 05:35 Hydromorphone 0.5 Mg/0.5 Ml Syringe IVP 0.5 mg Q3HR PRN Administration Moderate Pain (Scale 4 to 6) Hydromorphone HCl 1 mg 12/05/23 23:24 Hydromorphone 1 Mg/Ml 1 Ml Syringe IVP Q3HR PRN Severe Pain (Scale 7 to 10) Sodium Chloride 1,000 mls @ 75 mls/hr 12/05/23 23:30 12/06/23 03:32 Saline 0.9% IV Not Given .[id number] MONICA Naloxone HCl 0.2 mg 12/05/23 23:24 Naloxone 0.4 Mg/Ml 1 Ml Vial IV Q2M PRN Opioid Reversal Ondansetron HCl 4 mg 12/05/23 23:24 Ondansetron 4 Mg/2 Ml Vial IVP Q8HR PRN Nausea And Vomiting Intake and Output 12/05/23 12/06/23 12/06/23 22:59 06:59 14:59 Other: # Voids 1 Weight 127.006 kg 12/05/23 19:32 12/05/23 19:32
[2023-12-06] MEDS: FLECAINIDE 50 MG TAB PO SCH (11:33)
--- NOTE | 2023-12-06 11:59 | P.HPIM ---
History of Present Illness 58-year-old pleasant male with history of obstructive sleep apnea CPAP machine came in with complaints of chest pressure-like sensation and excessive tiredness, was recently diagnosed with paroxysmal atrial fibrillation, at the time acute coronary syndromes were ruled out but did not get any stress test at the time patient was discharged home on Xarelto patient has a history of bradycardia with heart rate going down to 30s because of which patient was not discharged on beta-jenifer patient was complaining of tightness of the chest nonradiating no associated diaphoresis, at the time patient's heart rhythm was irregular and running in 120s with elevated blood pressure. Patient had any smoking use or alcohol abuse REVIEW OF SYSTEMS: CONSTITUTIONAL: No fever, no malaise, no fatigue. HEENT: No recent visual problems or hearing problems. Denied any sore throat. CARDIOVASCULAR: No orthopnea, PND,no syncope. PULMONARY: No shortness of breath, no cough, no hemoptysis. GASTROINTESTINAL: No diarrhea, no nausea, no vomiting, no abdominal pain. NEUROLOGICAL: No headaches, no weakness, no numbness. HEMATOLOGICAL: Denies any bleeding or petechiae. GENITOURINARY: Denies any burning micturition, frequency, or urgency. MUSCULOSKELETAL/RHEUMATOLOGICAL: Denies any joint pain, swelling, or any muscle pain. ENDOCRINE: Denies any polyuria or polydipsia. The rest of the 14-point review of systems is negative. PHYSICAL EXAMINATION: GENERAL: The patient is alert and oriented x3, not in any acute distress. Well d eveloped, well nourished. HEENT: Pupils are round and equally reacting to light. EOMI. No scleral icterus. No conjunctival pallor. Normocephalic, atraumatic. No pharyngeal erythema. No thyromegaly. CARDIOVASCULAR: S1 and S2 present. No murmurs, rubs, or gallops. PULMONARY: Chest is clear to auscultation, no wheezing or crackles. ABDOMEN: Soft, nontender, nondistended, normoactive bowel sounds. No palpable organomegaly. MUSCULOSKELETAL: No joint swelling or deformity. EXTREMITIES: No cyanosis, clubbing, or pedal edema. NEUROLOGICAL: Gross neurological examination did not reveal any focal deficits. SKIN: No rashes. Assessment and plan -Chest pain rule out acute coronary syndromes patient will undergo stress test today if that is negative patient will be discharged and his symptoms are probably secondary to paroxysmal atrial fibrillation -Paroxysmal A-fib patient will be started on flecainide patient will be continued on anticoagulation with Xarelto -Obstructive sleep apnea uses CPAP machine -Leukocytosis reactive without any evidence of infection If stress test is negative patient probably will be discharged today Past Medical History Past Medical History: No Reported History Additional Past Medical History / Comment(s): SEASONAL ALLERGIES. PT HAD RLE INJURY WITH STAPH INFECTION (SUSPECTED MRSA) IN 2017-WAS ON VANCOMYCIN FOR 5 DAYS. History of Any Multi-Drug Resistant Organisms: None Reported Past Surgical History: Appendectomy, Back Surgery, Orthopedic Surgery Additional Past Surgical History / Comment(s): bilat knee x 6, c5-6 fusion 1999, right rotator cup, deviated septum rx, Past Anesthesia/Blood Transfusion Reactions: Family Hisory of Malignant Hyperthermia, Postoperative Nausea & Vomiting (PONV) Additional Past Anesthesia/Blood Transfusion Reaction / Comment(s): PT HAS HAD ANESTHESIA WITH NO PROBLEMS Past Psychological History: No Psychological Hx Reported Smoking Status: Former smoker Past Alcohol Use History: Rare Past Drug Use History: None Reported - Past Family History Mother Family Medical History: No Reported History Father Family Medical History: Cancer Medications and Allergies Home Medications Medication Instructions Recorded Confirmed Type Cetirizine HCl 10 mg PO DAILY PRN 11/29/21 12/06/23 History Azelastine HCl [Astelin Nasal 1 spray EA NOSTRIL DAILY 11/29/23 12/06/23 History [place]] Pantoprazole [Protonix] 40 mg PO BID 11/29/23 12/06/23 History Pravastatin Sodium [Pravachol] 20 mg PO DAILY 11/29/23 12/06/23 History Tamsulosin [Flomax] 0.4 mg PO DAILY 11/29/23 12/06/23 History Testosterone [Androgel 1.62%] 2 pump TRANSDERM DAILY 11/29/23 12/06/23 History Rivaroxaban [Xarelto] 20 mg PO W/SUPPER #30 tab 12/01/23 12/06/23 Rx Allergies Allergy/AdvReac Type Severity Reaction Status Date / Time Iodinated Contrast Media Allergy Anaphylaxis Verified 12/06/23 08:23 [Iodinated Contrast Media - IV Dye] codeine AdvReac Nausea & Verified 12/06/23 08:23 Vomiting FAMILY HX MALIGNANT AdvReac Unknown Uncoded 12/05/23 19:31 HYPERTHERMIA Physical Exam Vitals: Vital Signs Temp Pulse Pulse Resp BP BP Pulse Ox 12/06/23 09:11 96 12/06/23 07:15 97.8 F 61 17 111/65 96 12/06/23 02:00 97.2 F L 60 20 118/76 98 12/05/23 23:00 75 18 128/88 97 12/05/23 22:26 80 16 126/83 96 12/05/23 22:00 86 18 109/73 95 12/05/23 21:30 87 16 114/73 95 12/05/23 21:00 89 13 117/77 93 L 12/05/23 20:30 95 17 146/125 96 12/05/23 19:28 97.6 F 106 H 24 142/97 98 Intake and Output 12/05/23 12/06/23 12/06/23 22:59 06:59 14:59 Intake Total 118 Balance 118 Intake: Oral 118 Other: # Voids 1 Weight 127.006 kg Results CBC & Chem 7: 12/05/23 19:32 12/05/23 19:32 Labs: Abnormal Lab Results - Last 24 Hours (Table) 12/05/23 12/05/23 Range/Units 19:32 19:32 WBC 11.4 H (3.8-10.6) k/uL Hgb 17.6 H (13.0-17.5) gm/dL Neutrophils # 8.1 H (1.3-7.7) k/uL Carbon Dioxide 21 L (22-30) mmol/L Glucose 160 H (74-99) mg/dL
--- NOTE | 2023-12-06 12:02 | P.DS ---
Providers Date of admission: 12/06/23 00:16 Attending physician: Marcy Knox Consults: 12/05/23 23:24 Consult Physician Urgent Consulting Provider: [facility] Consult Reason/Comments: chest pain, a-fib Do you want consulting provider notified?: Yes Primary care physician: Jewell August [facility] Course: 58-year-old pleasant male with history of obstructive sleep apnea CPAP machine came in with complaints of chest pressure-like sensation and excessive tiredness, was recently diagnosed with paroxysmal atrial fibrillation, at the time acute coronary syndromes were ruled out but did not get any stress test at the time patient was discharged home on Xarelto patient has a history of bradycardia with heart rate going down to 30s because of which patient was not discharged on beta-jenifer patient was complaining of tightness of the chest nonradiating no associated diaphoresis, at the time patient's heart rhythm was irregular and running in 120s with elevated blood pressure. Patient had any smoking use or alcohol abuse PHYSICAL EXAMINATION: GENERAL: The patient is alert and oriented x3, not in any acute distress. Well developed, well nourished. HEENT: Pupils are round and equally reacting to light. EOMI. No scleral icterus. No conjunctival pallor. Normocephalic, atraumatic. No pharyngeal erythema. No thyromegaly. CARDIOVASCULAR: S1 and S2 present. No murmurs, rubs, or gallops. PULMONARY: Chest is clear to auscultation, no wheezing or crackles. ABDOMEN: Soft, nontender, nondistended, normoactive bowel sounds. No palpable organomegaly. MUSCULOSKELETAL: No joint swelling or deformity. EXTREMITIES: No cyanosis, clubbing, or pedal edema. NEUROLOGICAL: Gross neurological examination did not reveal any focal deficits. SKIN: No rashes. Assessment and plan -Chest pain rule out acute coronary syndromes patient will undergo stress test today if that is negative patient will be discharged and his symptoms are probably secondary to paroxysmal atrial fibrillation -Paroxysmal A-fib patient will be started on flecainide patient will be continued on anticoagulation with Xarelto -Obstructive sleep apnea uses CPAP machine -Leukocytosis reactive without any evidence of infection If stress test is negative patient will be discharged and will risk prescribe flecainide for atrial fibrillation and he will continue his Xarelto and tiredness is secondary to A-fib Patient Condition at Discharge: Good Plan - Discharge Summary New Discharge Prescriptions: New Flecainide [Tambocor] 50 mg PO Q12HR #60 tab Continue Cetirizine HCl 10 mg PO DAILY PRN PRN Reason: Allergy Symptoms Pantoprazole [Protonix] 40 mg PO BID Testosterone [Androgel 1.62%] 2 pump TRANSDERM DAILY Rivaroxaban [Xarelto] 20 mg PO W/SUPPER #30 tab Tamsulosin [Flomax] 0.4 mg PO DAILY Pravastatin Sodium [Pravachol] 20 mg PO DAILY Azelastine HCl [Astelin Nasal [place]] 1 spray EA NOSTRIL DAILY Discharge Medication List Cetirizine HCl 10 mg PO DAILY PRN 11/29/21 [History] Azelastine HCl [Astelin Nasal [place]] 1 spray EA NOSTRIL DAILY 11/29/23 [History] Pantoprazole [Protonix] 40 mg PO BID 11/29/23 [History] Pravastatin Sodium [Pravachol] 20 mg PO DAILY 11/29/23 [History] Tamsulosin [Flomax] 0.4 mg PO DAILY 11/29/23 [History] Testosterone [Androgel 1.62%] 2 pump TRANSDERM DAILY 11/29/23 [History] Rivaroxaban [Xarelto] 20 mg PO W/SUPPER #30 tab 12/01/23 [Rx] Flecainide [Tambocor] 50 mg PO Q12HR #60 tab 12/06/23 [Rx] Follow up Appointment(s)/Referral(s): Joshua Masterson MD [STAFF PHYSICIAN] - 1 Week Jewell August MD [Primary Care Provider] - 3 Days Discharge Disposition: HOME SELF-CARE
--- NOTE | 2023-12-06 13:12 | CA ---
Stress Echo Report Jorden Guillen Age: 58 Gender: M : 1965 Exam Date: 12/06/2023 11:21 Exam Location: [facility] Ht (in): 75 Wt (lb): 285 Ordering Physician: Sherice Ma Referring Physician: Francesca GABRIEL C.O.D. Audit Clerk: Lara Aguilera RDCS Technologist Procedure CPT: Indication: Chest Pain ICD-9 Codes: Rhythm: Patient History: CHEST PAIN, DIFFICULTY IN BREATHING, PALPITATIONS, FAMILY HX OF HEART DISEASE, CARDIAC CATH Cardiac Medications: Medications in past 24 hours: Contrast: Definity Stress Results Protocol: Inder Total dose(mL): 3 Exercise Duration (min:sec): 9:[address] Depression (mm): Angina Score: Leung Score: METS: 10.3 Resting HR: 79 Resting BP: 128 / 80 Peak HR: 143 Peak BP: 197 / 87 Max Predicted HR: 163 88 % Max Predicted HR Target HR: 139 Double Product: 50290 Stress Summary: BP Response: Reason for Termination: MAX EXERTION/TARGET HR Cardiac Symptoms: CHEST PRESSURE ECG Analysis Resting ECG: Stress ECG: Arrhythmia: Echo Analysis Resting Echo: Peak Echo Analysis: MEASUREMENTS (Male/Female) Normal Values CONCLUSIONS Excellent exercise tolerance Chest discomfort in response to exercise Normal electrocardiogram in response to exercise Abnormal echocardiogram in response to exercise with apical hypokinesia Dr. Joshua Masterson MD (Electronically Signed) Final Date: 06 December 2023 13:11
[2023-12-06] MEDS ORDERED: ALPRAZolam 0.25 MG TAB PO PRN (13:22)
[2023-12-06] MEDS ORDERED: ALPRAZolam 0.5 MG TAB PO PRN (13:22)
[2023-12-06] MEDS ORDERED: NITROGLYCERIN SL TABS 0.4 MG TAB SUBLINGUAL PRN (13:22)
[2023-12-06] MEDS: ASPIRIN 325 MG TAB PO STA (13:46)
[2023-12-06] MEDS: ATORVASTATIN 80 MG TAB PO STA (13:46)
[2023-12-06] MEDS ORDERED: LIDOCAINE 1% INJ 10MG/ML (20 ML MDV) ONE (13:46)
[2023-12-06] MEDS ORDERED: VERAPAMIL 2.5 MG/ML 2 ML AMP ONE (13:47)
[2023-12-06] MEDS ORDERED: HEPARIN SODIUM 1,000 UN/ML (10ML VL) ONE (13:47)
[2023-12-06] MEDS ORDERED: fentaNYL (PF) 50 MCG/ML 2 ML AMP ONE (13:48)
[2023-12-06] MEDS ORDERED: diphenhydrAMINE 50 MG/ML 1 ML VIAL ONE (13:50)
[2023-12-06] MEDS ORDERED: methylPREDNISolone SOD SUCCI 125 MG/2 ML VIAL ONE (13:50)
[2023-12-06] MEDS: SODIUM CHLORIDE 0.9% 1,000 ML in EMPTY BAG 1 BAG IV ONE (13:51)
[2023-12-06] MEDS: diphenhydrAMINE 50 MG/ML 1 ML VIAL IVP ONE (14:30)
[2023-12-06] MEDS: LIDOCAINE 1% INJ 10MG/ML (20 ML MDV) SQ ONE (14:30)
[2023-12-06] MEDS: methylPREDNISolone SOD SUCCI 125 MG/2 ML VIAL IVP ONE (14:30)
[2023-12-06] MEDS: VERAPAMIL SYRINGE (5 MG/10 ML) INTRAARTER ONE (14:31)
[2023-12-06] MEDS: HEPARIN SODIUM 1,000 UN/ML (10ML VL) IVP ONE (14:36)
[2023-12-06] MEDS: MIDAZOLAM 2 MG/2 ML VIAL IVP ONE (14:36)
[2023-12-06] MEDS: fentaNYL (PF) 50 MCG/1 ML VIAL IVP ONE (14:38)
[2023-12-06] MEDS ORDERED: RX INFO: IV CONTRAST WAS GIVEN 1 EACH MISC MISCELLANE PRN (14:52)
--- NOTE | 2023-12-06 14:55 | P.PCN ---
Date of Procedure: 12/06/23 Operative Findings: CARDIAC CATHETERIZATION PERFORMING PHYSICIAN: Joshua Masterson MD, RPVI PROCEDURE PERFORMED: 1. Selective right and left coronary angiogram INDICATION: Chest discomfort and abnormal stress echocardiogram COMPLICATION: None APPROACH: Right radial artery LEVEL OF SEDATION: Moderate with a sedation length of 19 minutes PROCEDURE DESCRIPTION: After obtaining an informed consent, the patient was brought to cardiac optical laboratory technician. Local anesthesia was performed using lidocaine subcutaneously. The right radial artery was cannulated using micropuncture technique and the micropuncture wire passed easily then placed a 6-[place] sheath over the wire. Subsequently the sheath was flushed and secured. Following that, 2 mg of verapamil along with 5000 unit heparin were given. Selective right and left coronary angiogram using a 6-[place] JR4 and JL 3.5 catheters. The procedure was completed there was no complication. SELECTIVE CORONARY ANGIOGRAM: The right coronary artery: Large-caliber vessel and a dominant vessel and appears to be angiographically normal Left main: Is angiographically normal The left circumflex: Large-caliber vessel codominant vessel and appears to be angiographically normal as well. Distally gives the PDA branch which appears to be normal The left anterior descending artery: Is angiographically normal. As into the first and second diagonal branches and both appeared to be normal CONCLUSION: 1. Normal coronary angiogram POSTPROCEDURE MANAGEMENT: Medical treatment
[2023-12-06] MEDS: IOPAMIDOL-370 100ML BTL INTRATHECA ONE (14:57)
[2023-12-06] MEDS: SODIUM CHLORIDE 0.9% 1,000 ML IV ONE (14:57)
[2023-12-06] MEDS: FLUTICASONE 50MCG/SPRAY NASAL 16GM EA NOSTRIL SCH (20:57)
[2023-12-06] MEDS: TAMSULOSIN 0.4 MG CAP.ER.24H PO SCH (20:57)
[2023-12-07] MEDS ORDERED: HEPARIN SODIUM,PORCINE 10,000 UNIT in SODIUM CHLORIDE 0.9% 1,000 ML IRRIGATION PRN (07:00)
[2023-12-07] MEDS ORDERED: HEPARIN SODIUM,PORCINE (1 ML) 2,500 UNIT in SODIUM CHLORIDE 0.9% 250 ML IRRIGATION PRN (07:00)
[2023-12-07 07:57] VITALS: BP 145/72; PULSE 64; RESP 20; TEMP 97.5
[2023-12-07 08:30] LABS: Basophils # (A) 0.02 X 10*3/uL (0.00-0.10); Basophils % (A) 0.1 %; Eosinophils # (A) 0 X 10*3/uL (0.04-0.35); Eosinophils % (A) 0 %; HCT 44.1 % (39.6-50.0); HGB 15.5 g/dL (13.0-17.0); Lymphocytes # (A) 0.86 X 10*3/uL (0.90-5.00); Lymphocytes % (A) 5.3 %; MCH 32.9 pg (27.0-32.0); MCHC 35.1 g/dL (32.0-37.0); MCV 93.6 FL (80.0-97.0); Mean Platelet Volume 9.2 FL (9.5-12.2); Monocytes # (A) 0.51 X 10*3/uL (0.20-1.00); Monocytes % (A) 3.1 %; NRBC Per 100 WBC 0 X 10*3/uL (0.00-0.01); Neutrophils # (A) 14.83 X 10*3/uL (1.80-7.70); Neutrophils % (A) 91.1 %; Platelet Count 247 X 10*3/uL (140-440); RBC 4.71 X 10*6/uL (4.40-5.60); RDW 12.5 % (11.5-14.5); WBC 16.29 X 10*3/uL (4.50-10.00)
[2023-12-07 09:05] LABS: BUN/Creat Ratio 23.88 Ratio (12.00-20.00); Blood Urea Nitrogen 19.1 mg/dL (9.0-27.0); Calcium 9.3 mg/dL (8.7-10.3); Carbon Dioxide 22.3 mmol/L (21.6-31.8); Chloride 104 mmol/L (96-109); Glucose 189 mg/dL (70-110); Potassium 4.5 mmol/L (3.5-5.5); Sodium 138 mmol/L (135-145)
[2023-12-07] MEDS: METOPROLOL SUCCINATE (ER) 25 MG TAB.ER.24H PO SCH (10:21)
[2023-12-07] MEDS ORDERED: RIVAROXABAN 20 MG TAB PO SCH (17:30)
== END 2023-12-07 10:25 | disposition home or self-care (01) ==
LOC: EC 19:17 → 6NMEDSUR 12-06 00:16
PROVIDERS: ADMIT Hospitalist; ATTEND Hospitalist
DX: R07.89 Other chest pain (principal); I48.0 Paroxysmal atrial fibrillation; G47.33 Obstructive sleep apnea (adult) (pediatric); I07.1 Rheumatic tricuspid insufficiency; R00.1 Bradycardia, unspecified; D72.829 Elevated white blood cell count, unspecified; R94.39 Abnormal result of other cardiovascular function study; R03.0 Elevated blood-pressure reading, without diagnosis of hypertension; E66.9 Obesity, unspecified; Z68.35 Body mass index [BMI] 35.0-35.9, adult; J30.2 Other seasonal allergic rhinitis; Z79.01 Long term (current) use of anticoagulants; Z79.899 Other long term (current) drug therapy; Z88.5 Allergy status to narcotic agent; Z91.041 Radiographic dye allergy status; Z87.891 Personal history of nicotine dependence
CPT/HCPCS: 96376; 96375; 96374; 99285; 36415; 94760 ×2; 93005; 93351; 93454; 80053; 80048; 83735; 84484 ×2; 85025 ×2; 85610; 85730; 71046; G0378 ×2; C1769 ×2; C1894; J2250; J2270; J1200; J2930; J2001; Q9957; J1644; J1170; Q9967; J3010

== ENCOUNTER → 2024-02-15 | Outpatient (CLI) | payer OTHER ==
[2024-02-15 15:43] VITALS: BP 146/89; PULSE 85; RESP 18; TEMP 98.2
--- NOTE | 2024-02-15 16:14 | P.SLEEP ---
History of Present Illness DATE: 02/15/2024 CONSULTATION/NEW PATIENT EVALUATION HISTORY OF PRESENT ILLNESS/SLEEP-WAKE EVALUATION: 58-year-old gentleman had b een evaluated in the sleep center for obstructive sleep apnea hypopnea syndrome. Patient has history of obstructive sleep apnea hypopnea syndrome diagnosed in our institution 17 years ago. Patient continued to use CPAP equipment every night for the whole night. I checked his CPAP unit. Pressure is 10 cm of water, usage is 100% of nights, average 7.6 hours. CPAP unit is old, does not have information about apnea hypopnea index. About 4 months ago patient had home sleep apnea test arranged by [facility], which showed significant abnormalities of respiration according to patient. SLEEP SCHEDULE: Usually sleep schedule from midnight until 8 AM 7 days a week. FALLING ASLEEP: No problems with falling asleep. DURING SLEEP: Usually no snoring with CPAP but patient may wake up from sleep s everal times. Positive history of restless leg symptoms no history of hypnogogical hallucinations, sleep paralysis, or cataplexy. DURING THE DAY/WAKE STATE: In the morning patient wake up tired, has difficulties to pay attention, falling asleep during the day. [place] sleepiness scale is significantly increased to 16. PAST MEDICAL HISTORY: Episodes of atrial fibrillation, PTSD, acid reflux, BPH. PAST SURGICAL HISTORY: Bilateral knee replacement, cervical fusion. MEDICATIONS: Please see below. SOCIAL HISTORY: Please see below. FAMILY HISTORY: Please see below. REVIEW OF SYSTEMS: Tiredness and sleepiness. No fevers. No double vision. No recent chest pain. No shortness of breath. No abdominal pain. No bleeding episodes. No blood in urine. No seizure episodes. PHYSICAL EXAMINATION: GENERAL: A pleasant patient without any distress. VITAL SIGNS: Please see below, weight 313.8 pounds, BMI 41.0. HEENT: PERRLA, EOMI. Evaluation of oropharynx showed tongue protrudes midline, l ow position of soft palate Mallampati 4. NECK: Supple. No JVD. Thyroid is not palpable. 20 inches in circumference. LUNGS: Clear to percussion and to auscultation. Good air exchange. No wheezing or rhonchi. HEART: S1, S2 regular. No murmurs, gallops or rubs. ABDOMEN: Soft and nontender. Bowel sounds are present. No organomegaly appreciated. EXTREMITIES: No clubbing or cyanosis. ACADEMIC SERVICES PROFESSIONAL: Awake, alert, and oriented x3. Cranial nerves 2 to 7 intact. There is no fasciculation or atrophy noted. No focal deficits observed. ASSESSMENT: 1. History of obstructive sleep apnea hypopnea syndrome for 17 years. Patient continued to use CPAP equipment every night, but feels not refreshed in the morning after awakenings. CPAP unit is old and does not have information about apnea hypopnea index. Recent home sleep apnea test which was done by [facility] confirmed sleep apnea according to patient. Extremely low position of soft palate Mallampati 4, extremely wide neck 20 inches. 2. Obesity, BMI 41.0. 3. History of paroxysmal atrial fibrillation. 4. History of PTSD. 5 acid reflux. 6 . BPH. 7. Status post bilateral knee replacement. 8. Status post cervical fusion. PLAN: 1. We will get results of recent home sleep apnea test which was done in [facility]. 2. CPAP/BiPAP titration for evaluation of effective CPAP pressure at the present time for correction of respiratory abnormalities during sleep. 3. Prescription for new PAP unit following results of titration. 4. No driving if patient feels any sleepiness. Patient is aware of civil and criminal liability for unsafe driving. 5. Sleep hygiene with regular sleep time for at least 7.5-8 hours. 6. Watching and losing weight. Thank you very much for referring this patient for consultation. Sincerely, Sal Hill MD, PhD, FAASM. Diplomat of [place] [employer], Sleep Medicine Board by [place] [employer] [place] [employer] Shuttle Inspector of [place] [place] Past Medical History Past Medical History: No Reported History, Atrial Fibrillation, Sleep Apnea/CPAP/BIPAP Additional Past Medical History / Comment(s): SEASONAL ALLERGIES. PT HAD RLE INJURY WITH STAPH INFECTION (SUSPECTED MRSA) IN 2017-WAS ON VANCOMYCIN FOR 5 DAYS., SINUSISTIS, RHINITIS, IBS, NECK FUSION C5/C6, KALIA, NEED BILATERAL KNEE REPLACEMENTS - CURRENTLY GETTING INJECTIONS, SEASONAL ALLERGIES, PTSD. History of Any Multi-Drug Resistant Organisms: None Reported Past Surgical History: Appendectomy, Back Surgery, Orthopedic Surgery Additional Past Surgical History / Comment(s): bilat knee x 6, c5-6 fusion 1999, right rotator cup, deviated septum rx, Past Anesthesia/Blood Transfusion Reactions: Family Hisory of Malignant Hyperthermia, Postoperative Nausea & Vomiting (PONV) Additional Past Anesthesia/Blood Transfusion Reaction / Comment(s): PT HAS HAD ANESTHESIA WITH NO PROBLEMS Past Psychological History: PTSD Smoking Status: Former smoker Past Alcohol Use History: Rare Additional Past Alcohol Use History / Comment(s): QUIT SMOKING 17 YEARS AGO Past Drug Use History: None Reported - Past Family History Mother Family Medical History: No Reported History Father Family Medical History: Cancer, Congestive Heart Failure (CHF) Additional Family Medical History / Comment(s): prostate ca (GRANDPARENTS HAD ALZHEIMERS), MOMS DAD OF CARDIAC IN HIS 50'S, DADS DAD OF PROSTATE CA. Medications and Allergies Home Medications Medication Instructions Recorded Confirmed Type Cetirizine HCl 10 mg PO DAILY PRN 11/29/21 02/15/24 History Azelastine HCl [Astelin Nasal 1 spray EA NOSTRIL DAILY 11/29/23 12/06/23 History [place]] Pantoprazole [Protonix] 40 mg PO BID 11/29/23 02/15/24 History Pravastatin Sodium [Pravachol] 20 mg PO DAILY 11/29/23 02/15/24 History Tamsulosin [Flomax] 0.4 mg PO DAILY 11/29/23 02/15/24 History Testosterone [Androgel 1.62%] 2 pump TRANSDERM DAILY 11/29/23 12/06/23 History Rivaroxaban [Xarelto] 20 mg PO W/SUPPER #30 tab 12/01/23 02/15/24 Rx Metoprolol Succinate (ER) [Toprol 25 mg PO DAILY #30 tab 12/07/23 Rx XL] Flecainide [Tambocor] 100 mg PO Q12HR 02/15/24 02/15/24 History Verapamil [Isoptin] 40 mg PO BID 02/15/24 02/15/24 History Allergies Allergy/AdvReac Type Severity Reaction Status Date / Time Iodinated Contrast Media Allergy Anaphylaxis Verified 12/06/23 08:23 [Iodinated Contrast Media - IV Dye] codeine AdvReac Nausea & Verified 12/06/23 08:23 Vomiting FAMILY HX MALIGNANT AdvReac Unknown Uncoded 12/05/23 19:31 HYPERTHERMIA Physical Exam Vitals: Vital Signs Temp Pulse Resp BP Pulse Ox 02/15/24 15:21 98.2 F 85 18 146/89 96 Intake and Output 02/15/24 02/15/24 02/15/24 06:59 14:59 22:59 Other: Weight 142.201 kg Sleep Note - Sleep Data ESS Total: 16 - Sleep Note Sleep Note: Temperature: 98.2 F Pulse Rate: 85 Respiratory Rate: 18 Blood Pressure: 146/89 SpO2: 96 Height: 6 ft 1.2 in Weight: 142.201 kg BMI: Neck Circumference: 20
== END ==
LOC: 3 N SLEEP 14:52
PROVIDERS: ATTEND Internal Medicine
DX: G47.33 Obstructive sleep apnea (adult) (pediatric) (principal); E66.9 Obesity, unspecified; K21.9 Gastro-esophageal reflux disease without esophagitis; N40.0 Benign prostatic hyperplasia without lower urinary tract symptoms; Z86.59 Personal history of other mental and behavioral disorders; Z86.79 Personal history of other diseases of the circulatory system; Z96.653 Presence of artificial knee joint, bilateral; Z98.1 Arthrodesis status; Z68.41 Body mass index [BMI] 40.0-44.9, adult; Z87.891 Personal history of nicotine dependence; Z91.041 Radiographic dye allergy status; Z88.5 Allergy status to narcotic agent; Z88.8 Allergy status to other drugs, medicaments and biological substances
CPT/HCPCS: 99211

== ENCOUNTER 2024-03-06 19:51 | Outpatient (CLI) | payer OTHER ==
--- NOTE | 2024-03-07 11:59 | P.PCN ---
Description of Procedure: CLINICAL: Titration with positive air pressure has been done for correction of respiratory abnormalities during sleep. DESCRIPTION OF PROCEDURE: The standard montage for clinical polysomnography included the electroencephalogram, the electrocardiogram, the mentalis surface electromyography and Lead II cardiography. The respiratory battery consisted of measurements of nasal /buccal air flow, pressure transducer measurements from the nose, thoracic and /or abdominal effort and intercostal surface electromyography. Video monitoring has been done to check for any parasomnia events. Nocturnal oxyhemoglobin saturations were obtained by finger oximetry. Step-kraus titration with positive airway pressure was utilized to control respiratory events. Raw data of sleep recording has been reviewed and is adequate. RESULTS: Sleep efficiency was decreased to 69.7%. Latency to sleep onset was normal at 12.5 minutes.]. Sleep architecture showed stage N1 was short 1.8%, Delta sleep was absent 0%, REM sleep was borderline 19.4%. Heart rate was minimum 52 BPM, maximum 64 BPM, average 57 BPM. EMG showed 119.6 periodic limb movements per hour with 0 micriarousals per hour. PAP titration have been done with CPAP up to the pressure 13 cm H2O. Good respiration on CPAP, total apnea hypopnea index only 0.2. IMPRESSION: 1. Obstructive sleep apnea hypopnea syndrome on controle with PAP treatment. 2. Severe periodic limb movements have been documented, but without significant amount of microarousal's related to leg movements. Please see other impressions from consultation. PLAN: 1. The patient will have treatment with positive air pressure equipment with the level of pressure 8-13 cm H2O and should use it every night for the whole night. 2. Watching and losing weight. 3. Sleep hygiene with regular time in bed for at least 8 hours. 4. No driving if feeling any sleepiness. 5. I will see the patient for follow up visit to explain the results of the test, recommendations, check compliance with treatment and make any necessary adjustment related to mask fitting, pressure and humidification. 6. Please check iron profile including ferritin level. Low level of iron may increase risk for periodic limb movements Thank you very much for allowing me to participate in the management of your patient. Sincerely, Sal Hill MD, PhD, FAASM Diplomat of [place] [employer] Sleep Medicine Board of [place] [employer] Site Auditor of [facility] [place] [facility] [place] cc: Jewell August MD
== END 2024-03-07 05:24 | disposition home or self-care (01) ==
LOC: 3 N SLEEP 19:51
PROVIDERS: ATTEND Internal Medicine
DX: G47.33 Obstructive sleep apnea (adult) (pediatric) (principal); G47.61 Periodic limb movement disorder; Z91.041 Radiographic dye allergy status; Z88.5 Allergy status to narcotic agent; Z88.8 Allergy status to other drugs, medicaments and biological substances; Z87.891 Personal history of nicotine dependence
CPT/HCPCS: 95811

== ENCOUNTER → 2024-07-11 | Outpatient (CLI) | payer OTHER ==
[2024-07-11 10:30] VITALS: BP 118/78; PULSE 74; RESP 16; TEMP 97.9
--- NOTE | 2024-07-11 13:16 | P.PROGSL ---
Subjective DATE: [] FOLLOW UP VISIT. Patient with obstructive sleep apnea hypopnea syndrome return to sleep center for follow-up visit. Recently patient had titration sleep study for correction of obstructive sleep apnea hypopnea syndrome. Patient received new CPAP equipment, 2 days first visit with new CPAP unit Patient was able to use PAP equipment every night for the whole night. The patient does not have significant problems with the mask, PAP pressure and humidification. Lott sleepiness scale is increased to 15. I checked information from PAP unit. PAP unit pressure 8-15, average 13.8 cm H2O. Usage is 100% for more then 4 hours, average 8 hours per night. Leak is 8 l/m, which is in acceptable range. Apnea Hypopnea Index is 0.1, which is perfect range. MEDICATIONS: Please see below During physical exam: GENERAL: A pleasant patient without any distress. VITAL please see below, weight 295 pounds. HEENT: PERRLA, EOMI.low position of soft palate, Mallapati 4 . NECK: Supple. No JVD. LUNGS: Clear to percussion and to auscultation. Good air exchange. No wheezing or rhonchi. HEART: S1, S2 regular. ABDOMEN: Soft and nontender.[] EXTREMITIES: No clubbing or cyanosis. CROSSBAR FR[employer] W[employer]ER: Awake, alert, and oriented x3. No focal deficit. Impressions: 1. Obstructive sleep apnea-hypopnea syndrome. Patient demonstrated great compliance with treatment, benefiting from treatment. 2. Obesity, patient lost 18 pounds since previous visit. 3. History of paroxysmal atrial fibrillation. 4. History of PTSD. 5. BPH. 6. Acid reflux. 7. Status post bilateral knee replacement. 8. Status post cervical fusion. Plan: 1. Continue using PAP equipment every night for the whole night. 2. To change air filter at least 1-2 times per month. 3. PAP unit should stay lower then position of the head. 4. Advised patient to remove all remaining water from humidifier canister daily and make it dry after each usage. Refill canister with fresh distilled water before each usage. 5. Sleep hygiene with regular time in bed for at least 8 hours. 6. Precautions related to driving. No driving if feel any sleepiness. 7. I will maintain prescription for PAP supplies including mask, tube, filters. 8. Follow up visit in 6 months or earlier if patient has any problems. 9. Watching and continue losing weight. Thank you very much for allowing me to participate in the management of your patient. Sal Hill MD, PhD, FAASM. Diplomat of [employer], Sleep Medicine Board by [employer] Program Aide of [facility] [place] Objective - Vital Signs Vital Signs: Vital Signs Temp 97.9 F 07/11/24 10:28 Pulse 74 07/11/24 10:28 Resp 16 07/11/24 10:28 BP 118/78 07/11/24 10:28 Pulse Ox 97 07/11/24 10:28 FiO2 Home Medications: Home Medications Medication Instructions Recorded Confirmed Type Cetirizine HCl 10 mg PO DAILY PRN 11/29/21 02/15/24 History Azelastine HCl [Astelin Nasal 1 spray EA NOSTRIL DAILY 11/29/23 12/06/23 History [place]] Pantoprazole [Protonix] 40 mg PO BID 11/29/23 02/15/24 History Pravastatin Sodium [Pravachol] 20 mg PO DAILY 11/29/23 02/15/24 History Tamsulosin [Flomax] 0.4 mg PO DAILY 11/29/23 02/15/24 History Testosterone [Androgel 1.62%] 2 pump TRANSDERM DAILY 11/29/23 12/06/23 History Rivaroxaban [Xarelto] 20 mg PO W/SUPPER #30 tab 12/01/23 02/15/24 Rx Metoprolol Succinate (ER) [Toprol 25 mg PO DAILY #30 tab 12/07/23 Rx XL] Flecainide [Tambocor] 100 mg PO Q12HR 02/15/24 02/15/24 History Verapamil [Isoptin] 40 mg PO BID 02/15/24 02/15/24 History
== END ==
LOC: 3 N SLEEP 10:13
PROVIDERS: ATTEND Internal Medicine
CPT/HCPCS: 99212